=== PATIENT | male | born 1965 | race Caucasian/White ===

== ENCOUNTER → 2017-12-15 | Outpatient (CLI) | payer OTHER ==
--- NOTE | 2017-12-15 12:40 | Diagnostic Imaging Report ---
PROCEDURE: MR imaging cervical spine without contrast. TECHNIQUE: Multiplanar/multisequence MR imaging of the cervical spine was performed without contrast. INDICATION: Neck pain. COMPARISON: No prior MRI studies are available for comparison. FINDINGS: The curvature and alignment of the cervical spine are normal. The vertebral body marrow signal is normal. There is fairly normal height and hydration of the cervical discs. The cervical spinal cord demonstrates homogeneous signal intensity and normal morphology. No focal disc protrusion is seen. No significant central canal or neuroforaminal stenosis is identified. IMPRESSION: Essentially unremarkable MRI of the cervical spine. Dictated by: Dictated on workstation # [id number]
== END ==
LOC: RAD 11:38
PROVIDERS: ATTEND Family Medicine
DX: M54.2 Cervicalgia (principal)
CPT/HCPCS: 72141

== ENCOUNTER 2018-11-06 05:59 | Outpatient (CLI) | payer OTHER ==
[~2018-11-06] VITALS: Ht 167.6 cm; Wt 79.4 kg
[2018-11-06] MEDS ORDERED: BACL20TA PO (10:26)
[2018-11-06] MEDS ORDERED: MELO7.5T46 PO (10:26)
[2018-11-06] MEDS ORDERED: DULO60CA6 PO (10:26)
[2018-11-06] MEDS ORDERED: GABA600T2 PO (10:26)
[2018-11-06] MEDS ORDERED: TRAM50TA2 PO (10:26)
[2018-11-06] MEDS ORDERED: LISI-552 PO (10:26)
[2018-11-06] MEDS ORDERED: TIZA4CAP8 PO (10:26)
== END 2018-11-06 10:31 | disposition home or self-care (01) ==
LOC: PREOP 05:59
PROVIDERS: ATTEND Surgery
DX: Z01.818 Encounter for other preprocedural examination (principal)

== ENCOUNTER 2018-11-08 13:02 | Day surgery (SDC) | payer OTHER ==
[~2018-11-08] VITALS: Ht 167.6 cm; Wt 79.4 kg
[~2018-11-08 13:02] MED LIST: BACL20TA PO; DULO60CA6 PO; GABA600T2 PO; LISI-552 PO; MELO7.5T46 PO; TIZA4CAP8 PO; TRAM50TA2 PO
--- OUTSIDE RECORDS SUMMARY | 2018-11-08 13:21 | XMS REPORT ---
Author Author MEHRAN WATSON [facility] [place] Address [address] [place] [address] Phone Unavailable Care Team Providers Care Recruitment Internship Name Role Phone MEHRAN WATSON Unavailable Unavailable PROBLEMS Type Condition ICD9-CM Code OMS41-MI Code Onset Dates Condition Status SNOMED Code Problem Gastroesophageal reflux disease without esophagitis K21.9 Active 030188037 Problem Chronic pain syndrome G89.4 Active 042525430 Problem Degenerative disc disease, cervical M50.30 Active 21328163 Problem Chronic prescription opiate use Z79.891 Active 896755617 Problem Severe episode of recurrent major depressive disorder, without psychotic features F33.2 Active 06425330 Problem Degenerative disc disease, lumbar M51.36 Active 74533756 Problem Myoclonic jerking G25.3 Active 74781631 Problem Other chronic pain G89.29 Active 83573347 Problem Periodic limb movement disorder G47.61 Active 439473939 Problem Other constipation K59.09 Active 166569946978937 Problem Sacrococcygeal disorders, not elsewhere classified M53.3 Active 827195747 Problem Essential hypertension I10 Active 96098000 ALLERGIES Substance Reaction Event Type Date Status Lyrica Unknown Drug Allergy Jul, Active tegaderm Unknown Non Drug Allergy Jul, Active ENCOUNTERS Encounter Location Date Diagnosis [facility] [place] [id number] [place] [address] 35830- 1294 Sep, [facility] [address] [place] [address] 27535 -2326 Jul, Puncture wound without foreign body, right foot, initial encounter S91.331A ; Local infection of the skin and subcutaneous tissue, unspecified L08.9 and Encounter for immunization Z23 [facility] [place] [address] [address] 18 Jul, 2018 Degenerative disc disease, lumbar M51.36 [facility] [place] [id number] [place] [address] 41978- 9798 Jun, Degenerative disc disease, lumbar M51.36 [facility] [place] [id number] [place] [address] 67043- 5199 Jun, Chronic pain syndrome G89.4 ; Degenerative disc disease, lumbar M51.36 ; Essential hypertension I10 ; Myoclonic jerking G25.3 and Muscle spasm of back M62.830 [facility] [place] [id number] [place] [address] 51186- 5101 May, Acute non-recurrent frontal sinusitis J01.10 [place] [id number] [place] [address] 34386- 4127 May, Chronic pain syndrome G89.4 [place] [id number] [place] [address] 02601- 9689 Apr, Chronic pain syndrome G89.4 [place] [id number] [place] [address] 61105- 8506 March, Chronic pain syndrome G89.4 [facility] [place] [id number] [place] [address] 20411- 9854 Feb, Essential hypertension I10 ; Chronic pain syndrome G89.4 ; Periodic limb movement disorder G47.61 ; Myoclonic jerking G25.3 and Pain of left great toe M79.675 [place] [id number] [place] [address] 86742- 2173 Feb, [facility] [place] [id number] [place] [address] 04004- 6611 Feb, Chronic pain syndrome G89.4 [facility] [place] [id number] [place] [address] 30373- 6251 Dec, Chronic pain syndrome G89.4 [facility] [place] [id number] [place] [address] 03370- 9829 Nov, [facility] [place] [address] 23255- [address] Nov, Neck pain M54.2 ; Left hand weakness R29.898 ; Degenerative disc disease, cervical M50.30 ; Chronic prescription opiate use Z79.891 and Myoclonic jerking G25.3 [place] [id number] [place] [address] 60275- 3701 Nov, Chronic pain syndrome G89.4 [place] [id number] [place] [address] 55740- 7526 Sep, Chronic pain syndrome G89.4 [place] [address] 81864- 1909 Sep, Acute non-recurrent frontal sinusitis J01.10 [place] [id number] [place] [address] 52165- 1416 Aug, Chronic pain syndrome G89.4 [place] [id number] [place] [address] 13003- 9477 Jul, Other chronic pain G89.29 ; Sacrococcygeal disorders, not elsewhere classified M53.3 ; Essential hypertension I10 ; Other constipation K59.09 and Chronic pain syndrome G89.4 [place] [id number] [place] [address] 64188- 7332 Jun, Chronic pain syndrome G89.4 [place] [id number] [place] [address] 92277- 1131 May, Chronic pain syndrome G89.4 [place] [id number] [place] [address] 86885- 1701 Apr, Chest pain, unspecified type R07.9 [place] [id number] [place] [address] 85289- 4309 Apr, Chronic prescription opiate use Z79.891 ; Other constipation K59.09 ; Chest pain, unspecified type R07.9 ; Palpitations R00.2 and Essential hypertension I10 [place] [id number] [place] [address] 67699- 2454 Apr, Chronic pain syndrome G89.4 [place] [address] [place] [address] 79629- 5802 March, Chronic pain syndrome G89.4 [facility] [address] [place] [address] 33879 -3819 Feb, Acute non-recurrent frontal sinusitis J01.10 and Difficulty urinating R39.198 [place] [id number] [place] [address] 56209- 5189 Jan, [place] [id number] [place] [address] 41310- 6601 Jan, Chronic pain syndrome G89.4 [facility] [id number] [place] [address] 77823 -2562 Jan, Bronchitis J40 and OME (otitis media with effusion), bilateral H65.93 [place] [id number] [place] [address] 18563- 3322 Dec, Hematochezia K92.1 ; Periodic limb movement disorder G47.61 ; Chronic pain syndrome G89.4 ; Degenerative disc disease, cervical M50.30 ; Degenerative disc disease, lumbar M51.36 ; Other constipation K59.09 and SI joint arthritis M46.98 [place] [address] [place] [address] 27995- 7849 Oct, Chronic pain syndrome G89.4 [place] [id number] [place] [address] 82576- 0509 08 Oct, 2016 Chronic pain syndrome G89.4 ; Other constipation K59.09 ; Chronic prescription opiate use Z79.891 ; Degenerative disc disease, lumbar M51.36 ; Degenerative disc disease, cervical M50.30 ; Severe episode of recurrent major depressive disorder, without psychotic features F33.2 and Periodic limb movement disorder G47.61 [place] [id number] [place] [address] 42361- 0993 Sep, [place] [id number] [address] 20 Jul, 2016 Chronic prescription opiate use Z79.891 ; Chronic pain syndrome G89.4 ; Adverse effect of other opioids, initial encounter T40.2X5A and Other constipation K59.09 [place] [id number] [address] Jun, [place] [address] [address] 4762 May, [place] [address] [address] 3869 Apr, Chronic pain syndrome G89.4 ; Degenerative disc disease, cervical M50.30 ; Degenerative disc disease, lumbar M51.36 ; Gastroesophageal reflux disease without esophagitis K21.9 ; Severe episode of recurrent major depressive disorder, without psychotic features F33.2 ; Screening, lipid Z13.220 ; Urinary hesitancy R39.11 and Chronic prescription opiate use Z79.891 [place] [address] [facility] [id number] [address] 08 Apr, 2016 IMMUNIZATIONS Vaccine Route Administration Date Status TDAP (BOOSTRIX) IM Intramuscular Aug 09, 2018 Administered SOCIAL HISTORY Never Assessed REASON FOR VISIT Stepped on a nail Tuesday afternoon JStrasserRN PLAN OF CARE Activity Details Follow Up prn Reason: VITAL SIGNS Height 69 in 2018-08-09 Weight 175.8 lbs 2018-08-09 Temperature 98.3 degrees Fahrenheit 2018-08-09 Heart Rate 80 bpm 2018-08-09 Respiratory Rate 20 2018-08-09 BMI 25.96 kg/m2 2018-08-09 Blood pressure systolic 100 mmHg 2018-08-09 Blood pressure diastolic 70 mmHg 2018-08-09 MEDICATIONS Medication Instructions Dosage Frequency Start Date End Date Duration Status Gabapentin 800 MG Orally Three times a day 1 capsule 8h 90 Active Lisinopril 20 mg Orally Once a day 1 tablet 24h Apr, 90 days Active Cymbalta 60 mg Orally Once a day 2 capsules 24h Active Fluticasone Propionate 50 MCG/ACT Nasally Once a day 1 spray in each nostril 24h Feb, 30 day(s) Active Meloxicam 7.5 TAKE 1 TABLET BY MOUTH ONCE DAILY 30 Active Lumbar Back Brace/Support Pad Back stabilizer as directed Dec, lifetime Active Meloxicam 7.5 mg TAKE 1 TABLET BY MOUTH ONCE DAILY Active Requip 1 MG Orally Once a day can increase to bid if needed 1 tablet 1 to 3 hours before bedtime Feb, Active Baclofen 20 MG Orally 3 times a day 1 1/2 tablets 8h Dec, 30 days Active Tizanidine HCl 4 MG Orally Three times a day 1 tablet as needed 8h Dec 90 days Active Cephalexin 500 mg Orally 4 times a day 1 capsule 6h Jul, Jul, 10 day(s) Active Tramadol HCl 50 mg Orally 3 times a day 1 tablet as needed 8h 28 days Active RESULTS No Results PROCEDURES Procedure Date Ordered Result Body Site TDAP (BOOSTRIX) Aug 09, 2018 SINGLE IMMUNIZATION ADMIN Aug 09, 2018 INSTRUCTIONS MEDICATIONS ADMINISTERED No Known Medications MEDICAL (GENERAL) HISTORY Type Description Date Medical History depression Medical History lyme disease Medical History 19 years ago was in a work related accident-has been dealing with back, neck, shoulder, hip pain Medical History Gastroesophageal reflux disease without esophagitis Surgical History right rotator cuff tear repair Surgical History orthopedic surgery on both knees Surgical History Left rotator cuff repair Surgical History Nerve repair on left arm Hospitalization History Hospitalization for surgery only
--- OUTSIDE RECORDS SUMMARY | 2018-11-08 13:21 | XMS REPORT ---
Author Author SHERICE ANNAMARIE [facility] Address [address] [place] [address] Care Team Providers Care Housekeeper Cleaning Cooking Name Role Phone CHAGO SMILEYY Unavailable PROBLEMS Type Condition ICD9-CM Code AZU97-DL Code Onset Dates Condition Status SNOMED Code Problem Gastroesophageal reflux disease without esophagitis K21.9 Active 069130717 Problem Chronic pain syndrome G89.4 Active 706375766 Problem Degenerative disc disease, cervical M50.30 Active 91786629 Problem Chronic prescription opiate use Z79.891 Active 757181111 Problem Severe episode of recurrent major depressive disorder, without psychotic features F33.2 Active 34365297 Problem Degenerative disc disease, lumbar M51.36 Active 79013475 Problem Myoclonic jerking G25.3 Active 46894900 Problem Other chronic pain G89.29 Active 61412731 Problem Periodic limb movement disorder G47.61 Active 616226264 Problem Other constipation K59.09 Active 653610440823696 Problem Sacrococcygeal disorders, not elsewhere classified M53.3 Active 635426657 Problem Essential hypertension I10 Active 95976623 ALLERGIES No Information ENCOUNTERS Encounter Location Date Diagnosis [facility] [address] [address] Jul, Puncture wound without foreign body, right foot, initial encounter S91.331A ; Local infection of the skin and subcutaneous tissue, unspecified L08.9 and Encounter for immunization Z23 [facility] [address] [address] Jul, Degenerative disc disease, lumbar M51.36 [facility] [address] [place] [address] 75920- 7807 Jun, Degenerative disc disease, lumbar M51.36 [facility] [address] [place] [address] 94055- 9255 Jun, Chronic pain syndrome G89.4 ; Degenerative disc disease, lumbar M51.36 ; Essential hypertension I10 ; Myoclonic jerking G25.3 and Muscle spasm of back M62.830 [facility] [id number] [place] [address] 34820- 8988 May, Acute non-recurrent frontal sinusitis J01.10 [place] [address] [address]- [address] May, Chronic pain syndrome G89.4 [place] [id number] [place] [address] 74822- 9008 Apr, Chronic pain syndrome G89.4 [place] [id number] [place] [address] 47897- 9527 March, Chronic pain syndrome G89.4 [place] [address] 22830- 6818 Feb, Essential hypertension I10 ; Chronic pain syndrome G89.4 ; Periodic limb movement disorder G47.61 ; Myoclonic jerking G25.3 and Pain of left great toe M79.675 [place] [id number] [place] [address] 58840- 0386 Feb, [place] [id number] [place] [address] 94517- 5686 Feb, Chronic pain syndrome G89.4 [facility] [id number] [place] [address] 95974- 3569 Dec, Chronic pain syndrome G89.4 [facility] [id number] [place] [address] 96306- 8480 Nov, [place] [address] 61778- 9044 Nov, Neck pain M54.2 ; Left hand weakness R29.898 ; Degenerative disc disease, cervical M50.30 ; Chronic prescription opiate use Z79.891 and Myoclonic jerking G25.3 [place] [id number] [place] [address] 65555- 8599 Nov, Chronic pain syndrome G89.4 [facility] [id number] [place] [address] 00585- 0374 Sep, Chronic pain syndrome G89.4 [place] [id number] [place] [address] 63088- 3934 Sep, Acute non-recurrent frontal sinusitis J01.10 [place] [id number] [place] [address] 20143- 7257 Aug, Chronic pain syndrome G89.4 [place] [id number] [place] [address] 28357- 3826 Jul, Other chronic pain G89.29 ; Sacrococcygeal disorders, not elsewhere classified M53.3 ; Essential hypertension I10 ; Other constipation K59.09 and Chronic pain syndrome G89.4 [place] [id number] [place] [address] 33141- 2417 Jun, Chronic pain syndrome G89.4 [place] [id number] [place] [address] 72268- 2960 May, Chronic pain syndrome G89.4 [place] [id number] [place] [address] 07133- 3824 Apr, Chest pain, unspecified type R07.9 [place] [id number] [place] [address] 49819- 8461 Apr, Chronic prescription opiate use Z79.891 ; Other constipation K59.09 ; Chest pain, unspecified type R07.9 ; Palpitations R00.2 and Essential hypertension I10 [place] [id number] [place] [address] 69115- 7009 Apr, Chronic pain syndrome G89.4 [place] [id number] [place] [address] 35774- 0962 March, Chronic pain syndrome G89.4 [facility] [address] [place] [address] 80764 -4267 Feb, Acute non-recurrent frontal sinusitis J01.10 and Difficulty urinating R39.198 [facility] [address] [place] [address] 81295- 5654 Jan, [facility] [address] 80521- 5394 Jan, Chronic pain syndrome G89.4 [facility] [id number] [place] [address] 89349 -0392 Jan, Bronchitis J40 and OME (otitis media with effusion), bilateral H65.93 [facility] [id number] [place] [address] 06588- 0900 Dec, Hematochezia K92.1 ; Periodic limb movement disorder G47.61 ; Chronic pain syndrome G89.4 ; Degenerative disc disease, cervical M50.30 ; Degenerative disc disease, lumbar M51.36 ; Other constipation K59.09 and SI joint arthritis M46.98 [place] [id number] [place] [address] 26157- 1007 Oct, Chronic pain syndrome G89.4 [facility] [id number] [place] [address] 34602- 8037 08 Oct, 2016 Chronic pain syndrome G89.4 ; Other constipation K59.09 ; Chronic prescription opiate use Z79.891 ; Degenerative disc disease, lumbar M51.36 ; Degenerative disc disease, cervical M50.30 ; Severe episode of recurrent major depressive disorder, without psychotic features F33.2 and Periodic limb movement disorder G47.61 [place] [id number] [place] [address] 44620- 8241 Sep, [facility] [id number] [place] [address] 46230- 7668 20 Jul, 2016 Chronic prescription opiate use Z79.891 ; Chronic pain syndrome G89.4 ; Adverse effect of other opioids, initial encounter T40.2X5A and Other constipation K59.09 [place] [id number] [address]- 24[address] Jun, [place] [address] [address]- 4221 May, [place] [id number] [address]- 3130 Apr, Chronic pain syndrome G89.4 ; Degenerative disc disease, cervical M50.30 ; Degenerative disc disease, lumbar M51.36 ; Gastroesophageal reflux disease without esophagitis K21.9 ; Severe episode of recurrent major depressive disorder, without psychotic features F33.2 ; Screening, lipid Z13.220 ; Urinary hesitancy R39.11 and Chronic prescription opiate use Z79.891 [place] [id number] [address]- 9124 Apr, IMMUNIZATIONS No Known Immunizations SOCIAL HISTORY Never Assessed REASON FOR VISIT Controlled Med Refill PLAN OF CARE VITAL SIGNS MEDICATIONS Medication Instructions Dosage Frequency Start Date End Date Duration Status Tramadol HCl 50 mg Orally 3 times a day 1 tablet as needed 8h 28 days Active RESULTS No Results PROCEDURES No Known procedures INSTRUCTIONS MEDICATIONS ADMINISTERED No Known Medications MEDICAL [...]
--- OUTSIDE RECORDS SUMMARY | 2018-11-08 13:21 | XMS REPORT ---
Author Author SHERICE ANNAMARIE [facility] Address [address] [place] [address] Care Team Providers Care Drapery Operator Name Role Phone ANNAMARIE SMILEY Unavailable PROBLEMS Type Condition ICD9-CM Code DPC37-OX Code Onset Dates Condition Status SNOMED Code Problem Gastroesophageal reflux disease without esophagitis K21.9 Active 888801637 Problem Chronic pain syndrome G89.4 Active 649524395 Problem Degenerative disc disease, cervical M50.30 Active 00596902 Problem Chronic prescription opiate use Z79.891 Active 316297838 Problem Severe episode of recurrent major depressive disorder, without psychotic features F33.2 Active 01395781 Problem Degenerative disc disease, lumbar M51.36 Active 31074997 Problem Myoclonic jerking G25.3 Active 78842844 Problem Other chronic pain G89.29 Active 49755451 Problem Periodic limb movement disorder G47.61 Active 300477308 Problem Other constipation K59.09 Active 548969989501844 Problem Sacrococcygeal disorders, not elsewhere classified M53.3 Active 868000387 Problem Essential hypertension I10 Active 33882245 ALLERGIES Substance Reaction Event Type Date Status Lyrica Unknown Drug Allergy Sep, Active tegaderm Unknown Non Drug Allergy Sep, Active ENCOUNTERS Encounter Location Date Diagnosis [facility] [id number], [place] [address] Sep, Chronic pain syndrome G89.4 ; Degenerative disc disease, cervical M50.30 ; Degenerative disc disease, lumbar M51.36 ; Myoclonic jerking G25.3 ; Anemia, unspecified type D64.9 ; Abnormal bowel habits R19.8 and Other fatigue R53.83 [facility] [id number] [address] Sep, [facility] [id number] [address] Sep, Essential hypertension I10 [facility] [id number] [place] [address] 35988- 6117 Sep, Degenerative disc disease, lumbar M51.36 [facility] [id number] [place] [address] 65934- 4726 16 Aug, 2018 Degenerative disc disease, lumbar M51.36 [facility] [address] [address] 19 Jul, 2018 Puncture wound without foreign body, right foot, initial encounter S91.331A ; Local infection of the skin and subcutaneous tissue, unspecified L08.9 and Encounter for immunization Z23 [place] [address] [address] 18 Jul, 2018 Degenerative disc disease, lumbar M51.36 [place] [id number] [place] [address] 45669- 5113 Jun, Degenerative disc disease, lumbar M51.36 [place] [id number] [place] [address] 85769- 9199 Jun, Chronic pain syndrome G89.4 ; Degenerative disc disease, lumbar M51.36 ; Essential hypertension I10 ; Myoclonic jerking G25.3 and Muscle spasm of back M62.830 [place] [id number] [place] [address] 38850- 1971 May, Acute non-recurrent frontal sinusitis J01.10 [place] [id number] [place] [address] 00296- 4527 May, Chronic pain syndrome G89.4 [place] [id number] [place] [address] 07367- 5513 Apr, Chronic pain syndrome G89.4 [place] [id number] [place] [address] 70528- 3775 March, Chronic pain syndrome G89.4 [place] [id number] [place] [address] 53805- 7540 Feb, Essential hypertension I10 ; Chronic pain syndrome G89.4 ; Periodic limb movement disorder G47.61 ; Myoclonic jerking G25.3 and Pain of left great toe M79.675 [facility] [id number] [place] [address] 70217- 6033 Feb, [facility] [id number] [place] [address] 00138- 1696 Feb, Chronic pain syndrome G89.4 [facility] [id number] [place] [address] 73539- 1397 Dec, Chronic pain syndrome G89.4 [place] [id number] [place] [address] 31397- 9874 Nov, [facility] [id number] [place] [address] 12033- 6279 Nov, Neck pain M54.2 ; Left hand weakness R29.898 ; Degenerative disc disease, cervical M50.30 ; Chronic prescription opiate use Z79.891 and Myoclonic jerking G25.3 [facility] [id number] [place] [address] 30411- 3614 Nov, Chronic pain syndrome G89.4 [facility] [id number] [place] [address] 11587- 2838 Sep, Chronic pain syndrome G89.4 [facility] [id number] [place] [address] 99429- 0419 Sep, Acute non-recurrent frontal sinusitis J01.10 [facility] [id number] [place] [address] 08756- 1195 Aug, Chronic pain syndrome G89.4 [facility] [id number] [place] [address] 59355- 7494 Jul, Other chronic pain G89.29 ; Sacrococcygeal disorders, not elsewhere classified M53.3 ; Essential hypertension I10 ; Other constipation K59.09 and Chronic pain syndrome G89.4 [facility] [id number] [place] [address] 21249- 6038 Jun, Chronic pain syndrome G89.4 [place] [id number] [place] [address] 58921- 6958 May, Chronic pain syndrome G89.4 [place] [address] 90548- 0572 Apr, Chest pain, unspecified type R07.9 [place] [address] 82840- 2434 Apr, Chronic prescription opiate use Z79.891 ; Other constipation K59.09 ; Chest pain, unspecified type R07.9 ; Palpitations R00.2 and Essential hypertension I10 [place] [address] 94673- 1328 Apr, Chronic pain syndrome G89.4 [place] [address] 04041- 8984 March, Chronic pain syndrome G89.4 [facility] [address] [address] Feb, Acute non-recurrent frontal sinusitis J01.10 and Difficulty urinating R39.198 [place] [id number] [place] [address] 64881- 0351 Jan, [place] [address] 17086- 1303 Jan, Chronic pain syndrome G89.4 [facility] [id number] [place] [address] 90560 -4397 Jan, Bronchitis J40 and OME (otitis media with effusion), bilateral H65.93 [facility] [id number] [place] [address] 59121- 2519 Dec, Hematochezia K92.1 ; Periodic limb movement disorder G47.61 ; Chronic pain syndrome G89.4 ; Degenerative disc disease, cervical M50.30 ; Degenerative disc disease, lumbar M51.36 ; Other constipation K59.09 and SI joint arthritis M46.98 [place] [id number] [place] [address] 36545- 6827 Oct, Chronic pain syndrome G89.4 [place] [id number] [place] [address] 41215- 5513 Oct, Chronic pain syndrome G89.4 ; Other constipation K59.09 ; Chronic prescription opiate use Z79.891 ; Degenerative disc disease, lumbar M51.36 ; Degenerative disc disease, cervical M50.30 ; Severe episode of recurrent major depressive disorder, without psychotic features F33.2 and Periodic limb movement disorder G47.61 [place] [id number] [place] [address] 44643- 6112 Sep, [address] 15[address]- 0531 Jul, Chronic prescription opiate use Z79.891 ; Chronic pain syndrome G89.4 ; Adverse effect of other opioids, initial encounter T40.2X5A and Other constipation K59.09 [place] [id number] [place] [address] 29788- 6284 Jun, [place] [id number] [place] [address] 36851- 3361 May, [place] [id number] [place] [address] 52832- 8170 Apr, Chronic pain syndrome G89.4 ; Degenerative disc disease, cervical M50.30 ; Degenerative disc disease, lumbar M51.36 ; Gastroesophageal reflux disease without esophagitis K21.9 ; Severe episode of recurrent major depressive disorder, without psychotic features F33.2 ; Screening, lipid Z13.220 ; Urinary hesitancy R39.11 and Chronic prescription opiate use Z79.891 [place] [id number] [place] [address] 01256- 6602 08 Apr, 2016 IMMUNIZATIONS No Known Immunizations SOCIAL HISTORY Never Assessed REASON FOR VISIT Check up for pain and results from blood test done last week Sveta Parker PLAN OF CARE Activity Details Follow Up 3 Months Reason:Chronic pain VITAL SIGNS Height 69 in 2018-10-20 Weight 178.4 lbs 2018-10-20 Temperature 96.8 degrees Fahrenheit 2018-10-20 Heart Rate 77 bpm 2018-10-20 Respiratory Rate 20 2018-10-20 BMI 26.34 kg/m2 2018-10-20 Blood pressure systolic 132 mmHg 2018-10-20 Blood pressure diastolic 84 mmHg 2018-10-20 MEDICATIONS Medication Instructions Dosage Frequency Start Date End Date Duration Status Cymbalta 60 mg Orally Once a day 2 capsules 24h Active Fluticasone Propionate 50 MCG/ACT Nasally Once a day 1 spray in each nostril 24h Feb, 30 day(s) Active Lumbar Back Brace/Support Pad Back stabilizer as directed Dec, lifetime Active Lisinopril 20 mg Orally Once a day 1 tablet 24h Apr, 90 days Active Tizanidine HCl 4 MG Orally Three times a day 1 tablet as needed 8h Dec Active Baclofen 20 MG Orally 3 times a day 1 1/2 tablets 8h Dec, Active Tramadol HCl 50 mg Orally 3 times a day 1 tablet as needed 8h Active Gabapentin 800 MG Orally Three times a day 1 capsule 8h Active Meloxicam 7.5 mg TAKE 1 TABLET BY MOUTH ONCE DAILY Active RESULTS No Results PROCEDURES Procedure Date Ordered Result Body Site DRUG TEST PRSMV CHEM ANLYZR Oct 20, 2018 COMPLETE CBC W/AUTO DIFF WBC Oct 20, 2018 ASSAY OF IRON Oct 20, 2018 IRON BINDING TEST Oct 20, 2018 ASSAY THYROID STIM HORMONE Oct 20, 2018 ASSAY OF FERRITIN Oct 20, 2018 INSTRUCTIONS MEDICATIONS ADMINISTERED No Known Medications [...]
--- OUTSIDE RECORDS SUMMARY | 2018-11-08 13:21 | XMS REPORT ---
Author Author SHERICE ANNAMARIE [facility] Address [address] [place] [address] Care Team Providers Care A Operator Name Role Phone SHERICECOURTNEY MILLERHANY Unavailable PROBLEMS Type Condition ICD9-CM Code RXL79-WH Code Onset Dates Condition Status SNOMED Code Problem Gastroesophageal reflux disease without esophagitis K21.9 Active 579574978 Problem Chronic pain syndrome G89.4 Active 057065420 Problem Degenerative disc disease, cervical M50.30 Active 22328828 Problem Chronic prescription opiate use Z79.891 Active 258400410 Problem Severe episode of recurrent major depressive disorder, without psychotic features F33.2 Active 03540231 Problem Degenerative disc disease, lumbar M51.36 Active 63910744 Problem Myoclonic jerking G25.3 Active 59886295 Problem Other chronic pain G89.29 Active 96171916 Problem Periodic limb movement disorder G47.61 Active 638389234 Problem Other constipation K59.09 Active 815488892103429 Problem Sacrococcygeal disorders, not elsewhere classified M53.3 Active 140218053 Problem Essential hypertension I10 Active 92717555 ALLERGIES No Information ENCOUNTERS Encounter Location Date Diagnosis [place] [id number] [place] [address] 19416- 4905 Sep, [facility] [id number] [place] [address] 95478- 5898 Sep, [facility] [id number] [place] [address] 58179- 4626 Sep, Essential hypertension I10 [facility] [id number] [place] [address] 30589- 5373 Sep, Degenerative disc disease, lumbar M51.36 [facility] [id number] [place] [address] 73000- 4057 Aug, Degenerative disc disease, lumbar M51.36 [facility] [address] [place] [address] 81027 -2941 19 Jul, 2018 Puncture wound without foreign body, right foot, initial encounter S91.331A ; Local infection of the skin and subcutaneous tissue, unspecified L08.9 and Encounter for immunization Z23 [facility] [id number] [place] [address] 40099- 5761 18 Jul, 2018 Degenerative disc disease, lumbar M51.36 [facility] [id number] [place] [address] 16871- 2090 Jun, Degenerative disc disease, lumbar M51.36 [facility] [address] 10636- 8752 Jun, Chronic pain syndrome G89.4 ; Degenerative disc disease, lumbar M51.36 ; Essential hypertension I10 ; Myoclonic jerking G25.3 and Muscle spasm of back M62.830 [facility] [id number] [place] [address] 86807- 1597 May, Acute non-recurrent frontal sinusitis J01.10 [place] [address] 41058- 7369 May, Chronic pain syndrome G89.4 [facility] [id number] [place] [address] 38974- 1755 Apr, Chronic pain syndrome G89.4 [place] [address] 77560- 3382 March, Chronic pain syndrome G89.4 [place] [id number] [place] [address] 51275- 6000 Feb, Essential hypertension I10 ; Chronic pain syndrome G89.4 ; Periodic limb movement disorder G47.61 ; Myoclonic jerking G25.3 and Pain of left great toe M79.675 [facility] [id number] [place] [address] 62731- 3226 Feb, [facility] [address] [place] [address] 67930- 3967 Feb, Chronic pain syndrome G89.4 [facility] [id number] [place] [address] 15535- 2388 Dec, Chronic pain syndrome G89.4 [facility] [id number] [place] [address] 34378- 2879 Nov, [facility] [address] 98318- 9372 Nov, Neck pain M54.2 ; Left hand weakness R29.898 ; Degenerative disc disease, cervical M50.30 ; Chronic prescription opiate use Z79.891 and Myoclonic jerking G25.3 [place] [id number] [place] [address] 92802- 1439 Nov, Chronic pain syndrome G89.4 [facility] [id number] [place] [address] 10512- 9056 Sep, Chronic pain syndrome G89.4 [facility] [id number] [place] [address] 60927- 7877 Sep, Acute non-recurrent frontal sinusitis J01.10 [facility] [id number] [place] [address] 60638- 8337 Aug, Chronic pain syndrome G89.4 [facility] [id number] [place] [address] 96824- 5092 Jul, Other chronic pain G89.29 ; Sacrococcygeal disorders, not elsewhere classified M53.3 ; Essential hypertension I10 ; Other constipation K59.09 and Chronic pain syndrome G89.4 [facility] [id number] [place] [address] 58933- 3621 Jun, Chronic pain syndrome G89.4 [facility] [id number] [place] [address] 59543- 3847 May, Chronic pain syndrome G89.4 [place] [address] 28114- 8271 Apr, Chest pain, unspecified type R07.9 [place] [address] 78493- 1882 Apr, Chronic prescription opiate use Z79.891 ; Other constipation K59.09 ; Chest pain, unspecified type R07.9 ; Palpitations R00.2 and Essential hypertension I10 [place] [address] 61710- 5899 Apr, Chronic pain syndrome G89.[address] 46367- 2927 March, Chronic pain syndrome G89.4 [facility] [address] 72305 -6012 Feb, Acute non-recurrent frontal sinusitis J01.10 and Difficulty urinating R39.198 [place] [address] 01221- 4399 Jan, [address] 01055- 4807 Jan, Chronic pain syndrome G89.4 [facility] [place] [address] 26105 -6915 Jan, Bronchitis J40 and OME (otitis media with effusion), bilateral H65.93 [place] [address] 97736- 3149 Dec, Hematochezia K92.1 ; Periodic limb movement disorder G47.61 ; Chronic pain syndrome G89.4 ; Degenerative disc disease, cervical M50.30 ; Degenerative disc disease, lumbar M51.36 ; Other constipation K59.09 and SI joint arthritis M46.[address] 47391- 0378 Oct, Chronic pain syndrome G89.4 [place] [address] [place] [address] 90737- 1596 Oct, Chronic pain syndrome G89.4 ; Other constipation K59.09 ; Chronic prescription opiate use Z79.891 ; Degenerative disc disease, lumbar M51.36 ; Degenerative disc disease, cervical M50.30 ; Severe episode of recurrent major depressive disorder, without psychotic features F33.2 and Periodic limb movement disorder G47.61 [place] [id number] [place] [address] 21851- 3219 Sep, [place] [id number] [place] [address] 09151- 0904 Jul, Chronic prescription opiate use Z79.891 ; Chronic pain syndrome G89.4 ; Adverse effect of other opioids, initial encounter T40.2X5A and Other constipation K59.09 [place] [id number] [place] [address] 63140- 9132 Jun, [place] [address] 31966- 5731 May, [place] [id number] [place] [address] 40954- 5379 Apr, Chronic pain syndrome G89.4 ; Degenerative disc disease, cervical M50.30 ; Degenerative disc disease, lumbar M51.36 ; Gastroesophageal reflux disease without esophagitis K21.9 ; Severe episode of recurrent major depressive disorder, without psychotic features F33.2 ; Screening, lipid Z13.220 ; Urinary hesitancy R39.11 and Chronic prescription opiate use Z79.891 [place] [id number] [place] [address] 60081- 4110 08 Apr, 2016 IMMUNIZATIONS No Known Immunizations SOCIAL HISTORY Never Assessed REASON FOR VISIT Referral PLAN OF CARE VITAL SIGNS MEDICATIONS Unknown Medications RESULTS No Results PROCEDURES No Known procedures [...]
--- OUTSIDE RECORDS SUMMARY | 2018-11-08 13:22 | XMS REPORT ---
Author Author SHERICE ANNAMARIE [facility] Address [address] [place] [address] Care Team Providers Care Coordinator Of Library Services Name Role Phone CHAGO SMILEYY Unavailable PROBLEMS Type Condition ICD9-CM Code LEU00-FZ Code Onset Dates Condition Status SNOMED Code Problem Gastroesophageal reflux disease without esophagitis K21.9 Active 036419227 Problem Chronic pain syndrome G89.4 Active 483816960 Problem Degenerative disc disease, cervical M50.30 Active 46509075 Problem Chronic prescription opiate use Z79.891 Active 719231007 Problem Severe episode of recurrent major depressive disorder, without psychotic features F33.2 Active 63193824 Problem Degenerative disc disease, lumbar M51.36 Active 02868545 Problem Myoclonic jerking G25.3 Active 66474376 Problem Other chronic pain G89.29 Active 53444239 Problem Periodic limb movement disorder G47.61 Active 555482765 Problem Other constipation K59.09 Active 843449667491437 Problem Sacrococcygeal disorders, not elsewhere classified M53.3 Active 411937173 Problem Essential hypertension I10 Active 78049825 ALLERGIES No Information ENCOUNTERS Encounter Location Date Diagnosis [place] [id number] [place] [address] 54748- 9167 Jun, Degenerative disc disease, lumbar M51.36 [place] [id number] [place] [address] 66476- 0559 Jun, Chronic pain syndrome G89.4 ; Degenerative disc disease, lumbar M51.36 ; Essential hypertension I10 ; Myoclonic jerking G25.3 and Muscle spasm of back M62.830 [place] [id number] [place] [address] 86494- 0551 May, Acute non-recurrent frontal sinusitis J01.10 [place] [id number] [place] [address] 63425- 1534 May, Chronic pain syndrome G89.4 [facility] [address] [place] [address] 03865- 3538 Apr, Chronic pain syndrome G89.4 [facility] [id number] [place] [address] 99492- 5917 March, Chronic pain syndrome G89.4 [facility] [id number] [place] [address] 17933- 0627 Feb, Essential hypertension I10 ; Chronic pain syndrome G89.4 ; Periodic limb movement disorder G47.61 ; Myoclonic jerking G25.3 and Pain of left great toe M79.675 [facility] [id number] [place] [address] 30798- 3597 Feb, [facility] [id number] [place] [address] 93583- 4324 Feb, Chronic pain syndrome G89.4 [facility] [id number] [place] [address] 18925- 3023 Dec, Chronic pain syndrome G89.4 [facility] [id number] [place] [address] 92559- 7150 Nov, [facility] [id number] [place] [address] 22657- 5323 Nov, Neck pain M54.2 ; Left hand weakness R29.898 ; Degenerative disc disease, cervical M50.30 ; Chronic prescription opiate use Z79.891 and Myoclonic jerking G25.3 [facility] [address] [place] [address] 67128- 6038 Nov, Chronic pain syndrome G89.4 [facility] [id number] [place] [address] 44740- 3578 Sep, Chronic pain syndrome G89.4 [facility] [id number] [place] [address] 66206- 5840 Sep, Acute non-recurrent frontal sinusitis J01.10 [facility] [id number] [place] [address] 00367- 9039 Aug, Chronic pain syndrome G89.4 [facility] [id number] [place] [address] 25483- 4034 Jul, Other chronic pain G89.29 ; Sacrococcygeal disorders, not elsewhere classified M53.3 ; Essential hypertension I10 ; Other constipation K59.09 and Chronic pain syndrome G89.4 [facility] [address] 78010- 9081 Jun, Chronic pain syndrome G89.4 [place] [address] 26514- 3740 May, Chronic pain syndrome G89.4 [facility] [id number] [place] [address] 96623- 0599 Apr, Chest pain, unspecified type R07.9 [facility] [address] 42354- 5575 Apr, Chronic prescription opiate use Z79.891 ; Other constipation K59.09 ; Chest pain, unspecified type R07.9 ; Palpitations R00.2 and Essential hypertension I10 [facility] [id number] [place] [address] 68148- 1501 Apr, Chronic pain syndrome G89.4 [facility] [id number] [place] [address] 44385- 5499 March, Chronic pain syndrome G89.4 [facility] [place] [facility] [id number] [place] [address] 17399 -3005 Feb, Acute non-recurrent frontal sinusitis J01.10 and Difficulty urinating R39.198 [facility] [id number] [place] [address] 32865- 7514 Jan, [facility] [address] 84150- 3311 Jan, Chronic pain syndrome G89.4 [facility] [address] [place] [address] 33325 -3600 Jan, Bronchitis J40 and OME (otitis media with effusion), bilateral H65.93 [facility] [id number] [place] [address] 24672- 1231 Dec, Hematochezia K92.1 ; Periodic limb movement disorder G47.61 ; Chronic pain syndrome G89.4 ; Degenerative disc disease, cervical M50.30 ; Degenerative disc disease, lumbar M51.36 ; Other constipation K59.09 and SI joint arthritis M46.98 [facility] [id number] [place] [address] 99319- 8646 Oct, Chronic pain syndrome G89.4 [facility] [id number] [place] [address] 55225- 0408 Oct, Chronic pain syndrome G89.4 ; Other constipation K59.09 ; Chronic prescription opiate use Z79.891 ; Degenerative disc disease, lumbar M51.36 ; Degenerative disc disease, cervical M50.30 ; Severe episode of recurrent major depressive disorder, without psychotic features F33.2 and Periodic limb movement disorder G47.61 [facility] [id number] [place] [address] 39536- 1967 Sep, [facility] [id number] [place] [address] 94452- 1937 Jul, Chronic prescription opiate use Z79.891 ; Chronic pain syndrome G89.4 ; Adverse effect of other opioids, initial encounter T40.2X5A and Other constipation K59.09 [facility] [id number] [place] [address] 00308- 6006 Jun, [facility] [id number] [place] [address] 86704- 8882 May, [facility] [id number] [place] [address] 04455- 3277 Apr, Chronic pain syndrome G89.4 ; Degenerative disc disease, cervical M50.30 ; Degenerative disc disease, lumbar M51.36 ; Gastroesophageal reflux disease without esophagitis K21.9 ; Severe episode of recurrent major depressive disorder, without psychotic features F33.2 ; Screening, lipid Z13.220 ; Urinary hesitancy R39.11 and Chronic prescription opiate use Z79.891 [facility] [address] [facility] [id number] [place] [address] 08 Apr, 2016 IMMUNIZATIONS No Known Immunizations [...]
--- OUTSIDE RECORDS SUMMARY | 2018-11-08 13:22 | XMS REPORT ---
Author Author SHERICE ANNAMARIE [facility] Address [address] [place] [address] Care Team Providers Care Cake Press Operator Helper Name Role Phone CHAGO SMILEYY Unavailable PROBLEMS Type Condition ICD9-CM Code XLB88-HC Code Onset Dates Condition Status SNOMED Code Problem Gastroesophageal reflux disease without esophagitis K21.9 Active 177470286 Problem Chronic pain syndrome G89.4 Active 556132398 Problem Degenerative disc disease, cervical M50.30 Active 28123630 Problem Chronic prescription opiate use Z79.891 Active 643729153 Problem Severe episode of recurrent major depressive disorder, without psychotic features F33.2 Active 94543170 Problem Degenerative disc disease, lumbar M51.36 Active 84144279 Problem Myoclonic jerking G25.3 Active 50059373 Problem Other chronic pain G89.29 Active 29332446 Problem Periodic limb movement disorder G47.61 Active 096630887 Problem Other constipation K59.09 Active 572172259196768 Problem Sacrococcygeal disorders, not elsewhere classified M53.3 Active 702984640 Problem Essential hypertension I10 Active 69823624 ALLERGIES No Information ENCOUNTERS Encounter Location Date Diagnosis [facility] [address], [place] [address] Jul, Puncture wound without foreign body, right foot, initial encounter S91.331A ; Local infection of the skin and subcutaneous tissue, unspecified L08.9 and Encounter for immunization Z23 [facility] [place] [address] [address]131 Jul, Degenerative disc disease, lumbar M51.36 [facility] [place] [address] [place] [address] 04134- 1372 Jun, Degenerative disc disease, lumbar M51.36 [facility] [place] [address] [place] [address] 09680- 8561 Jun, Chronic pain syndrome G89.4 ; Degenerative disc disease, lumbar M51.36 ; Essential hypertension I10 ; Myoclonic jerking G25.3 and Muscle spasm of back M62.830 [facility] [place] [id number] [place] [address] 45731- 2856 May, Acute non-recurrent frontal sinusitis J01.10 [place] [address] 21512- 2874 May, Chronic pain syndrome G89.4 [place] [id number] [place] [address] 16015- 2004 Apr, Chronic pain syndrome G89.4 [place] [id number] [place] [address] 20154- 2135 March, Chronic pain syndrome G89.4 [place] [address] 27738- 4922 Feb, Essential hypertension I10 ; Chronic pain syndrome G89.4 ; Periodic limb movement disorder G47.61 ; Myoclonic jerking G25.3 and Pain of left great toe M79.675 [place] [id number] [place] [address] 31301- 5479 Feb, [place] [id number] [place] [address] 89852- 4690 Feb, Chronic pain syndrome G89.4 [facility] [place] [id number] [place] [address] 41407- 6248 Dec, Chronic pain syndrome G89.4 [facility] [place] [id number] [place] [address] 55719- 9595 Nov, [place] [address] 37692- 2309 Nov, Neck pain M54.2 ; Left hand weakness R29.898 ; Degenerative disc disease, cervical M50.30 ; Chronic prescription opiate use Z79.891 and Myoclonic jerking G25.3 [place] [id number] [place] [address] 27371- 8660 Nov, Chronic pain syndrome G89.4 [facility] [place] [id number] [place] [address] 77326- 8562 Sep, Chronic pain syndrome G89.4 [place] [id number] [place] [address] 35558- 8487 Sep, Acute non-recurrent frontal sinusitis J01.10 [place] [id number] [place] [address] 14419- 9781 Aug, Chronic pain syndrome G89.4 [place] [id number] [place] [address] 91616- 2200 Jul, Other chronic pain G89.29 ; Sacrococcygeal disorders, not elsewhere classified M53.3 ; Essential hypertension I10 ; Other constipation K59.09 and Chronic pain syndrome G89.4 [place] [id number] [place] [address] 43381- 1178 Jun, Chronic pain syndrome G89.4 [place] [id number] [place] [address] 60614- 6025 May, Chronic pain syndrome G89.4 [place] [id number] [place] [address] 74475- 2713 Apr, Chest pain, unspecified type R07.9 [place] [id number] [place] [address] 28216- 0475 Apr, Chronic prescription opiate use Z79.891 ; Other constipation K59.09 ; Chest pain, unspecified type R07.9 ; Palpitations R00.2 and Essential hypertension I10 [place] [id number] [place] [address] 45126- 9686 Apr, Chronic pain syndrome G89.4 [place] [id number] [place] [address] 32469- 6035 March, Chronic pain syndrome G89.4 [facility] [address] [place] [address] 16431 -5967 Feb, Acute non-recurrent frontal sinusitis J01.10 and Difficulty urinating R39.198 [facility] [place] [address] [place] [address] 86651- 9692 Jan, [facility] [place] [address] 95686- 9829 Jan, Chronic pain syndrome G89.4 [facility] [id number] [place] [address] 50611 -6101 Jan, Bronchitis J40 and OME (otitis media with effusion), bilateral H65.93 [facility] [place] [id number] [place] [address] 47628- 1592 Dec, Hematochezia K92.1 ; Periodic limb movement disorder G47.61 ; Chronic pain syndrome G89.4 ; Degenerative disc disease, cervical M50.30 ; Degenerative disc disease, lumbar M51.36 ; Other constipation K59.09 and SI joint arthritis M46.98 [place] [id number] [place] [address] 06671- 6557 Oct, Chronic pain syndrome G89.4 [facility] [place] [id number] [place] [address] 30682- 6072 08 Oct, 2016 Chronic pain syndrome G89.4 ; Other constipation K59.09 ; Chronic prescription opiate use Z79.891 ; Degenerative disc disease, lumbar M51.36 ; Degenerative disc disease, cervical M50.30 ; Severe episode of recurrent major depressive disorder, without psychotic features F33.2 and Periodic limb movement disorder G47.61 [place] [id number] [place] [address] 16181- 6294 Sep, [facility] [place] [id number] [place] [address] 17452- 4540 20 Jul, 2016 Chronic prescription opiate use Z79.891 ; Chronic pain syndrome G89.4 ; Adverse effect of other opioids, initial encounter T40.2X5A and Other constipation K59.09 [place] [id number] [address]- 2518 Jun, [place] [address] [address]- 2645 May, [place] [id number], [place] [address]- 2393 Apr, Chronic pain syndrome G89.4 ; Degenerative disc disease, cervical M50.30 ; Degenerative disc disease, lumbar M51.36 ; Gastroesophageal reflux disease without esophagitis K21.9 ; Severe episode of recurrent major depressive disorder, without psychotic features F33.2 ; Screening, lipid Z13.220 ; Urinary hesitancy R39.11 and Chronic prescription opiate use Z79.891 [place] [id number], [place] [address]- 4884 Apr, IMMUNIZATIONS No Known Immunizations SOCIAL HISTORY Never Assessed REASON FOR VISIT Refill request PLAN OF CARE VITAL SIGNS MEDICATIONS Medication [...]
--- OUTSIDE RECORDS SUMMARY | 2018-11-08 13:22 | XMS REPORT ---
Author Author SHERICE ANNAMARIE [facility] Address [address] [place] [address] Care Team Providers Care Newspaper Delivery Driver Name Role Phone CHAGO SMILEYY Unavailable PROBLEMS Type Condition ICD9-CM Code KUU90-YE Code Onset Dates Condition Status SNOMED Code Problem Gastroesophageal reflux disease without esophagitis K21.9 Active 045708652 Problem Chronic pain syndrome G89.4 Active 622188632 Problem Degenerative disc disease, cervical M50.30 Active 11311024 Problem Chronic prescription opiate use Z79.891 Active 469308504 Problem Severe episode of recurrent major depressive disorder, without psychotic features F33.2 Active 07622025 Problem Degenerative disc disease, lumbar M51.36 Active 38993443 Problem Myoclonic jerking G25.3 Active 29314076 Problem Other chronic pain G89.29 Active 51977117 Problem Periodic limb movement disorder G47.61 Active 775650423 Problem Other constipation K59.09 Active 519561078563214 Problem Sacrococcygeal disorders, not elsewhere classified M53.3 Active 936031288 Problem Essential hypertension I10 Active 44902636 ALLERGIES No Information ENCOUNTERS Encounter Location Date Diagnosis [place] [id number] [place] [address] 78987- 2300 Jun, Chronic pain syndrome G89.4 ; Degenerative disc disease, lumbar M51.36 ; Essential hypertension I10 ; Myoclonic jerking G25.3 and Muscle spasm of back M62.830 [place] [id number] [place] [address] 50128- 6612 May, Acute non-recurrent frontal sinusitis J01.10 [place] [id number] [place] [address] 60238- 7282 May, Chronic pain syndrome G89.4 [place] [address] 61035- 7467 Apr, Chronic pain syndrome G89.4 [facility] [id number] [place] [address] 81557- 2704 March, Chronic pain syndrome G89.4 [facility] [id number] [place] [address] 41931- 0518 Feb, Essential hypertension I10 ; Chronic pain syndrome G89.4 ; Periodic limb movement disorder G47.61 ; Myoclonic jerking G25.3 and Pain of left great toe M79.675 [facility] [id number] [place] [address] 89771- 8903 Feb, [facility] [id number] [place] [address] 81025- 8651 Feb, Chronic pain syndrome G89.4 [facility] [id number] [place] [address] 53764- 2082 Dec, Chronic pain syndrome G89.4 [facility] [id number] [place] [address] 22691- 7783 Nov, [facility] [id number] [place] [address] 97736- 1825 Nov, Neck pain M54.2 ; Left hand weakness R29.898 ; Degenerative disc disease, cervical M50.30 ; Chronic prescription opiate use Z79.891 and Myoclonic jerking G25.3 [facility] [id number] [place] [address] 63476- 1194 Nov, Chronic pain syndrome G89.4 [facility] [id number] [place] [address] 25557- 7113 Sep, Chronic pain syndrome G89.4 [facility] [id number] [place] [address] 31847- 0609 Sep, Acute non-recurrent frontal sinusitis J01.10 [facility] [id number] [place] [address] 55573- 3773 Aug, Chronic pain syndrome G89.4 [facility] [id number] [place] [address] 07921- 9946 Jul, Other chronic pain G89.29 ; Sacrococcygeal disorders, not elsewhere classified M53.3 ; Essential hypertension I10 ; Other constipation K59.09 and Chronic pain syndrome G89.4 [facility] [address] 84755- 9811 Jun, Chronic pain syndrome G89.4 [facility] [address] 63170- 6968 May, Chronic pain syndrome G89.4 [place] [address] 49648- 7545 Apr, Chest pain, unspecified type R07.9 [place] [address] 63462- 0477 Apr, Chronic prescription opiate use Z79.891 ; Other constipation K59.09 ; Chest pain, unspecified type R07.9 ; Palpitations R00.2 and Essential hypertension I10 [place] [address] 47270- 2862 Apr, Chronic pain syndrome G89.4 [facility] [id number] [place] [address] 39895- 8817 March, Chronic pain syndrome G89.4 [facility] [address] 83326 -0383 Feb, Acute non-recurrent frontal sinusitis J01.10 and Difficulty urinating R39.198 [place] [address] 38421- 1006 Jan, [facility] [address] 66167- 0510 Jan, Chronic pain syndrome G89.4 [facility] [address] 41497 -2345 Jan, Bronchitis J40 and OME (otitis media with effusion), bilateral H65.93 [place] [id number] [place] [address] 77998- 8668 Dec, Hematochezia K92.1 ; Periodic limb movement disorder G47.61 ; Chronic pain syndrome G89.4 ; Degenerative disc disease, cervical M50.30 ; Degenerative disc disease, lumbar M51.36 ; Other constipation K59.09 and SI joint arthritis M46.98 [place] [id number] [place] [address] 88339- 5913 Oct, Chronic pain syndrome G89.4 [place] [address] 88329- 3574 Oct, Chronic pain syndrome G89.4 ; Other constipation K59.09 ; Chronic prescription opiate use Z79.891 ; Degenerative disc disease, lumbar M51.36 ; Degenerative disc disease, cervical M50.30 ; Severe episode of recurrent major depressive disorder, without psychotic features F33.2 and Periodic limb movement disorder G47.61 [place] [id number] [place] [address] 30892- 0359 Sep, [place] [id number] [place] [address] 49277- 3421 Jul, Chronic prescription opiate use Z79.891 ; Chronic pain syndrome G89.4 ; Adverse effect of other opioids, initial encounter T40.2X5A and Other constipation K59.09 [place] [id number] [place] [address] 07049- 9956 Jun, [place] [id number] [place] [address] 16292- 3884 May, [address] 63402- 0623 Apr, Chronic pain syndrome G89.4 ; Degenerative disc disease, cervical M50.30 ; Degenerative disc disease, lumbar M51.36 ; Gastroesophageal reflux disease without esophagitis K21.9 ; Severe episode of recurrent major depressive disorder, without psychotic features F33.2 ; Screening, lipid Z13.220 ; Urinary hesitancy R39.11 and Chronic prescription opiate use Z79.891 [facility] [address] [facility] [id number] [place] [address]- 8854 Apr, IMMUNIZATIONS No Known Immunizations SOCIAL HISTORY Never Assessed REASON FOR VISIT Controlled Medication Refill PLAN OF CARE VITAL SIGNS MEDICATIONS [...]
--- OUTSIDE RECORDS SUMMARY | 2018-11-08 13:22 | XMS REPORT ---
Author Author SHERICE ANNAMARIE [facility] Address [address] [place] [address] Care Team Providers Care Cage Tender Name Role Phone CHAGO SMILEYY Unavailable PROBLEMS Type Condition ICD9-CM Code [id number] Code Onset Dates Condition Status SNOMED Code Problem Gastroesophageal reflux disease without esophagitis K21.9 Active 804581181 Problem Chronic pain syndrome G89.4 Active 422348747 Problem Degenerative disc disease, cervical M50.30 Active 26849100 Problem Chronic prescription opiate use Z79.891 Active 011835031 Problem Severe episode of recurrent major depressive disorder, without psychotic features F33.2 Active 45252166 Problem Degenerative disc disease, lumbar M51.36 Active 03517155 Problem Myoclonic jerking G25.3 Active 48128689 Problem Other chronic pain G89.29 Active 09827114 Problem Periodic limb movement disorder G47.61 Active 580673277 Problem Other constipation K59.09 Active 218625313413930 Problem Sacrococcygeal disorders, not elsewhere classified M53.3 Active 279571840 Problem Essential hypertension I10 Active 54301469 ALLERGIES No Information ENCOUNTERS Encounter Location Date Diagnosis [place] [id number] [place] [address] 27026- 8495 Jun, Degenerative disc disease, lumbar M51.36 [place] [id number] [place] [address] 88722- 5138 Jun, Chronic pain syndrome G89.4 ; Degenerative disc disease, lumbar M51.36 ; Essential hypertension I10 ; Myoclonic jerking G25.3 and Muscle spasm of back M62.830 [place] [id number] [place] [address] 51469- 5289 May, Acute non-recurrent frontal sinusitis J01.10 [place] [id number] [place] [address] 34102- 9235 May, Chronic pain syndrome G89.4 [facility] [address] [place] [address] 91355- 2780 Apr, Chronic pain syndrome G89.4 [facility] [id number] [place] [address] 70315- 1233 March, Chronic pain syndrome G89.4 [facility] [id number] [place] [address] 77576- 9729 Feb, Essential hypertension I10 ; Chronic pain syndrome G89.4 ; Periodic limb movement disorder G47.61 ; Myoclonic jerking G25.3 and Pain of left great toe M79.675 [facility] [id number] [place] [address] 74259- 7739 Feb, [facility] [id number] [place] [address] 94373- 4261 Feb, Chronic pain syndrome G89.4 [facility] [id number] [place] [address] 84164- 5674 Dec, Chronic pain syndrome G89.4 [facility] [id number] [place] [address] 93182- 3429 Nov, [facility] [id number] [place] [address] 17424- 6252 Nov, Neck pain M54.2 ; Left hand weakness R29.898 ; Degenerative disc disease, cervical M50.30 ; Chronic prescription opiate use Z79.891 and Myoclonic jerking G25.3 [facility] [address] [place] [address] 63768- 1079 Nov, Chronic pain syndrome G89.4 [facility] [id number] [place] [address] 69993- 6227 Sep, Chronic pain syndrome G89.4 [facility] [id number] [place] [address] 70639- 4329 Sep, Acute non-recurrent frontal sinusitis J01.10 [facility] [id number] [place] [address] 45662- 3676 Aug, Chronic pain syndrome G89.4 [facility] [id number] [place] [address] 40690- 3499 Jul, Other chronic pain G89.29 ; Sacrococcygeal disorders, not elsewhere classified M53.3 ; Essential hypertension I10 ; Other constipation K59.09 and Chronic pain syndrome G89.4 [facility] [address] 96237- 9407 Jun, Chronic pain syndrome G89.4 [place] [address] 02911- 2621 May, Chronic pain syndrome G89.4 [facility] [id number] [place] [address] 25130- 9186 Apr, Chest pain, unspecified type R07.9 [facility] [address] 05058- 5937 Apr, Chronic prescription opiate use Z79.891 ; Other constipation K59.09 ; Chest pain, unspecified type R07.9 ; Palpitations R00.2 and Essential hypertension I10 [facility] [id number] [place] [address] 49925- 7134 Apr, Chronic pain syndrome G89.4 [facility] [id number] [place] [address] 59283- 4379 March, Chronic pain syndrome G89.4 [facility] [id number] [place] [address] 44537 -7007 Feb, Acute non-recurrent frontal sinusitis J01.10 and Difficulty urinating R39.198 [facility] [id number] [place] [address] 94512- 5711 Jan, [facility] [address] 58648- 0603 Jan, Chronic pain syndrome G89.4 [facility] [address] [place] [address] 68221 -3706 Jan, Bronchitis J40 and OME (otitis media with effusion), bilateral H65.93 [facility] [id number] [place] [address] 04575- 6311 Dec, Hematochezia K92.1 ; Periodic limb movement disorder G47.61 ; Chronic pain syndrome G89.4 ; Degenerative disc disease, cervical M50.30 ; Degenerative disc disease, lumbar M51.36 ; Other constipation K59.09 and SI joint arthritis M46.98 [facility] [id number] [place] [address] 68231- 9949 Oct, Chronic pain syndrome G89.4 [facility] [id number] [place] [address] 48902- 1450 Oct, Chronic pain syndrome G89.4 ; Other constipation K59.09 ; Chronic prescription opiate use Z79.891 ; Degenerative disc disease, lumbar M51.36 ; Degenerative disc disease, cervical M50.30 ; Severe episode of recurrent major depressive disorder, without psychotic features F33.2 and Periodic limb movement disorder G47.61 [facility] [id number] [place] [address] 98883- 4186 Sep, [facility] [id number] [place] [address] 67918- 9219 Jul, Chronic prescription opiate use Z79.891 ; Chronic pain syndrome G89.4 ; Adverse effect of other opioids, initial encounter T40.2X5A and Other constipation K59.09 [facility] [id number] [place] [address] 08438- 7872 Jun, [facility] [id number] [place] [address] 86129- 8137 May, [facility] [id number] [place] [address] 51679- 2137 Apr, Chronic pain syndrome G89.4 ; Degenerative disc disease, cervical M50.30 ; Degenerative disc disease, lumbar M51.36 ; Gastroesophageal reflux disease without esophagitis K21.9 ; Severe episode of recurrent major depressive disorder, without psychotic features F33.2 ; Screening, lipid Z13.220 ; Urinary hesitancy R39.11 and Chronic prescription opiate use Z79.891 [facility] [address] [facility] [id number] [place] [address] 08 Apr, 2016 IMMUNIZATIONS No Known Immunizations [...]
--- OUTSIDE RECORDS SUMMARY | 2018-11-08 13:22 | XMS REPORT ---
Author Author SHERICE ANNAMARIEGIOVANA Moreno [facility] Address [address] [place] [address] Care Team Providers Care Wrister Name Role Phone CHAGO SMILEYY Unavailable PROBLEMS Type Condition ICD9-CM Code ESP51-MD Code Onset Dates Condition Status SNOMED Code Problem Gastroesophageal reflux disease without esophagitis K21.9 Active 999197980 Problem Chronic pain syndrome G89.4 Active 269875521 Problem Degenerative disc disease, cervical M50.30 Active 47005718 Problem Chronic prescription opiate use Z79.891 Active 449732661 Problem Severe episode of recurrent major depressive disorder, without psychotic features F33.2 Active 80454008 Problem Degenerative disc disease, lumbar M51.36 Active 72515137 Problem Myoclonic jerking G25.3 Active 59595185 Problem Other chronic pain G89.29 Active 17479507 Problem Periodic limb movement disorder G47.61 Active 675334459 Problem Other constipation K59.09 Active 680257573177892 Problem Sacrococcygeal disorders, not elsewhere classified M53.3 Active 537748938 Problem Essential hypertension I10 Active 62024402 ALLERGIES Substance Reaction Event Type Date Status Lyrica Unknown Drug Allergy Jun, Active tegaderm Unknown Non Drug Allergy Jun, Active ENCOUNTERS Encounter Location Date Diagnosis [facility] [id number] [place] [address] 49335 -9484 Jul, Puncture wound without foreign body, right foot, initial encounter S91.331A ; Local infection of the skin and subcutaneous tissue, unspecified L08.9 and Encounter for immunization Z23 [facility] [address] [place] [address] 67760- 1552 Jul, Degenerative disc disease, lumbar M51.36 [facility] [id number] [address] 9193 Jun, Degenerative disc disease, lumbar M51.36 [facility] [id number] [place] [address] 54362- 9232 Jun, Chronic pain syndrome G89.4 ; Degenerative disc disease, lumbar M51.36 ; Essential hypertension I10 ; Myoclonic jerking G25.3 and Muscle spasm of back M62.830 [facility] [id number] [place] [address] 54368- 4584 May, Acute non-recurrent frontal sinusitis J01.10 [place] [id number] [place] [address] 72761- 6414 May, Chronic pain syndrome G89.4 [place] [id number] [place] [address] 84752- 3070 Apr, Chronic pain syndrome G89.4 [place] [id number] [place] [address] 80646- 8024 March, Chronic pain syndrome G89.4 [place] [address] 31321- 2336 Feb, Essential hypertension I10 ; Chronic pain syndrome G89.4 ; Periodic limb movement disorder G47.61 ; Myoclonic jerking G25.3 and Pain of left great toe M79.675 [place] [id number] [place] [address] 55949- 7565 Feb, [place] [id number] [place] [address] 44792- 5734 Feb, Chronic pain syndrome G89.4 [facility] [id number] [place] [address] 64489- 5100 Dec, Chronic pain syndrome G89.4 [place] [id number] [place] [address] 52468- 8349 Nov, [place] [id number] [place] [address] 47567- 7196 Nov, Neck pain M54.2 ; Left hand weakness R29.898 ; Degenerative disc disease, cervical M50.30 ; Chronic prescription opiate use Z79.891 and Myoclonic jerking G25.3 [place] [address] 92020- 2121 Nov, Chronic pain syndrome G89.4 [place] [id number] [place] [address] 48007- 7162 Sep, Chronic pain syndrome G89.4 [place] [address] 16187- 7580 Sep, Acute non-recurrent frontal sinusitis J01.10 [place] [address] 76694- 0764 Aug, Chronic pain syndrome G89.4 [place] [address] 93757- 9393 Jul, Other chronic pain G89.29 ; Sacrococcygeal disorders, not elsewhere classified M53.3 ; Essential hypertension I10 ; Other constipation K59.09 and Chronic pain syndrome G89.4 [place] [id number] [place] [address] 62312- 6820 Jun, Chronic pain syndrome G89.4 [place] [id number] [place] [address] 12252- 6726 May, Chronic pain syndrome G89.4 [place] [address] 28589- 7758 Apr, Chest pain, unspecified type R07.9 [place] [id number] [place] [address] 44260- 6735 Apr, Chronic prescription opiate use Z79.891 ; Other constipation K59.09 ; Chest pain, unspecified type R07.9 ; Palpitations R00.2 and Essential hypertension I10 [place] [id number] [place] [address] 37677- 9528 Apr, Chronic pain syndrome G89.4 [place] [id number] [place] [address] 71842- 5863 March, Chronic pain syndrome G89.4 [facility] [address] 32727 -9236 Feb, Acute non-recurrent frontal sinusitis J01.10 and Difficulty urinating R39.[address] 54097- 6916 Jan, [place] [address] 71719- 6980 Jan, Chronic pain syndrome G89.4 [facility] [address] 59989 -5979 Jan, Bronchitis J40 and OME (otitis media with effusion), bilateral H65.[address] 09784- 9141 Dec, Hematochezia K92.1 ; Periodic limb movement disorder G47.61 ; Chronic pain syndrome G89.4 ; Degenerative disc disease, cervical M50.30 ; Degenerative disc disease, lumbar M51.36 ; Other constipation K59.09 and SI joint arthritis M46.98 [place] [id number] [place] [address] 59597- 6511 Oct, Chronic pain syndrome G89.4 [place] [address] 53054- 3321 Oct, Chronic pain syndrome G89.4 ; Other constipation K59.09 ; Chronic prescription opiate use Z79.891 ; Degenerative disc disease, lumbar M51.36 ; Degenerative disc disease, cervical M50.30 ; Severe episode of recurrent major depressive disorder, without psychotic features F33.2 and Periodic limb movement disorder G47.61 [place] [id number] [place] [address] 33955- 4567 Sep, [address] 67588- 1980 Jul, Chronic prescription opiate use Z79.891 ; Chronic pain syndrome G89.4 ; Adverse effect of other opioids, initial encounter T40.2X5A and Other constipation K59.09 [place] [id number] [address]- 8407 Jun, [place] [address] [address]- 9081 May, [place] [id number] [place] [address] 64793- 8802 Apr, Chronic pain syndrome G89.4 ; Degenerative disc disease, cervical M50.30 ; Degenerative disc disease, lumbar M51.36 ; Gastroesophageal reflux disease without esophagitis K21.9 ; Severe episode of recurrent major depressive disorder, without psychotic features F33.2 ; Screening, lipid Z13.220 ; Urinary hesitancy R39.11 and Chronic prescription opiate use Z79.[address] [place] [address] 57792- 4992 Apr, IMMUNIZATIONS No Known Immunizations SOCIAL HISTORY Never Assessed REASON FOR VISIT Pain management (chronic), Reports pain 7-8 on scale of 0-10, dull aching with occasional sharpness in low back and shoulders. CBrumbackRN PLAN OF CARE Activity Details Follow Up 3 Months Reason:Chronic pain VITAL SIGNS Height 69 in 2018-06-30 Weight 178.5 lbs 2018-06-30 Temperature 98.3 degrees Fahrenheit 2018-06-30 Heart Rate 84 bpm 2018-06-30 Respiratory Rate 18 2018-06-30 BMI 26.36 kg/m2 2018-06-30 Blood pressure systolic 120 mmHg 2018-06-30 Blood pressure diastolic 70 mmHg 2018-06-30 MEDICATIONS Medication Instructions Dosage Frequency Start Date End Date Duration Status Cymbalta 60 mg Orally Once a day 2 capsules 24h Active Meloxicam 7.5 mg TAKE 1 TABLET BY MOUTH ONCE DAILY Active Requip 1 MG Orally Once a day can increase to bid if needed 1 tablet 1 to 3 hours before bedtime Feb, Active Lumbar Back Brace/Support Pad Back stabilizer as directed Dec, lifetime Active Fluticasone Propionate 50 MCG/ACT Nasally Once a day 1 spray in each nostril 24h Feb, 30 day(s) Active Lisinopril 20 mg Orally Once a day 1 tablet 24h Apr, 90 days Active Tizanidine HCl 4 MG Orally Three times a day 1 tablet as needed 8h Dec 90 days Active Tramadol HCl 50 mg Orally 3 times a day 1 tablet as needed 8h Active Baclofen 20 MG Orally 3 times a day 1 1/2 tablets 8h Dec, 30 days Active Gabapentin 800 MG Orally Three times a day 1 capsule 8h 90 Active RESULTS No Results PROCEDURES No Known [...]
--- OUTSIDE RECORDS SUMMARY | 2018-11-08 13:22 | XMS REPORT ---
Author Author SHERICE ANNAMARIE [facility] Address [address] [place] [address] Care Team Providers Care Internal Medicine Nurse Practitioner Name Role Phone CHAGO SMILEYY Unavailable PROBLEMS Type Condition ICD9-CM Code OHD15-TJ Code Onset Dates Condition Status SNOMED Code Problem Gastroesophageal reflux disease without esophagitis K21.9 Active 188270591 Problem Chronic pain syndrome G89.4 Active 472879618 Problem Degenerative disc disease, cervical M50.30 Active 81740024 Problem Chronic prescription opiate use Z79.891 Active 460953574 Problem Severe episode of recurrent major depressive disorder, without psychotic features F33.2 Active 88043366 Problem Degenerative disc disease, lumbar M51.36 Active 15228481 Problem Myoclonic jerking G25.3 Active 29021019 Problem Other chronic pain G89.29 Active 81711972 Problem Periodic limb movement disorder G47.61 Active 290033466 Problem Other constipation K59.09 Active 937520500010910 Problem Sacrococcygeal disorders, not elsewhere classified M53.3 Active 343864889 Problem Essential hypertension I10 Active 50419422 ALLERGIES No Information ENCOUNTERS Encounter Location Date Diagnosis [place] [id number] [place] [address] 35485- 5256 Jun, Degenerative disc disease, lumbar M51.36 [place] [id number] [place] [address] 27490- 0432 Jun, Chronic pain syndrome G89.4 ; Degenerative disc disease, lumbar M51.36 ; Essential hypertension I10 ; Myoclonic jerking G25.3 and Muscle spasm of back M62.830 [place] [id number] [place] [address] 11083- 5600 May, Acute non-recurrent frontal sinusitis J01.10 [place] [id number] [place] [address] 45060- 6057 May, Chronic pain syndrome G89.4 [facility] [address] [place] [address] 19678- 6533 Apr, Chronic pain syndrome G89.4 [facility] [id number] [place] [address] 29170- 1568 March, Chronic pain syndrome G89.4 [facility] [id number] [place] [address] 13093- 3159 Feb, Essential hypertension I10 ; Chronic pain syndrome G89.4 ; Periodic limb movement disorder G47.61 ; Myoclonic jerking G25.3 and Pain of left great toe M79.675 [facility] [id number] [place] [address] 04971- 9749 Feb, [facility] [id number] [place] [address] 87762- 3160 Feb, Chronic pain syndrome G89.4 [facility] [id number] [place] [address] 13819- 7096 Dec, Chronic pain syndrome G89.4 [facility] [id number] [place] [address] 93834- 8666 Nov, [facility] [id number] [place] [address] 81635- 4318 Nov, Neck pain M54.2 ; Left hand weakness R29.898 ; Degenerative disc disease, cervical M50.30 ; Chronic prescription opiate use Z79.891 and Myoclonic jerking G25.3 [facility] [address] [place] [address] 92664- 4380 Nov, Chronic pain syndrome G89.4 [facility] [id number] [place] [address] 22882- 6201 Sep, Chronic pain syndrome G89.4 [facility] [id number] [place] [address] 36421- 5349 Sep, Acute non-recurrent frontal sinusitis J01.10 [facility] [id number] [place] [address] 31897- 1244 Aug, Chronic pain syndrome G89.4 [facility] [id number] [place] [address] 86838- 6719 Jul, Other chronic pain G89.29 ; Sacrococcygeal disorders, not elsewhere classified M53.3 ; Essential hypertension I10 ; Other constipation K59.09 and Chronic pain syndrome G89.4 [facility] [address] 76662- 5706 Jun, Chronic pain syndrome G89.4 [place] [address] 26730- 1239 May, Chronic pain syndrome G89.4 [facility] [id number] [place] [address] 55931- 2741 Apr, Chest pain, unspecified type R07.9 [facility] [address] 39768- 0122 Apr, Chronic prescription opiate use Z79.891 ; Other constipation K59.09 ; Chest pain, unspecified type R07.9 ; Palpitations R00.2 and Essential hypertension I10 [facility] [id number] [place] [address] 48988- 3593 Apr, Chronic pain syndrome G89.4 [facility] [id number] [place] [address] 48032- 2208 March, Chronic pain syndrome G89.4 [facility] [id number] [place] [address] 20677 -3072 Feb, Acute non-recurrent frontal sinusitis J01.10 and Difficulty urinating R39.198 [facility] [id number] [place] [address] 09719- 2141 Jan, [facility] [address] 79583- 2102 Jan, Chronic pain syndrome G89.4 [facility] [address] [place] [address] 65091 -2106 Jan, Bronchitis J40 and OME (otitis media with effusion), bilateral H65.93 [facility] [id number] [place] [address] 63610- 3344 Dec, Hematochezia K92.1 ; Periodic limb movement disorder G47.61 ; Chronic pain syndrome G89.4 ; Degenerative disc disease, cervical M50.30 ; Degenerative disc disease, lumbar M51.36 ; Other constipation K59.09 and SI joint arthritis M46.98 [facility] [id number] [place] [address] 65540- 8460 Oct, Chronic pain syndrome G89.4 [facility] [id number] [place] [address] 77487- 4060 Oct, Chronic pain syndrome G89.4 ; Other constipation K59.09 ; Chronic prescription opiate use Z79.891 ; Degenerative disc disease, lumbar M51.36 ; Degenerative disc disease, cervical M50.30 ; Severe episode of recurrent major depressive disorder, without psychotic features F33.2 and Periodic limb movement disorder G47.61 [facility] [id number] [place] [address] 37497- 4388 Sep, [facility] [id number] [place] [address] 10069- 0317 Jul, Chronic prescription opiate use Z79.891 ; Chronic pain syndrome G89.4 ; Adverse effect of other opioids, initial encounter T40.2X5A and Other constipation K59.09 [facility] [id number] [place] [address] 54011- 0066 Jun, [facility] [id number] [place] [address] 60868- 0601 May, [facility] [id number] [place] [address] 97784- 2494 Apr, Chronic pain syndrome G89.4 ; Degenerative disc disease, cervical M50.30 ; Degenerative disc disease, lumbar M51.36 ; Gastroesophageal reflux disease without esophagitis K21.9 ; Severe episode of recurrent major depressive disorder, without psychotic features F33.2 ; Screening, lipid Z13.220 ; Urinary hesitancy R39.11 and Chronic prescription opiate use Z79.891 [facility] [address] [facility] [id number] [place] [address]- [address] 08 Apr, 2016 IMMUNIZATIONS No Known Immunizations SOCIAL HISTORY Never Assessed REASON FOR VISIT Refill Request PLAN OF CARE VITAL SIGNS MEDICATIONS Medication Instructions Dosage Frequency Start Date End Date Duration Status Fluticasone Propionate 50 MCG/ACT Nasally Once a day 1 spray in each nostril 24h Feb, 30 day(s) Active RESULTS No Results PROCEDURES No Known [...]
--- OUTSIDE RECORDS SUMMARY | 2018-11-08 13:23 | XMS REPORT ---
Author Author SHERICE ANNAMARIE [facility] Address [address] [place] [address] Care Team Providers Care Systems Programmer Analyst Name Role Phone ANNAMARIE SMILEY Unavailable PROBLEMS Type Condition ICD9-CM Code UFL07-CI Code Onset Dates Condition Status SNOMED Code Problem Gastroesophageal reflux disease without esophagitis K21.9 Active 769232702 Problem Chronic pain syndrome G89.4 Active 503032144 Problem Degenerative disc disease, cervical M50.30 Active 96643254 Problem Chronic prescription opiate use Z79.891 Active 612924909 Problem Severe episode of recurrent major depressive disorder, without psychotic features F33.2 Active 07655097 Problem Degenerative disc disease, lumbar M51.36 Active 04591961 Problem Myoclonic jerking G25.3 Active 75531400 Problem Other chronic pain G89.29 Active 73605032 Problem Periodic limb movement disorder G47.61 Active 394989829 Problem Other constipation K59.09 Active 784828824279471 Problem Sacrococcygeal disorders, not elsewhere classified M53.3 Active 896168604 Problem Essential hypertension I10 Active 64143465 ALLERGIES Substance Reaction Event Type Date Status Lyrica Unknown Drug Allergy Feb, Active tegaderm Unknown Non Drug Allergy Feb, Active ENCOUNTERS Encounter Location Date Diagnosis [facility] [id number] [address] 78[address] Jun, [facility] [id number] [address] 7296 May, Acute non-recurrent frontal sinusitis J01.10 [facility] [id number] [address]- 2160 May, Chronic pain syndrome G89.4 [facility] [id number] [address]- 9706 Apr, Chronic pain syndrome G89.4 [facility] [id number] [place] [address] 37936- 3491 March, Chronic pain syndrome G89.4 [facility] [id number] [place] [address] 83883- 9336 Feb, Essential hypertension I10 ; Chronic pain syndrome G89.4 ; Periodic limb movement disorder G47.61 ; Myoclonic jerking G25.3 and Pain of left great toe M79.675 [facility] [id number] [place] [address] 32325- 1118 Feb, [facility] [id number] [place] [address] 23375- 7244 Feb, Chronic pain syndrome G89.4 [facility] [id number] [place] [address] 49813- 0502 Dec, Chronic pain syndrome G89.4 [facility] [id number] [place] [address] 79439- 2898 Nov, [facility] [id number] [place] [address] 64196- 5151 Nov, Neck pain M54.2 ; Left hand weakness R29.898 ; Degenerative disc disease, cervical M50.30 ; Chronic prescription opiate use Z79.891 and Myoclonic jerking G25.3 [facility] [id number] [place] [address] 14439- 2247 Nov, Chronic pain syndrome G89.4 [facility] [address] [place] [address] 37930- 5624 Sep, Chronic pain syndrome G89.4 [facility] [id number] [place] [address] 11163- 5916 Sep, Acute non-recurrent frontal sinusitis J01.10 [facility] [id number] [place] [address] 29396- 0950 Aug, Chronic pain syndrome G89.4 [place] [id number] [place] [address] 48192- 8980 Jul, Other chronic pain G89.29 ; Sacrococcygeal disorders, not elsewhere classified M53.3 ; Essential hypertension I10 ; Other constipation K59.09 and Chronic pain syndrome G89.4 [place] [id number] [place] [address] 94409- 7591 Jun, Chronic pain syndrome G89.4 [place] [address] 08627- 4114 May, Chronic pain syndrome G89.4 [place] [address] 45824- 9105 Apr, Chest pain, unspecified type R07.9 [place] [id number] [place] [address] 36232- 8495 Apr, Chronic prescription opiate use Z79.891 ; Other constipation K59.09 ; Chest pain, unspecified type R07.9 ; Palpitations R00.2 and Essential hypertension I10 [place] [id number] [place] [address] 74064- 5276 Apr, Chronic pain syndrome G89.4 [place] [id number] [place] [address] 08385- 8977 March, Chronic pain syndrome G89.[address] [facility] [id number] [place] [address] 32499 -2290 Feb, Acute non-recurrent frontal sinusitis J01.10 and Difficulty urinating R39.198 [place] [id number] [place] [address] 66696- 5938 Jan, [place] [address] 66043- 9980 Jan, Chronic pain syndrome G89.[address] [facility] [id number] [place] [address] 20662 -1370 Jan, Bronchitis J40 and OME (otitis media with effusion), bilateral H65.93 [place] [id number] [place] [address] 25602- 0361 Dec, Hematochezia K92.1 ; Periodic limb movement disorder G47.61 ; Chronic pain syndrome G89.4 ; Degenerative disc disease, cervical M50.30 ; Degenerative disc disease, lumbar M51.36 ; Other constipation K59.09 and SI joint arthritis M46.98 [place] [id number] [place] [address] 16988- 5729 Oct, Chronic pain syndrome G89.[address] 75667- 5452 Oct, Chronic pain syndrome G89.4 ; Other constipation K59.09 ; Chronic prescription opiate use Z79.891 ; Degenerative disc disease, lumbar M51.36 ; Degenerative disc disease, cervical M50.30 ; Severe episode of recurrent major depressive disorder, without psychotic features F33.2 and Periodic limb movement disorder G47.61 [place] [id number] [place] [address] 55058- 7266 Sep, [place] [address] 97857- 9861 Jul, Chronic prescription opiate use Z79.891 ; Chronic pain syndrome G89.4 ; Adverse effect of other opioids, initial encounter T40.2X5A and Other constipation K59.09 [place] [id number] [place] [address] 68026- 8780 Jun, [place] [address] 30334- 7019 May, [address] 02674- 7075 Apr, Chronic pain syndrome G89.4 ; Degenerative disc disease, cervical M50.30 ; Degenerative disc disease, lumbar M51.36 ; Gastroesophageal reflux disease without esophagitis K21.9 ; Severe episode of recurrent major depressive disorder, without psychotic features F33.2 ; Screening, lipid Z13.220 ; Urinary hesitancy R39.11 and Chronic prescription opiate use Z79.891 [facility] [address] [facility] [id number] [place] [address]- 4780 Apr, IMMUNIZATIONS No Known Immunizations SOCIAL HISTORY Never Assessed REASON FOR VISIT Pain management (chronic)-tmcdonaldMA, Has had pain on left foot- big toe shoots pain if pressure is put on it PLAN OF CARE Activity Details Follow Up 3 Months Reason:Chronic pain VITAL SIGNS Height 69 in 2018-03-17 Weight 178 lbs 2018-03-17 Temperature 97.8 degrees Fahrenheit 2018-03-17 BMI 26.28 kg/m2 2018-03-17 Blood pressure systolic 137 mmHg 2018-03-17 Blood pressure diastolic 82 mmHg 2018-03-17 MEDICATIONS Medication Instructions Dosage Frequency Start Date End Date Duration Status Witherbee Oil 100 % Not-Taking Lumbar Back Brace/Support Pad Back stabilizer as directed Dec, lifetime Active Cymbalta 60 mg Orally Once a day 2 capsules 24h Active Baclofen 20 MG Orally Three times a day 1 1/2 tablet with food or milk 8h Active Gabapentin 600 MG Orally Three times a day 1 capsule 8h Active Fluticasone Propionate 50 MCG/ACT Nasally Once a day 1 spray in each nostril 24h Feb, 30 day(s) Not-Taking Requip 1 MG Orally Once a day can increase to bid if needed 1 tablet 1 to 3 hours before bedtime Feb, Active Ex-Lax 15 MG Orally Once a day 1 tablet at bedtime as needed 24h Not-Taking Tizanidine HCl 4 MG Orally every 6 hrs 1 tablet as needed 6h Active Meloxicam 7.5 mg TAKE 1 TABLET BY MOUTH ONCE DAILY Active Lisinopril 20 mg Orally Once a day 1 tablet 24h Apr, 30 days Active Tramadol HCl 50 mg Orally 3 times a day 1 tablet as needed 8h 28 days Active RESULTS Name Result Date Reference Range Xray : Toe(s), Left 2 views (IN HOUSE) 2018-03-17 PROCEDURES Procedure Date Ordered Result Body Site X-RAY EXAM OF TOE(S) March 17, 2018 INSTRUCTIONS MEDICATIONS ADMINISTERED No Known Medications [...]
--- OUTSIDE RECORDS SUMMARY | 2018-11-08 13:23 | XMS REPORT ---
Author Author SHERICE ANNAMARIE [facility] Address [address] [place] [address] Care Team Providers Care Lip Cutter And Scorer Name Role Phone SHERICECHAGO MILLERY Unavailable PROBLEMS Type Condition ICD9-CM Code AFH10-PR Code Onset Dates Condition Status SNOMED Code Problem Gastroesophageal reflux disease without esophagitis K21.9 Active 330733079 Problem Chronic pain syndrome G89.4 Active 832152371 Problem Degenerative disc disease, cervical M50.30 Active 67403204 Problem Chronic prescription opiate use Z79.891 Active 980425836 Problem Severe episode of recurrent major depressive disorder, without psychotic features F33.2 Active 38694352 Problem Degenerative disc disease, lumbar M51.36 Active 54041595 Problem Myoclonic jerking G25.3 Active 21129422 Problem Other chronic pain G89.29 Active 35741272 Problem Periodic limb movement disorder G47.61 Active 250563808 Problem Other constipation K59.09 Active 968134179918177 Problem Sacrococcygeal disorders, not elsewhere classified M53.3 Active 697568141 Problem Essential hypertension I10 Active 17867517 ALLERGIES No Information ENCOUNTERS Encounter Location Date Diagnosis [place] [address] [place] [address] 33113- 1303 Jun, [place] [id number] [place] [address] 71639- 0710 May, Acute non-recurrent frontal sinusitis J01.10 [place] [id number] [place] [address] 26669- 6868 17 May, 2018 Chronic pain syndrome G89.4 [facility] [id number] [place] [address] 79509- 5096 13 Apr, 2018 Chronic pain syndrome G89.4 [place] [id number] [place] [address] 23371- 8722 March, Chronic pain syndrome G89.4 [facility] [id number] [place] [address] 78557- 0318 Feb, Essential hypertension I10 ; Chronic pain syndrome G89.4 ; Periodic limb movement disorder G47.61 ; Myoclonic jerking G25.3 and Pain of left great toe M79.675 [facility] [id number] [place] [address] 22042- 5300 Feb, [facility] [address] 55696- 1926 Feb, Chronic pain syndrome G89.4 [place] [address] 70502- 6644 Dec, Chronic pain syndrome G89.4 [place] [id number] [place] [address] 57098- 6574 Nov, [place] [address] 08408- 4469 Nov, Neck pain M54.2 ; Left hand weakness R29.898 ; Degenerative disc disease, cervical M50.30 ; Chronic prescription opiate use Z79.891 and Myoclonic jerking G25.3 [place] [id number] [place] [address] 21248- 6019 Nov, Chronic pain syndrome G89.4 [place] [id number] [place] [address] 14760- 6734 Sep, Chronic pain syndrome G89.4 [facility] [id number] [place] [address] 00403- 3018 Sep, Acute non-recurrent frontal sinusitis J01.10 [facility] [id number] [place] [address] 49846- 9764 Aug, Chronic pain syndrome G89.4 [place] [id number] [place] [address] 92836- 0784 Jul, Other chronic pain G89.29 ; Sacrococcygeal disorders, not elsewhere classified M53.3 ; Essential hypertension I10 ; Other constipation K59.09 and Chronic pain syndrome G89.4 [facility] [id number] [place] [address] 66284- 1782 Jun, Chronic pain syndrome G89.4 [place] [address] 16474- 5203 May, Chronic pain syndrome G89.4 [facility] [address] 12172- 0907 Apr, Chest pain, unspecified type R07.9 [place] [address] 02275- 0105 Apr, Chronic prescription opiate use Z79.891 ; Other constipation K59.09 ; Chest pain, unspecified type R07.9 ; Palpitations R00.2 and Essential hypertension I10 [place] [address] 94025- 1764 Apr, Chronic pain syndrome G89.4 [place] [address] 74845- 7533 March, Chronic pain syndrome G89.4 [facility] [address] 61019 -7770 Feb, Acute non-recurrent frontal sinusitis J01.10 and Difficulty urinating R39.198 [facility] [id number] [place] [address] 41360- 9233 Jan, [place] [address] 73446- 1392 Jan, Chronic pain syndrome G89.4 [facility] [id number] [place] [address] 36949 -7544 Jan, Bronchitis J40 and OME (otitis media with effusion), bilateral H65.93 [facility] [address] [place] [address]- 9602 Dec, Hematochezia K92.1 ; Periodic limb movement disorder G47.61 ; Chronic pain syndrome G89.4 ; Degenerative disc disease, cervical M50.30 ; Degenerative disc disease, lumbar M51.36 ; Other constipation K59.09 and SI joint arthritis M46.98 [place] [id number] [place] [address] 12848- 0030 Oct, Chronic pain syndrome G89.4 [place] [id number] [place] [address] 36295- 8004 Oct, Chronic pain syndrome G89.4 ; Other constipation K59.09 ; Chronic prescription opiate use Z79.891 ; Degenerative disc disease, lumbar M51.36 ; Degenerative disc disease, cervical M50.30 ; Severe episode of recurrent major depressive disorder, without psychotic features F33.2 and Periodic limb movement disorder G47.61 [place] [id number] [place] [address] 39184- 2390 Sep, [place] [id number] [place] [address] 35033- 0558 Jul, Chronic prescription opiate use Z79.891 ; Chronic pain syndrome G89.4 ; Adverse effect of other opioids, initial encounter T40.2X5A and Other constipation K59.09 [place] [id number] [place] [address] 90342- 1166 Jun, [place] [id number] [place] [address] 33712- 0317 May, [place] [id number] [place] [address] 67202- 0850 Apr, Chronic pain syndrome G89.4 ; Degenerative disc disease, cervical M50.30 ; Degenerative disc disease, lumbar M51.36 ; Gastroesophageal reflux disease without esophagitis K21.9 ; Severe episode of recurrent major depressive disorder, without psychotic features F33.2 ; Screening, lipid Z13.220 ; Urinary hesitancy R39.11 and Chronic prescription opiate use Z79.891 [place] [address] [facility] [id number] [address]- 7487 Apr, IMMUNIZATIONS No Known Immunizations SOCIAL HISTORY [...]
--- OUTSIDE RECORDS SUMMARY | 2018-11-08 13:23 | XMS REPORT ---
Author Author SHERICE ANNAMARIE [facility] Address [address] [place] [address] Care Team Providers Care Electrical Continuity Inspector Name Role Phone ANNAMARIE SMILEY Unavailable PROBLEMS Type Condition ICD9-CM Code ZQR78-FV Code Onset Dates Condition Status SNOMED Code Problem Gastroesophageal reflux disease without esophagitis K21.9 Active 973807138 Problem Chronic pain syndrome G89.4 Active 017846912 Problem Degenerative disc disease, cervical M50.30 Active 65836709 Problem Chronic prescription opiate use Z79.891 Active 829104492 Problem Severe episode of recurrent major depressive disorder, without psychotic features F33.2 Active 95305962 Problem Degenerative disc disease, lumbar M51.36 Active 90102368 Problem Myoclonic jerking G25.3 Active 08920804 Problem Other chronic pain G89.29 Active 88814226 Problem Periodic limb movement disorder G47.61 Active 030981601 Problem Other constipation K59.09 Active 105956809029777 Problem Sacrococcygeal disorders, not elsewhere classified M53.3 Active 738700530 Problem Essential hypertension I10 Active 86032569 ALLERGIES No Information ENCOUNTERS Encounter Location Date Diagnosis [place] [address] [address] Jun, [place] [address] [place] [id number] [place] [address] 96735- 2957 Apr, Chronic pain syndrome G89.4 [place] [address] [place] [address] 68090- 6040 March, Chronic pain syndrome G89.4 [place] [address] [place] [id number] [place] [address] 54628- 0262 Feb, Essential hypertension I10 ; Chronic pain syndrome G89.4 ; Periodic limb movement disorder G47.61 ; Myoclonic jerking G25.3 and Pain of left great toe M79.675 [facility] [address] [place] [id number] [place] [address] 42763- 1965 Feb, [facility] [address] [place] [id number] [place] [address] 07932- 3970 Feb, Chronic pain syndrome G89.4 [facility] [address] [place] [id number] [place] [address] 69462- 6261 Dec, Chronic pain syndrome G89.4 [facility] [address] [place] [id number] [place] [address] 66809- 7696 Nov, [facility] [address] 05895- 3523 Nov, Neck pain M54.2 ; Left hand weakness R29.898 ; Degenerative disc disease, cervical M50.30 ; Chronic prescription opiate use Z79.891 and Myoclonic jerking G25.3 [facility] [address] [place] [id number] [place] [address] 35597- 8733 Nov, Chronic pain syndrome G89.4 [facility] [address] [place] [id number] [place] [address] 22177- 4961 Sep, Chronic pain syndrome G89.4 [facility] [address] [place] [id number] [place] [address] 82438- 4818 Sep, Acute non-recurrent frontal sinusitis J01.10 [facility] [address] [place] [id number] [place] [address] 28618- 0744 Aug, Chronic pain syndrome G89.4 [facility] [address] [place] [id number] [place] [address] 37504- 4467 Jul, Other chronic pain G89.29 ; Sacrococcygeal disorders, not elsewhere classified M53.3 ; Essential hypertension I10 ; Other constipation K59.09 and Chronic pain syndrome G89.4 [facility] [address] [place] [id number] [place] [address] 32803- 2494 Jun, Chronic pain syndrome G89.4 [place] [address] 90052- 7253 May, Chronic pain syndrome G89.4 [place] [address] [place] [address]- 3681 Apr, Chest pain, unspecified type R07.9 [place] [address] 36699- 6843 Apr, Chronic prescription opiate use Z79.891 ; Other constipation K59.09 ; Chest pain, unspecified type R07.9 ; Palpitations R00.2 and Essential hypertension I10 [place] [address] 25041- 7331 Apr, Chronic pain syndrome G89.4 [place] [address] 96853- 6501 March, Chronic pain syndrome G89.4 [facility] [address] 86941 -3349 Feb, Acute non-recurrent frontal sinusitis J01.10 and Difficulty urinating R39.198 [place] [address] 20432- 9129 Jan, [place] [address] 96311- 6877 Jan, Chronic pain syndrome G89.4 [facility] [address] 12418 -1730 Jan, Bronchitis J40 and OME (otitis media with effusion), bilateral H65.[address] 28268- 3624 Dec, Hematochezia K92.1 ; Periodic limb movement disorder G47.61 ; Chronic pain syndrome G89.4 ; Degenerative disc disease, cervical M50.30 ; Degenerative disc disease, lumbar M51.36 ; Other constipation K59.09 and SI joint arthritis M46.98 [place] [address] [place] [id number] [place] [address] 66041- 1663 Oct, Chronic pain syndrome G89.4 [place] [address] [place] [id number] [place] [address] 00717- 6351 Oct, Chronic pain syndrome G89.4 ; Other constipation K59.09 ; Chronic prescription opiate use Z79.891 ; Degenerative disc disease, lumbar M51.36 ; Degenerative disc disease, cervical M50.30 ; Severe episode of recurrent major depressive disorder, without psychotic features F33.2 and Periodic limb movement disorder G47.61 [place] [address] [place] [id number] [place] [address] 53034- 7905 Sep, [place] [address] [place] [id number] [place] [address] 81739- 9570 Jul, Chronic prescription opiate use Z79.891 ; Chronic pain syndrome G89.4 ; Adverse effect of other opioids, initial encounter T40.2X5A and Other constipation K59.09 [place] [address] [place] [id number] [place] [address] 12321- 4211 Jun, [address] 13717- 2057 May, [place] [id number] [place] [address] 70158- 2611 Apr, Chronic pain syndrome G89.4 ; Degenerative disc disease, cervical M50.30 ; Degenerative disc disease, lumbar M51.36 ; Gastroesophageal reflux disease without esophagitis K21.9 ; Severe episode of recurrent major depressive disorder, without psychotic features F33.2 ; Screening, lipid Z13.220 ; Urinary hesitancy R39.11 and Chronic prescription opiate use Z79.891 [place] [id number] [place] [address] 83528- 5924 Apr, IMMUNIZATIONS No Known Immunizations SOCIAL HISTORY [...]
--- OUTSIDE RECORDS SUMMARY | 2018-11-08 13:23 | XMS REPORT ---
Author Author SHERICE ANNAMARIE [facility] Address [address] [place] [address] Care Team Providers Care Belt Lacer Name Role Phone SHERICECHAGO MILLERY Unavailable PROBLEMS Type Condition ICD9-CM Code LQU85-SW Code Onset Dates Condition Status SNOMED Code Problem Gastroesophageal reflux disease without esophagitis K21.9 Active 472425079 Problem Chronic pain syndrome G89.4 Active 721515216 Problem Degenerative disc disease, cervical M50.30 Active 96471394 Problem Chronic prescription opiate use Z79.891 Active 101585558 Problem Severe episode of recurrent major depressive disorder, without psychotic features F33.2 Active 58262911 Problem Degenerative disc disease, lumbar M51.36 Active 90931514 Problem Myoclonic jerking G25.3 Active 77595146 Problem Other chronic pain G89.29 Active 37509178 Problem Periodic limb movement disorder G47.61 Active 918037429 Problem Other constipation K59.09 Active 722329592553854 Problem Sacrococcygeal disorders, not elsewhere classified M53.3 Active 569882859 Problem Essential hypertension I10 Active 65260282 ALLERGIES No Information ENCOUNTERS Encounter Location Date Diagnosis [place] [address] [place] [address] 91623- 7933 Apr, Chronic pain syndrome G89.4 [facility] [address] [place] [id number] [place] [address] 17429- 0843 March, Chronic pain syndrome G89.4 [facility] [address] [place] [id number] [place] [address] 23303- 6972 Feb, Essential hypertension I10 ; Chronic pain syndrome G89.4 ; Periodic limb movement disorder G47.61 ; Myoclonic jerking G25.3 and Pain of left great toe M79.675 [facility] [address] [place] [id number] [place] [address] 77029- 0334 Feb, [facility] [address] [place] [id number] [place] [address] 21780- 5120 Feb, Chronic pain syndrome G89.4 [facility] [address] [place] [id number] [place] [address] 49900- 5605 Dec, Chronic pain syndrome G89.4 [place] [address] [place] [id number] [place] [address] 57862- 6022 Nov, [facility] [address] 11848- 5997 Nov, Neck pain M54.2 ; Left hand weakness R29.898 ; Degenerative disc disease, cervical M50.30 ; Chronic prescription opiate use Z79.891 and Myoclonic jerking G25.3 [place] [address] [place] [id number] [place] [address] 58911- 3585 Nov, Chronic pain syndrome G89.4 [place] [address] [place] [id number] [place] [address] 76645- 9440 Sep, Chronic pain syndrome G89.4 [place] [address] [place] [id number] [place] [address] 76469- 9431 Sep, Acute non-recurrent frontal sinusitis J01.10 [place] [address] [place] [id number] [place] [address] 80825- 6963 Aug, Chronic pain syndrome G89.4 [place] [address] [place] [id number] [place] [address] 28439- 6979 Jul, Other chronic pain G89.29 ; Sacrococcygeal disorders, not elsewhere classified M53.3 ; Essential hypertension I10 ; Other constipation K59.09 and Chronic pain syndrome G89.4 [facility] [address] [place] [id number] [place] [address] 95396- 2056 Jun, Chronic pain syndrome G89.4 [place] [address] [place] [id number] [place] [address] 72698- 9142 May, Chronic pain syndrome G89.4 [place] [address] [place] [id number] [place] [address] 20304- 0742 Apr, Chest pain, unspecified type R07.9 [place] [address] 35481- 9664 Apr, Chronic prescription opiate use Z79.891 ; Other constipation K59.09 ; Chest pain, unspecified type R07.9 ; Palpitations R00.2 and Essential hypertension I10 [place] [address] 73515- 6898 Apr, Chronic pain syndrome G89.4 [place] [address] 16100- 5537 March, Chronic pain syndrome G89.4 [facility] [address] 54348 -2142 Feb, Acute non-recurrent frontal sinusitis J01.10 and Difficulty urinating R39.198 [place] [address] [place] [id number] [place] [address] 03259- 2669 Jan, [place] [address] 24233- 3950 Jan, Chronic pain syndrome G89.4 [facility] [address] 57629 -9919 Jan, Bronchitis J40 and OME (otitis media with effusion), bilateral H65.93 [place] [address] [place] [id number] [place] [address] 94568- 6380 Dec, Hematochezia K92.1 ; Periodic limb movement disorder G47.61 ; Chronic pain syndrome G89.4 ; Degenerative disc disease, cervical M50.30 ; Degenerative disc disease, lumbar M51.36 ; Other constipation K59.09 and SI joint arthritis M46.98 [place] [address] [place] [id number] [place] [address] 56598- 6296 Oct, Chronic pain syndrome G89.4 [place] [address] [place] [address] 67287- 5550 Oct, Chronic pain syndrome G89.4 ; Other constipation K59.09 ; Chronic prescription opiate use Z79.891 ; Degenerative disc disease, lumbar M51.36 ; Degenerative disc disease, cervical M50.30 ; Severe episode of recurrent major depressive disorder, without psychotic features F33.2 and Periodic limb movement disorder G47.61 [place] [address] [place] [id number] [place] [address] 96189- 0699 Sep, [place] [address] 12651- 0750 Jul, Chronic prescription opiate use Z79.891 ; Chronic pain syndrome G89.4 ; Adverse effect of other opioids, initial encounter T40.2X5A and Other constipation K59.09 [place] [address] [place] [id number] [place] [address] 13548- 9720 Jun, [place] [address] [place] [id number] [place] [address] 58600- 2887 May, [place] [address] 47464- 7987 Apr, Chronic pain syndrome G89.4 ; Degenerative disc disease, cervical M50.30 ; Degenerative disc disease, lumbar M51.36 ; Gastroesophageal reflux disease without esophagitis K21.9 ; Severe episode of recurrent major depressive disorder, without psychotic features F33.2 ; Screening, lipid Z13.220 ; Urinary hesitancy R39.11 and Chronic prescription opiate use Z79.891 [place] [address] [place] [id number] [place] [address] 14259- 9550 Apr, IMMUNIZATIONS No Known Immunizations SOCIAL HISTORY [...]
--- OUTSIDE RECORDS SUMMARY | 2018-11-08 13:23 | XMS REPORT ---
Author Author SHERICE ANNAMARIE [facility] Address [address] [place] [address] Care Team Providers Care Model And Mold Maker Plaster Name Role Phone SHERICECHAGO MILLERY Unavailable PROBLEMS Type Condition ICD9-CM Code DTH81-UT Code Onset Dates Condition Status SNOMED Code Problem Gastroesophageal reflux disease without esophagitis K21.9 Active 124197636 Problem Chronic pain syndrome G89.4 Active 672917745 Problem Degenerative disc disease, cervical M50.30 Active 28828236 Problem Chronic prescription opiate use Z79.891 Active 454741285 Problem Severe episode of recurrent major depressive disorder, without psychotic features F33.2 Active 14999876 Problem Degenerative disc disease, lumbar M51.36 Active 80721047 Problem Myoclonic jerking G25.3 Active 15427395 Problem Other chronic pain G89.29 Active 04920213 Problem Periodic limb movement disorder G47.61 Active 503145429 Problem Other constipation K59.09 Active 362310913581591 Problem Sacrococcygeal disorders, not elsewhere classified M53.3 Active 142790752 Problem Essential hypertension I10 Active 81050137 ALLERGIES No Information ENCOUNTERS Encounter Location Date Diagnosis [place] [address] [place] [address] 37693- 4468 Jun, [place] [address] [place] [id number] [place] [address] 20037- 6231 May, Acute non-recurrent frontal sinusitis J01.10 [place] [address] [place] [id number] [place] [address] 88284- 1434 17 May, 2018 Chronic pain syndrome G89.4 [facility] [address] [place] [id number] [place] [address] 08621- 7409 13 Apr, 2018 Chronic pain syndrome G89.4 [place] [address] [place] [id number] [place] [address] 67147- 9280 March, Chronic pain syndrome G89.4 [facility] [address] [place] [id number] [place] [address] 00640- 4180 Feb, Essential hypertension I10 ; Chronic pain syndrome G89.4 ; Periodic limb movement disorder G47.61 ; Myoclonic jerking G25.3 and Pain of left great toe M79.675 [facility] [address] [place] [id number] [place] [address] 07537- 8357 Feb, [facility] [address] 57564- 7287 Feb, Chronic pain syndrome G89.4 [place] [address] 86031- 5683 Dec, Chronic pain syndrome G89.4 [place] [address] [place] [id number] [place] [address] 02330- 8723 Nov, [place] [address] 94526- 7202 Nov, Neck pain M54.2 ; Left hand weakness R29.898 ; Degenerative disc disease, cervical M50.30 ; Chronic prescription opiate use Z79.891 and Myoclonic jerking G25.3 [place] [address] [place] [id number] [place] [address] 31954- 0017 Nov, Chronic pain syndrome G89.4 [place] [address] [place] [id number] [place] [address] 78276- 7648 Sep, Chronic pain syndrome G89.4 [facility] [address] [place] [id number] [place] [address] 60076- 4086 Sep, Acute non-recurrent frontal sinusitis J01.10 [facility] [address] [place] [id number] [place] [address] 79872- 9969 Aug, Chronic pain syndrome G89.4 [place] [address] [place] [id number] [place] [address] 26583- 4357 Jul, Other chronic pain G89.29 ; Sacrococcygeal disorders, not elsewhere classified M53.3 ; Essential hypertension I10 ; Other constipation K59.09 and Chronic pain syndrome G89.4 [facility] [address] [place] [id number] [place] [address] 36879- 1186 Jun, Chronic pain syndrome G89.4 [place] [address] 55377- 6412 May, Chronic pain syndrome G89.4 [facility] [address] 72739- 4702 Apr, Chest pain, unspecified type R07.9 [place] [address] 09726- 6811 Apr, Chronic prescription opiate use Z79.891 ; Other constipation K59.09 ; Chest pain, unspecified type R07.9 ; Palpitations R00.2 and Essential hypertension I10 [place] [address] 25059- 8139 Apr, Chronic pain syndrome G89.4 [place] [address] 80555- 3657 March, Chronic pain syndrome G89.4 [facility] [address] 36125 -0432 Feb, Acute non-recurrent frontal sinusitis J01.10 and Difficulty urinating R39.198 [facility] [address] [place] [id number] [place] [address] 83993- 0056 Jan, [place] [address] 54370- 6633 Jan, Chronic pain syndrome G89.4 [facility] [address] [place] [id number] [place] [address] 76144 -1612 Jan, Bronchitis J40 and OME (otitis media with effusion), bilateral H65.93 [facility] [address] [place] [address]- 1613 Dec, Hematochezia K92.1 ; Periodic limb movement disorder G47.61 ; Chronic pain syndrome G89.4 ; Degenerative disc disease, cervical M50.30 ; Degenerative disc disease, lumbar M51.36 ; Other constipation K59.09 and SI joint arthritis M46.98 [place] [address] [place] [id number] [place] [address] 75488- 1673 Oct, Chronic pain syndrome G89.4 [place] [address] [place] [id number] [place] [address] 85368- 4858 Oct, Chronic pain syndrome G89.4 ; Other constipation K59.09 ; Chronic prescription opiate use Z79.891 ; Degenerative disc disease, lumbar M51.36 ; Degenerative disc disease, cervical M50.30 ; Severe episode of recurrent major depressive disorder, without psychotic features F33.2 and Periodic limb movement disorder G47.61 [place] [address] [place] [id number] [place] [address] 25977- 0430 Sep, [place] [address] [place] [id number] [place] [address] 82300- 5116 Jul, Chronic prescription opiate use Z79.891 ; Chronic pain syndrome G89.4 ; Adverse effect of other opioids, initial encounter T40.2X5A and Other constipation K59.09 [place] [address] [place] [id number] [place] [address] 56980- 7589 Jun, [place] [address] [place] [id number] [place] [address] 78493- 1327 May, [place] [address] [place] [id number] [place] [address] 23751- 4942 Apr, Chronic pain syndrome G89.4 ; Degenerative disc disease, cervical M50.30 ; Degenerative disc disease, lumbar M51.36 ; Gastroesophageal reflux disease without esophagitis K21.9 ; Severe episode of recurrent major depressive disorder, without psychotic features F33.2 ; Screening, lipid Z13.220 ; Urinary hesitancy R39.11 and Chronic prescription opiate use Z79.891 [place] [address] [facility] [id number] [place] [address]- 5787 Apr, IMMUNIZATIONS No Known Immunizations SOCIAL HISTORY Never Assessed REASON FOR VISIT Medication List update- Specialist PLAN OF CARE VITAL SIGNS MEDICATIONS Medication Instructions Dosage Frequency Start Date End Date Duration Status Requip 1 MG Orally Once a day can increase to bid if needed 1 tablet 1 to 3 hours before bedtime Feb, 30 day(s) Active RESULTS No Results [...]
--- OUTSIDE RECORDS SUMMARY | 2018-11-08 13:24 | XMS REPORT ---
Author Author SHERICE ANNAAMRIE [facility] Address [address] [place] [address] Care Team Providers Care Copper Plater Name Role Phone SHERICECHAGO MILLERY Unavailable PROBLEMS Type Condition ICD9-CM Code [id number] Code Onset Dates Condition Status SNOMED Code Problem Gastroesophageal reflux disease without esophagitis K21.9 Active 611027240 Problem Chronic pain syndrome G89.4 Active 151122422 Problem Degenerative disc disease, cervical M50.30 Active 39665861 Problem Chronic prescription opiate use Z79.891 Active 580474928 Problem Severe episode of recurrent major depressive disorder, without psychotic features F33.2 Active 04533803 Problem Degenerative disc disease, lumbar M51.36 Active 62484948 Problem Myoclonic jerking G25.3 Active 84149590 Problem Other chronic pain G89.29 Active 94399814 Problem Periodic limb movement disorder G47.61 Active 944347413 Problem Other constipation K59.09 Active 846782622694010 Problem Sacrococcygeal disorders, not elsewhere classified M53.3 Active 994029101 Problem Essential hypertension I10 Active 05051063 ALLERGIES No Information ENCOUNTERS Encounter Location Date Diagnosis [place] [address] [place] [address]326- 1250 Apr, Chronic pain syndrome G89.4 [facility] [place] [address] [place] [id number] [place] [address] 33852- 6949 March, Chronic pain syndrome G89.4 [facility] [place] [id number] [place] [address] 64611- 2540 Feb, Essential hypertension I10 ; Chronic pain syndrome G89.4 ; Periodic limb movement disorder G47.61 ; Myoclonic jerking G25.3 and Pain of left great toe M79.675 [facility] [place] [id number] [place] [address] 30963- 1094 Feb, [facility] [place] [address] [id number] [place] [address] 94761- 4330 Feb, Chronic pain syndrome G89.4 [facility] [place] [address] [place] [address] [id number] [place] [address] 06587- 7582 Dec, Chronic pain syndrome G89.4 [place] [address] [place] [id number] [place] [address] 05104- 6988 Nov, [facility] [place] [address] 94[address]- 8901 Nov, Neck pain M54.2 ; Left hand weakness R29.898 ; Degenerative disc disease, cervical M50.30 ; Chronic prescription opiate use Z79.891 and Myoclonic jerking G25.3 [place] [address] [place] [id number] [place] [address] 10095- 9792 Nov, Chronic pain syndrome G89.4 [place] [address] [place] [id number] [place] [address] 01582- 5720 Sep, Chronic pain syndrome G89.4 [place] [address] [place] [id number] [place] [address] 87449- 4307 Sep, Acute non-recurrent frontal sinusitis J01.10 [place] [address] [place] [id number] [place] [address] 44244- 3992 Aug, Chronic pain syndrome G89.4 [place] [address] [place] [id number] [place] [address] 87882- 7572 Jul, Other chronic pain G89.29 ; Sacrococcygeal disorders, not elsewhere classified M53.3 ; Essential hypertension I10 ; Other constipation K59.09 and Chronic pain syndrome G89.4 [facility] [place] [address] [id number] [place] [address] 20887- 8908 Jun, Chronic pain syndrome G89.4 [place] [address] [place] [id number] [place] [address] 22108- 0898 May, Chronic pain syndrome G89.4 [place] [address] [place] [id number] [place] [address] 74139- 5598 Apr, Chest pain, unspecified type R07.9 [place] [address] 86135- 4908 Apr, Chronic prescription opiate use Z79.891 ; Other constipation K59.09 ; Chest pain, unspecified type R07.9 ; Palpitations R00.2 and Essential hypertension I10 [place] [address] 21609- 7047 Apr, Chronic pain syndrome G89.4 [place] [address] 87300- 0188 March, Chronic pain syndrome G89.4 [facility] [address] 6[address]99 -0309 Feb, Acute non-recurrent frontal sinusitis J01.10 and Difficulty urinating R39.198 [place] [address] [place] [id number] [place] [address] 70023- 9267 Jan, [place] [address] 36557- 0811 Jan, Chronic pain syndrome G89.4 [facility] [address] 61593 -1316 Jan, Bronchitis J40 and OME (otitis media with effusion), bilateral H65.93 [place] [address] [place] [id number] [place] [address] 80005- 9333 Dec, Hematochezia K92.1 ; Periodic limb movement disorder G47.61 ; Chronic pain syndrome G89.4 ; Degenerative disc disease, cervical M50.30 ; Degenerative disc disease, lumbar M51.36 ; Other constipation K59.09 and SI joint arthritis M46.98 [place] [address] [place] [id number] [place] [address] 43186- 1661 Oct, Chronic pain syndrome G89.4 [place] [address] [place] [address] 39444- 8373 08 Oct, 2016 Chronic pain syndrome G89.4 ; Other constipation K59.09 ; Chronic prescription opiate use Z79.891 ; Degenerative disc disease, lumbar M51.36 ; Degenerative disc disease, cervical M50.30 ; Severe episode of recurrent major depressive disorder, without psychotic features F33.2 and Periodic limb movement disorder G47.61 [place] [address] [place] [id number] [place] [address] 23028- 0107 Sep, [place] [address] 60197- 3571 Jul, Chronic prescription opiate use Z79.891 ; Chronic pain syndrome G89.4 ; Adverse effect of other opioids, initial encounter T40.2X5A and Other constipation K59.09 [place] [address] [place] [id number] [place] [address] 03842- 9188 Jun, [place] [address] [place] [id number] [place] [address] 15726- 6209 May, [place] [address] 69229- 6571 Apr, Chronic pain syndrome G89.4 ; Degenerative disc disease, cervical M50.30 ; Degenerative disc disease, lumbar M51.36 ; Gastroesophageal reflux disease without esophagitis K21.9 ; Severe episode of recurrent major depressive disorder, without psychotic features F33.2 ; Screening, lipid Z13.220 ; Urinary hesitancy R39.11 and Chronic prescription opiate use Z79.891 [place] [address] [place] [id number] [place] [address] 88325- 4072 08 Apr, 2016 IMMUNIZATIONS No Known Immunizations SOCIAL HISTORY Never Assessed REASON FOR VISIT Requests return call PLAN OF CARE VITAL SIGNS MEDICATIONS Unknown [...]
--- OUTSIDE RECORDS SUMMARY | 2018-11-08 13:24 | XMS REPORT ---
Author ANNAMARIE Moraes [facility] eClinicalWorks Address Unknown Phone Unavailable Care Team Providers Care Right Of Way Cutter Name Role Phone ANNAMARIE SMILEY CP Unavailable Allergies No Known Allergies Problems Problem Type Condition Code Onset Dates Condition Status Problem Chronic pain syndrome G89.4 Active Problem Degenerative disc disease, cervical M50.30 Active Problem Other constipation K59.09 Active Problem Severe episode of recurrent major depressive disorder, without psychotic features F33.2 Active Problem Chronic prescription opiate use Z79.891 Active Problem Degenerative disc disease, lumbar M51.36 Active Problem Gastroesophageal reflux disease without esophagitis K21.9 Active Medications Medication Code System Code Instructions Start Date End Date Status Dosage Tramadol HCl [facility] [address]-32 50 mg Orally 3 times a day 1 tablet as needed Results No Known Results Summary Purpose eClinicalWorks Submission
--- OUTSIDE RECORDS SUMMARY | 2018-11-08 13:24 | XMS REPORT ---
Author Author SHERICE ANNAMARIE [facility] Address [address] [place] [address] Care Team Providers Care Specialty Therapist Name Role Phone ANNAMARIE SMILEY Unavailable PROBLEMS Type Condition ICD9-CM Code [id number] Code Onset Dates Condition Status SNOMED Code Problem Gastroesophageal reflux disease without esophagitis K21.9 Active 639002551 Problem Chronic pain syndrome G89.4 Active 509931524 Problem Degenerative disc disease, cervical M50.30 Active 84224131 Problem Chronic prescription opiate use Z79.891 Active 212658949 Problem Severe episode of recurrent major depressive disorder, without psychotic features F33.2 Active 13505293 Problem Degenerative disc disease, lumbar M51.36 Active 14811416 Problem Myoclonic jerking G25.3 Active 66190689 Problem Other chronic pain G89.29 Active 95767217 Problem Periodic limb movement disorder G47.61 Active 313866239 Problem Other constipation K59.09 Active 314236842037276 Problem Sacrococcygeal disorders, not elsewhere classified M53.3 Active 882785814 Problem Essential hypertension I10 Active 87452520 ALLERGIES Substance Reaction Event Type Date Status Lyrica Unknown Drug Allergy Jul, Active tegaderm Unknown Non Drug Allergy Jul, Active ENCOUNTERS Encounter Location Date Diagnosis [place] [address] [place] [address] 94670- 3196 Feb, Essential hypertension I10 ; Chronic pain syndrome G89.4 ; Periodic limb movement disorder G47.61 ; Myoclonic jerking G25.3 and Pain of left great toe M79.675 [place] [address] [place] [address] 12241- 1132 Feb, [place] [address] [place] [id number] [address] 7465 Feb, Chronic pain syndrome G89.4 [place] [address] [address] 29[address] Dec, Chronic pain syndrome G89.4 [facility] [address] [id number] [place] [address] 76262- 9266 Nov, [facility] [address] [id number] [place] [address] 17607- 8497 Nov, Neck pain M54.2 ; Left hand weakness R29.898 ; Degenerative disc disease, cervical M50.30 ; Chronic prescription opiate use Z79.891 and Myoclonic jerking G25.3 [facility] [id number] [place] [address] 51510- 8199 Nov, Chronic pain syndrome G89.4 [facility] [address] [id number] [place] [address] 03995- 5438 Sep, Chronic pain syndrome G89.4 [facility] [address] [id number] [place] [address] 72889- 7171 Sep, Acute non-recurrent frontal sinusitis J01.10 [facility] [id number] [place] [address] 21543- 2500 Aug, Chronic pain syndrome G89.4 [facility] [id number] [place] [address] 92801- 3205 Jul, Other chronic pain G89.29 ; Sacrococcygeal disorders, not elsewhere classified M53.3 ; Essential hypertension I10 ; Other constipation K59.09 and Chronic pain syndrome G89.4 [facility] [id number] [place] [address] 30094- 4786 Jun, Chronic pain syndrome G89.4 [facility] [address] [place] [address] [id number] [place] [address] 99463- 2896 May, Chronic pain syndrome G89.4 [facility] [id number] [place] [address] 60349- 7492 Apr, Chest pain, unspecified type R07.9 [place] [address] [place] [id number] [place] [address] 94255- 3002 Apr, Chronic prescription opiate use Z79.891 ; Other constipation K59.09 ; Chest pain, unspecified type R07.9 ; Palpitations R00.2 and Essential hypertension I10 [place] [address] [place] [id number] [place] [address] 86130- 5388 Apr, Chronic pain syndrome G89.4 [place] [address] 49109- 8543 March, Chronic pain syndrome G89.4 [facility] [address] [place] [address] 44662 -5165 Feb, Acute non-recurrent frontal sinusitis J01.10 and Difficulty urinating R39.[address] 66945- 4043 Jan, [address] 41929- 7191 Jan, Chronic pain syndrome G89.4 [facility] [address] [address] -[address] Jan, Bronchitis J40 and OME (otitis media with effusion), bilateral H65.[address] 38763- 7316 Dec, Hematochezia K92.1 ; Periodic limb movement disorder G47.61 ; Chronic pain syndrome G89.4 ; Degenerative disc disease, cervical M50.30 ; Degenerative disc disease, lumbar M51.36 ; Other constipation K59.09 and SI joint arthritis M46.[address] 09524- 5444 Oct, Chronic pain syndrome G89.4 [place] [address] [place] [id number] [place] [address] 84093- 2976 Oct, Chronic pain syndrome G89.4 ; Other constipation K59.09 ; Chronic prescription opiate use Z79.891 ; Degenerative disc disease, lumbar M51.36 ; Degenerative disc disease, cervical M50.30 ; Severe episode of recurrent major depressive disorder, without psychotic features F33.2 and Periodic limb movement disorder G47.61 [facility] [address] [place] [address] 72650- 1720 Sep, [facility] [address] [place] [id number] [place] [address] 11026- 3541 Jul, Chronic prescription opiate use Z79.891 ; Chronic pain syndrome G89.4 ; Adverse effect of other opioids, initial encounter T40.2X5A and Other constipation K59.09 [place] [address] 31657- 0199 Jun, [place] [address] [place] [id number] [place] [address] 28643- 0784 May, [place] [address] 01116- 3526 Apr, Chronic pain syndrome G89.4 ; Degenerative disc disease, cervical M50.30 ; Degenerative disc disease, lumbar M51.36 ; Gastroesophageal reflux disease without esophagitis K21.9 ; Severe episode of recurrent major depressive disorder, without psychotic features F33.2 ; Screening, lipid Z13.220 ; Urinary hesitancy R39.11 and Chronic prescription opiate use Z79.891 [place] [address] [place] [id number] [place] [address] 02800- 5743 08 Apr, 2016 IMMUNIZATIONS No Known Immunizations SOCIAL HISTORY Never Assessed REASON FOR VISIT Pain management (chronic)--TCuppettRn, -Increased pain in left SI joint, - Swollen abdomen. Was scheduled for colonoscopy but had to cancel back in December. PLAN OF CARE Activity Details Follow Up 3 Months Reason:Chronic pain VITAL SIGNS Height 69 in 2017-08-19 Weight 175.1 lbs 2017-08-19 Temperature 98.2 degrees Fahrenheit 2017-08-19 Heart Rate 84 bpm 2017-08-19 Respiratory Rate 20 2017-08-19 BMI 25.85 kg/m2 2017-08-19 Blood pressure systolic 120 mmHg 2017-08-19 Blood pressure diastolic 82 mmHg 2017-08-19 MEDICATIONS Medication Instructions Dosage Frequency Start Date End Date Duration Status Cymbalta 30 MG Orally Twice a day 1 capsule 12h Active Ex-Lax 15 MG Orally Once a day 1 tablet at bedtime as needed 24h Active Cymbalta 60 MG Orally Once a day 1 capsule 24h Active Gabapentin 600 MG Orally Three times a day 1 capsule 8h Active Tramadol HCl 50 mg Orally 3 times a day 1 tablet as needed 8h 28 days Active Lumbar Back Brace/Support Pad Back stabilizer as directed Dec, lifetime Active Meloxicam 7.5 TAKE 1 TABLET BY MOUTH ONCE DAILY Active Lisinopril 20 mg Orally Once a day 1 tablet 24h Apr, Active Tizanidine HCl 4 MG Orally every 6 hrs 1 tablet as needed 6h Active Baclofen 20 MG Orally Three times a day 1 1/2 tablet with food or milk 8h Active RESULTS Name Result Date Reference Range CBC 2017-08-19 WBC 5.6 3.4-10.8 RBC 4.67 4.14-5.80 Hemoglobin 13.6 12.6-17.7 Hematocrit 41.0 37.5-51.0 MCV 88 79-97 MCH 29.1 26.6-33.0 MCHC 33.2 31.5-35.7 RDW 13.6 12.3-15.4 Platelets 283 150-379 Neutrophils 58 Lymphs 31 Monocytes 8 Eos 3 Basos 0 Neutrophils (Absolute) 3.2 1.4-7.0 Lymphs (Absolute) 1.8 0.7-3.1 Monocytes(Absolute) 0.5 0.1-0.9 Eos (Absolute) 0.2 0.0-0.4 Baso (Absolute) 0.0 0.0-0.2 Immature Granulocytes 0 Immature Grans (Abs) 0.0 0.0-0.1 LIPID PANEL 2017-08-19 Cholesterol, Total 173 100-199 Triglycerides 51 0-149 HDL Cholesterol 58 >39 VLDL Cholesterol Hardy 10 5-40 LDL Cholesterol Calc 105 0-99 CMP 2017-08-19 Glucose, Serum 83 65-99 BUN 12 6-24 Creatinine, Serum 0.87 0.76-1.27 eGFR If NonAfricn Am 100 >59 eGFR If Africn Am 116 >59 BUN/Creatinine Ratio 14 9-20 Sodium, Serum 140 134-144 Potassium, Serum 4.2 3.5-5.2 Chloride, Serum 100 96-106 Carbon Dioxide, Total 26 18-29 Calcium, Serum 9.1 8.7-10.2 Protein, Total, Serum 6.7 6.0-8.5 Albumin, Serum 4.7 3.5-5.5 Globulin, Total 2.0 1.5-4.5 A/G Ratio 2.4 1.2-2.2 Bilirubin, Total 0.2 0.0-1.2 Alkaline Phosphatase, S 55 39-117 AST (SGOT) 23 0-40 ALT (SGPT) 21 0-44 PROCEDURES Procedure Date Ordered Result Body Site COMPREHEN METABOLIC PANEL Aug 19, 2017 COMPLETE CBC W/AUTO DIFF WBC Aug 19, 2017 LIPID PANEL Aug 19, 2017 VENIPUNCT, ROUTINE* Aug 19, 2017 INSTRUCTIONS MEDICATIONS ADMINISTERED No Known Medications MEDICAL [...]
--- OUTSIDE RECORDS SUMMARY | 2018-11-08 13:24 | XMS REPORT ---
Author Author SHERICE ANNAMARIE Organization [facility] Address [address] [place] [address] Care Team Providers Care Lang Interpreter Name Role Phone SHERICE, ANNAMARIE Unavailable PROBLEMS Type Condition ICD9-CM Code [id number] Code Onset Dates Condition Status SNOMED Code Assessment Adverse effect of other opioids, initial encounter T40.2X5A Jul, Active 289823629 Problem Chronic prescription opiate use Z79.891 Active 869261176 Assessment Chronic prescription opiate use Z79.891 Jul, Active 374037134 Problem Other constipation K59.09 Active 005650749512055 Problem Chronic pain syndrome G89.4 Active 328267555 Problem Gastroesophageal reflux disease without esophagitis K21.9 Active 940910592 Problem Severe episode of recurrent major depressive disorder, without psychotic features F33.2 Active 48428521 Problem Degenerative disc disease, cervical M50.30 Active 71253421 Problem Degenerative disc disease, lumbar M51.36 Active 52578125 ALLERGIES Substance Reaction Event Type Date Status Lyrica Unknown Drug Allergy Jul, Active tegaderm Unknown Non Drug Allergy Jul, Active SOCIAL HISTORY No smoking Hx information available PLAN OF CARE VITAL SIGNS Height 69 in 2016-08-10 Weight 170.0 lbs 2016-08-10 Heart Rate 74 bpm 2016-08-10 Respiratory Rate 18 2016-08-10 BMI 25.10 kg/m2 2016-08-10 Blood pressure systolic 135 mmHg 2016-08-10 Blood pressure diastolic 82 mmHg 2016-08-10 MEDICATIONS Medication Instructions Dosage Frequency Start Date End Date Duration Status Cymbalta 30 MG Orally Twice a day 1 capsule 12h Active HM Senna-S 8.6-50 MG Orally twice a day 1 tablet 12h 20 Jul, 2016 Jan, 90 days Active Baclofen 10 mg Orally Three times a day 1 1/2 tablet with food or milk 8h Jan, 90 days Active Tizanidine HCl 4 MG Orally every 6 hrs 1 tablet as needed 6h Jan, 90 days Active Meloxicam 7.5 MG Orally Once a day 1 tablet 24h Jan, 90 days Active Gabapentin 300 MG Orally Three times a day 1 capsule 8h 90 days Active Tramadol HCl 50 mg Orally 3 times a day 1 tablet as needed 8h 28 days Active Cymbalta 60 MG Orally Once a day 1 capsule 24h Active RESULTS No Results PROCEDURES Procedure Date Ordered Related Diagnosis Body Site Office Visit, Est Pt., Level 3 Aug 10, 2016 IMMUNIZATIONS No Known Immunizations
--- OUTSIDE RECORDS SUMMARY | 2018-11-08 13:24 | XMS REPORT ---
Author Author ANNAMARIE SMILEY Organization [facility] Address [address] [place] [address] Care Team Providers Care Fur Dry Cleaner Hand Name Role Phone SHERICE ANNAMARIE Unavailable PROBLEMS Type Condition ICD9-CM Code XUH43-VW Code Onset Dates Condition Status SNOMED Code Problem Severe episode of recurrent major depressive disorder, without psychotic features F33.2 Active 79947594 Problem Degenerative disc disease, cervical M50.30 Active 28776392 Problem Gastroesophageal reflux disease without esophagitis K21.9 Active 255752581 Problem Degenerative disc disease, lumbar M51.36 Active 49684823 Problem Chronic prescription opiate use Z79.891 Active 405979601 Problem Other chronic pain G89.29 Active 89091271 Problem Sacrococcygeal disorders, not elsewhere classified M53.3 Active 958791713 Problem Other constipation K59.09 Active 462138026044159 Problem Chronic pain syndrome G89.4 Active 270539639 Problem Essential hypertension I10 Active 88423160 Problem Periodic limb movement disorder G47.61 Active 381793143 ALLERGIES No Information SOCIAL HISTORY Never Assessed PLAN OF CARE VITAL SIGNS MEDICATIONS Medication Instructions Dosage Frequency Start Date End Date Duration Status Tramadol HCl 50 mg Orally 3 times a day 1 tablet as needed 8h 28 days Active RESULTS No Results PROCEDURES No Known procedures IMMUNIZATIONS No Known Immunizations MEDICAL (GENERAL) HISTORY Type Description Date Medical [...]
--- OUTSIDE RECORDS SUMMARY | 2018-11-08 13:24 | XMS REPORT ---
Author Author SHERICE ANNAMARIE [facility] Address [address] [place] [address] Care Team Providers Care Nuclear Reactor Technician Name Role Phone SHERICECOURTNEY MILLERHANY Unavailable PROBLEMS Type Condition ICD9-CM Code LVK05-IM Code Onset Dates Condition Status SNOMED Code Problem Gastroesophageal reflux disease without esophagitis K21.9 Active 031719262 Problem Chronic pain syndrome G89.4 Active 239539826 Problem Degenerative disc disease, cervical M50.30 Active 50175190 Problem Chronic prescription opiate use Z79.891 Active 057220866 Problem Severe episode of recurrent major depressive disorder, without psychotic features F33.2 Active 88919011 Problem Degenerative disc disease, lumbar M51.36 Active 57632822 Problem Myoclonic jerking G25.3 Active 46809046 Problem Other chronic pain G89.29 Active 76792338 Problem Periodic limb movement disorder G47.61 Active 059127641 Problem Other constipation K59.09 Active 715558476107538 Problem Sacrococcygeal disorders, not elsewhere classified M53.3 Active 019586810 Problem Essential hypertension I10 Active 11983341 ALLERGIES No Information ENCOUNTERS Encounter Location Date Diagnosis [facility] [address] [address] Feb, [facility] [address] [place] [id number] [place] [address] 34361- 0025 Feb, [facility] [id number] [place] [address] 13965- 4550 Feb, Chronic pain syndrome G89.4 [facility] [id number] [place] [address] 46999- 9291 Dec, Chronic pain syndrome G89.4 [facility] [id number] [place] [address] 08670- 5926 Nov, [place] [id number] [place] [address] 63125- 0990 Nov, Neck pain M54.2 ; Left hand weakness R29.898 ; Degenerative disc disease, cervical M50.30 ; Chronic prescription opiate use Z79.891 and Myoclonic jerking G25.3 [place] [id number] [place] [address] 28466- 4854 Nov, Chronic pain syndrome G89.4 [place] [address] [address] [id number] [place] [address] 55088- 1735 Sep, Chronic pain syndrome G89.4 [place] [address] 84343- 2504 Sep, Acute non-recurrent frontal sinusitis J01.10 [place] [address] [place] [address] [id number] [place] [address] 69227- 7721 Aug, Chronic pain syndrome G89.4 [place] [address] [id number] [place] [address] 75052- 4999 Jul, Other chronic pain G89.29 ; Sacrococcygeal disorders, not elsewhere classified M53.3 ; Essential hypertension I10 ; Other constipation K59.09 and Chronic pain syndrome G89.4 [place] [id number] [place] [address] 19742- 8581 Jun, Chronic pain syndrome G89.4 [place] [address] [address] [id number] [place] [address] 31086- 7795 May, Chronic pain syndrome G89.4 [place] [address] [address] [id number] [place] [address] 59139- 0611 Apr, Chest pain, unspecified type R07.9 [facility] [id number] [place] [address] 57558- 1298 Apr, Chronic prescription opiate use Z79.891 ; Other constipation K59.09 ; Chest pain, unspecified type R07.9 ; Palpitations R00.2 and Essential hypertension I10 [place] [id number] [place] [address] 81981- 5597 Apr, Chronic pain syndrome G89.4 [place] [id number] [place] [address] 20746- 4313 March, Chronic pain syndrome G89.4 [facility] [id number] [place] [address] 46245 -7345 Feb, Acute non-recurrent frontal sinusitis J01.10 and Difficulty urinating R39.198 [place] [id number] [place] [address] 45898- 5752 Jan, [place] [id number] [place] [address] 46019- 3640 Jan, Chronic pain syndrome G89.4 [facility] [place] [id number] [place] [address] 00730 -9444 Jan, Bronchitis J40 and OME (otitis media with effusion), bilateral H65.93 [place] [address] [id number] [place] [address] 77191- 2371 Dec, Hematochezia K92.1 ; Periodic limb movement disorder G47.61 ; Chronic pain syndrome G89.4 ; Degenerative disc disease, cervical M50.30 ; Degenerative disc disease, lumbar M51.36 ; Other constipation K59.09 and SI joint arthritis M46.98 [place] [address] [place] [address] 31172- 8627 Oct, Chronic pain syndrome G89.4 [place] [address] [id number] [place] [address] 88055- 9098 Oct, Chronic pain syndrome G89.4 ; Other constipation K59.09 ; Chronic prescription opiate use Z79.891 ; Degenerative disc disease, lumbar M51.36 ; Degenerative disc disease, cervical M50.30 ; Severe episode of recurrent major depressive disorder, without psychotic features F33.2 and Periodic limb movement disorder G47.61 [place] [id number] [place] [address] 81203- 5987 Sep, [place] [address] [address] 0349 Jul, Chronic prescription opiate use Z79.891 ; Chronic pain syndrome G89.4 ; Adverse effect of other opioids, initial encounter T40.2X5A and Other constipation K59.09 [place] [address] [place] [address] 87523- 5373 Jun, [place] [address] [address] [id number] [place] [address] 06516- 8685 May, [place] [address] [place] [address] 26327- 5762 Apr, Chronic pain syndrome G89.4 ; Degenerative disc disease, cervical M50.30 ; Degenerative disc disease, lumbar M51.36 ; Gastroesophageal reflux disease without esophagitis K21.9 ; Severe episode of recurrent major depressive disorder, without psychotic features F33.2 ; Screening, lipid Z13.220 ; Urinary hesitancy R39.11 and Chronic prescription opiate use Z79.891 [place] [address] [place] [address] 01749- 7983 Apr, IMMUNIZATIONS No Known Immunizations SOCIAL HISTORY [...]
--- OUTSIDE RECORDS SUMMARY | 2018-11-08 13:24 | XMS REPORT ---
Author Author SHERICE ANNAMARIE [facility] Address [address] [place] [address] Care Team Providers Care Cartridge Feeder Name Role Phone ANNAMARIE SMILEY Unavailable PROBLEMS Type Condition ICD9-CM Code [id number] Code Onset Dates Condition Status SNOMED Code Problem Gastroesophageal reflux disease without esophagitis K21.9 Active 101158371 Problem Chronic pain syndrome G89.4 Active 703426718 Problem Degenerative disc disease, cervical M50.30 Active 83763600 Problem Chronic prescription opiate use Z79.891 Active 791082325 Problem Severe episode of recurrent major depressive disorder, without psychotic features F33.2 Active 97830310 Problem Degenerative disc disease, lumbar M51.36 Active 55986620 Problem Myoclonic jerking G25.3 Active 32224617 Problem Other chronic pain G89.29 Active 21567480 Problem Periodic limb movement disorder G47.61 Active 488029958 Problem Other constipation K59.09 Active 091575787864505 Problem Sacrococcygeal disorders, not elsewhere classified M53.3 Active 461546165 Problem Essential hypertension I10 Active 50610664 ALLERGIES No Information ENCOUNTERS Encounter Location Date Diagnosis [place] [address] [place] [address] 16074- 0419 March, Chronic pain syndrome G89.4 [facility] [address] [place] [id number] [place] [address] 48135- 6919 Feb, Essential hypertension I10 ; Chronic pain syndrome G89.4 ; Periodic limb movement disorder G47.61 ; Myoclonic jerking G25.3 and Pain of left great toe M79.675 [facility] [address] [id number] [place] [address] 84006- 8716 Feb, [place] [address] [place] [id number] [place] [address] 98595- 0819 Feb, Chronic pain syndrome G89.4 [facility] [id number] [place] [address] 80660- 5179 Dec, Chronic pain syndrome G89.4 [facility] [address] [place] [address] [id number] [place] [address] 13284- 8963 Nov, [facility] [address] [place] [id number] [place] [address] 73863- 0862 Nov, Neck pain M54.2 ; Left hand weakness R29.898 ; Degenerative disc disease, cervical M50.30 ; Chronic prescription opiate use Z79.891 and Myoclonic jerking G25.3 [place] [address] [place] [id number] [place] [address] 75113- 8438 Nov, Chronic pain syndrome G89.4 [place] [address] [place] [id number] [place] [address] 49048- 3840 Sep, Chronic pain syndrome G89.4 [facility] [address] [place] [address] [id number] [place] [address] 22506- 3166 Sep, Acute non-recurrent frontal sinusitis J01.10 [place] [address] [place] [id number] [place] [address] 64759- 1663 Aug, Chronic pain syndrome G89.4 [facility] [address] [place] [address] [id number] [place] [address] 22633- 7807 Jul, Other chronic pain G89.29 ; Sacrococcygeal disorders, not elsewhere classified M53.3 ; Essential hypertension I10 ; Other constipation K59.09 and Chronic pain syndrome G89.4 [facility] [id number] [place] [address] 02345- 9606 Jun, Chronic pain syndrome G89.4 [facility] [address] [place] [address] [id number] [place] [address] 42173- 3633 May, Chronic pain syndrome G89.4 [facility] [address] [place] [address] [id number] [place] [address] 56831- 2128 Apr, Chest pain, unspecified type R07.9 [place] [address] 57121- 2384 Apr, Chronic prescription opiate use Z79.891 ; Other constipation K59.09 ; Chest pain, unspecified type R07.9 ; Palpitations R00.2 and Essential hypertension I10 [address] 32314- 4459 Apr, Chronic pain syndrome G89.4 [place] [address] 83742- 7479 March, Chronic pain syndrome G89.4 [facility] [address] 46641 -5099 Feb, Acute non-recurrent frontal sinusitis J01.10 and Difficulty urinating R39.[address] 81154- 1521 Jan, [place] [address] 56480- 3650 Jan, Chronic pain syndrome G89.4 [facility] [address] 74325 -8373 Jan, Bronchitis J40 and OME (otitis media with effusion), bilateral H65.[address] 53267- 1473 Dec, Hematochezia K92.1 ; Periodic limb movement disorder G47.61 ; Chronic pain syndrome G89.4 ; Degenerative disc disease, cervical M50.30 ; Degenerative disc disease, lumbar M51.36 ; Other constipation K59.09 and SI joint arthritis M46.[address] 98123- 3309 Oct, Chronic pain syndrome G89.[address] 67541- 9522 Oct, Chronic pain syndrome G89.4 ; Other constipation K59.09 ; Chronic prescription opiate use Z79.891 ; Degenerative disc disease, lumbar M51.36 ; Degenerative disc disease, cervical M50.30 ; Severe episode of recurrent major depressive disorder, without psychotic features F33.2 and Periodic limb movement disorder G47.61 [place] [address] [place] [address] 44723- 0562 Sep, [place] [address] 54996- 2351 Jul, Chronic prescription opiate use Z79.891 ; Chronic pain syndrome G89.4 ; Adverse effect of other opioids, initial encounter T40.2X5A and Other constipation K59.09 [place] [id number] [place] [address] 30840- 1149 Jun, [place] [address] [place] [id number] [place] [address] 79224- 4502 May, [place] [address] [place] [id number] [place] [address] 67787- 9220 Apr, Chronic pain syndrome G89.4 ; Degenerative disc disease, cervical M50.30 ; Degenerative disc disease, lumbar M51.36 ; Gastroesophageal reflux disease without esophagitis K21.9 ; Severe episode of recurrent major depressive disorder, without psychotic features F33.2 ; Screening, lipid Z13.220 ; Urinary hesitancy R39.11 and Chronic prescription opiate use Z79.891 [place] [id number] [place] [address] 95001- 8209 Apr, IMMUNIZATIONS No Known Immunizations SOCIAL HISTORY Never Assessed REASON FOR VISIT Medication refill request PLAN OF CARE VITAL SIGNS MEDICATIONS [...]
--- OUTSIDE RECORDS SUMMARY | 2018-11-08 13:24 | XMS REPORT ---
Author Author SHERICE ANNAMARIE [facility] Address [address] [place] [address] Care Team Providers Care Costume Shop Manager Name Role Phone CHAGO SMILEYY Unavailable PROBLEMS Type Condition ICD9-CM Code LRB42-ST Code Onset Dates Condition Status SNOMED Code Problem Gastroesophageal reflux disease without esophagitis K21.9 Active 010070004 Problem Chronic pain syndrome G89.4 Active 016991757 Problem Degenerative disc disease, cervical M50.30 Active 70579333 Problem Chronic prescription opiate use Z79.891 Active 814917263 Problem Severe episode of recurrent major depressive disorder, without psychotic features F33.2 Active 96373654 Problem Degenerative disc disease, lumbar M51.36 Active 79081920 Problem Myoclonic jerking G25.3 Active 60336094 Problem Other chronic pain G89.29 Active 60525972 Problem Periodic limb movement disorder G47.61 Active 597222274 Problem Other constipation K59.09 Active 801284441046595 Problem Sacrococcygeal disorders, not elsewhere classified M53.3 Active 361166817 Problem Essential hypertension I10 Active 46489495 ALLERGIES No Information ENCOUNTERS Encounter Location Date Diagnosis [place] [address] [address]- 3570 Feb, [place] [address] [place] [id number] [place] [address] 91656- 4641 Dec, Chronic pain syndrome G89.4 [place] [address] [place] [id number] [place] [address] 54375- 7500 Nov, [place] [address] [place] [address] [id number] [place] [address] 74483- 6909 Nov, Neck pain M54.2 ; Left hand weakness R29.898 ; Degenerative disc disease, cervical M50.30 ; Chronic prescription opiate use Z79.891 and Myoclonic jerking G25.3 [place] [address] [place] [id number] [place] [address] 22333- 3084 Nov, Chronic pain syndrome G89.4 [facility] [address] [place] [id number] [place] [address] 70931- 5531 Sep, Chronic pain syndrome G89.4 [place] [address] [place] [address] [id number] [place] [address] 90086- 3929 Sep, Acute non-recurrent frontal sinusitis J01.10 [place] [address] [place] [id number] [place] [address] 42545- 3528 Aug, Chronic pain syndrome G89.4 [place] [address] [place] [address] [id number] [place] [address] 88651- 3656 Jul, Other chronic pain G89.29 ; Sacrococcygeal disorders, not elsewhere classified M53.3 ; Essential hypertension I10 ; Other constipation K59.09 and Chronic pain syndrome G89.4 [place] [address] [place] [address] [id number] [place] [address] 41979- 5189 Jun, Chronic pain syndrome G89.4 [place] [address] [place] [address] [id number] [place] [address] 12473- 2047 May, Chronic pain syndrome G89.4 [place] [address] [place] [address] [id number] [place] [address] 81155- 0623 Apr, Chest pain, unspecified type R07.9 [place] [address] [place] [id number] [place] [address] 14183- 6125 Apr, Chronic prescription opiate use Z79.891 ; Other constipation K59.09 ; Chest pain, unspecified type R07.9 ; Palpitations R00.2 and Essential hypertension I10 [place] [address] [place] [address] [id number] [place] [address] 54817- 5604 Apr, Chronic pain syndrome G89.4 [place] [address] [place] [address] [id number] [place] [address] 88888- 7980 March, Chronic pain syndrome G89.4 [facility] [address] [place] [address] 98916 -8048 Feb, Acute non-recurrent frontal sinusitis J01.10 and Difficulty urinating R39.198 [facility] [address] [place] [address] 15511- 8491 Jan, [facility] [address] 87278- 2742 Jan, Chronic pain syndrome G89.4 [facility] [address] [place] [id number] [place] [address] 54290 -4529 Jan, Bronchitis J40 and OME (otitis media with effusion), bilateral H65.93 [facility] [address] [place] [id number] [place] [address] 89282- 4082 Dec, Hematochezia K92.1 ; Periodic limb movement disorder G47.61 ; Chronic pain syndrome G89.4 ; Degenerative disc disease, cervical M50.30 ; Degenerative disc disease, lumbar M51.36 ; Other constipation K59.09 and SI joint arthritis M46.98 [place] [address] [place] [id number] [place] [address] 83791- 6761 Oct, Chronic pain syndrome G89.4 [facility] [address] [place] [address] [id number] [place] [address] 77726- 7848 08 Oct, 2016 Chronic pain syndrome G89.4 ; Other constipation K59.09 ; Chronic prescription opiate use Z79.891 ; Degenerative disc disease, lumbar M51.36 ; Degenerative disc disease, cervical M50.30 ; Severe episode of recurrent major depressive disorder, without psychotic features F33.2 and Periodic limb movement disorder G47.61 [place] [address] [place] [address] [id number] [place] [address] 26812- 2277 Sep, [facility] [address] [place] [address] [id number] [place] [address] 69994- 0971 20 Jul, 2016 Chronic prescription opiate use Z79.891 ; Chronic pain syndrome G89.4 ; Adverse effect of other opioids, initial encounter T40.2X5A and Other constipation K59.09 [place] [address] [place] [id number] [address]- 0805 Jun, [place] [address] [address]- 8334 May, [place] [address] [place] [id number] [address]- 0907 Apr, Chronic pain syndrome G89.4 ; Degenerative disc disease, cervical M50.30 ; Degenerative disc disease, lumbar M51.36 ; Gastroesophageal reflux disease without esophagitis K21.9 ; Severe episode of recurrent major depressive disorder, without psychotic features F33.2 ; Screening, lipid Z13.220 ; Urinary hesitancy R39.11 and Chronic prescription opiate use Z79.891 [place] [address] [place] [id number] [address]- 6415 Apr, IMMUNIZATIONS No Known Immunizations SOCIAL HISTORY Never Assessed REASON FOR VISIT Controlled Refill Request PLAN OF CARE VITAL SIGNS [...]
--- OUTSIDE RECORDS SUMMARY | 2018-11-08 13:25 | XMS REPORT ---
Author Author ANNAMARIE SMILEY Organization [facility] Address [address] [place] [address] Care Team Providers Care Front End Software Engineer Name Role Phone SHERICE ANNAMARIE Unavailable PROBLEMS Type Condition ICD9-CM Code IFB35-HV Code Onset Dates Condition Status SNOMED Code Problem Severe episode of recurrent major depressive disorder, without psychotic features F33.2 Active 11415825 Problem Degenerative disc disease, cervical M50.30 Active 07997569 Problem Gastroesophageal reflux disease without esophagitis K21.9 Active 517193321 Problem Degenerative disc disease, lumbar M51.36 Active 59061083 Problem Chronic prescription opiate use Z79.891 Active 085769800 Problem Other chronic pain G89.29 Active 12628292 Problem Sacrococcygeal disorders, not elsewhere classified M53.3 Active 485345256 Problem Other constipation K59.09 Active 205508620928050 Problem Chronic pain syndrome G89.4 Active 230172418 Problem Essential hypertension I10 Active 46198577 Problem Periodic limb movement disorder G47.61 Active 233437631 ALLERGIES No Information SOCIAL HISTORY Never Assessed [...]
--- OUTSIDE RECORDS SUMMARY | 2018-11-08 13:25 | XMS REPORT ---
Author Author SHERICE ANNAMARIE [facility] Address [address] [place] [address] Care Team Providers Care Ticket Taker Ferryboat Name Role Phone ANNAMARIE SMILEY Unavailable PROBLEMS Type Condition ICD9-CM Code [id number] Code Onset Dates Condition Status SNOMED Code Problem Gastroesophageal reflux disease without esophagitis K21.9 Active 380932006 Problem Chronic pain syndrome G89.4 Active 113274524 Problem Degenerative disc disease, cervical M50.30 Active 88743243 Problem Chronic prescription opiate use Z79.891 Active 624869505 Problem Severe episode of recurrent major depressive disorder, without psychotic features F33.2 Active 33188712 Problem Degenerative disc disease, lumbar M51.36 Active 03223738 Problem Myoclonic jerking G25.3 Active 16410091 Problem Other chronic pain G89.29 Active 85198187 Problem Periodic limb movement disorder G47.61 Active 494121875 Problem Other constipation K59.09 Active 106613443060400 Problem Sacrococcygeal disorders, not elsewhere classified M53.3 Active 417394025 Problem Essential hypertension I10 Active 40330033 ALLERGIES Substance Reaction Event Type Date Status Lyrica Unknown Drug Allergy Nov, Active tegaderm Unknown Non Drug Allergy Nov, Active ENCOUNTERS Encounter Location Date Diagnosis [facility] [id number], [place] [address] Apr, Chronic pain syndrome G89.4 [facility] [id number], [place] [address] March, Chronic pain syndrome G89.4 [facility] [id number] [place] [address] 30959- 4536 Feb, Essential hypertension I10 ; Chronic pain syndrome G89.4 ; Periodic limb movement disorder G47.61 ; Myoclonic jerking G25.3 and Pain of left great toe M79.675 [facility] [id number] [place] [address] 21018- 4679 Feb, [facility] [id number] [place] [address] 83079- 3351 Feb, Chronic pain syndrome G89.4 [facility] [id number] [place] [address] 63416- 0294 Dec, Chronic pain syndrome G89.4 [facility] [id number] [place] [address] 73101- 4920 Nov, [facility] [id number] [place] [address] 22027- 3895 Nov, Neck pain M54.2 ; Left hand weakness R29.898 ; Degenerative disc disease, cervical M50.30 ; Chronic prescription opiate use Z79.891 and Myoclonic jerking G25.3 [address] [id number] [place] [address] 61387- 8206 Nov, Chronic pain syndrome G89.4 [facility] [id number] [place] [address] 90944- 4547 Sep, Chronic pain syndrome G89.4 [facility] [id number] [place] [address] 28994- 2089 Sep, Acute non-recurrent frontal sinusitis J01.10 [address] [place] [id number] [place] [address] 25888- 3551 Aug, Chronic pain syndrome G89.4 [facility] [id number] [place] [address] 08804- 2949 Jul, Other chronic pain G89.29 ; Sacrococcygeal disorders, not elsewhere classified M53.3 ; Essential hypertension I10 ; Other constipation K59.09 and Chronic pain syndrome G89.4 [facility] [id number] [place] [address] 15137- 3962 Jun, Chronic pain syndrome G89.4 [place] [id number] [place] [address] 90222- 2644 May, Chronic pain syndrome G89.4 [place] [address] [address] Apr, Chest pain, unspecified type R07.9 [address] [address] 39422- 9[address] Apr, Chronic prescription opiate use Z79.891 ; Other constipation K59.09 ; Chest pain, unspecified type R07.9 ; Palpitations R00.2 and Essential hypertension I10 [address] [address] 549[address] 9658 Apr, Chronic pain syndrome G89.4 [place] [address] 0[address]- 9512 March, Chronic pain syndrome G89.[address] [facility] [address] [address] Feb, Acute non-recurrent frontal sinusitis J01.10 and Difficulty urinating R39.198 [address] 324[address]- 8831 Jan, [place] [address] 25022- [address] Jan, Chronic pain syndrome G89.4 [facility] [address] [address] Jan, Bronchitis J40 and OME (otitis media with effusion), bilateral H65.[address] [address]- [address] Dec, Hematochezia K92.1 ; Periodic limb movement disorder G47.61 ; Chronic pain syndrome G89.4 ; Degenerative disc disease, cervical M50.30 ; Degenerative disc disease, lumbar M51.36 ; Other constipation K59.09 and SI joint arthritis M46.98 [address] [place] [id number] [place] [address] 89245- 2254 Oct, Chronic pain syndrome G89.4 [place] [id number] [place] [address] 94695- 5572 Oct, Chronic pain syndrome G89.4 ; Other constipation K59.09 ; Chronic prescription opiate use Z79.891 ; Degenerative disc disease, lumbar M51.36 ; Degenerative disc disease, cervical M50.30 ; Severe episode of recurrent major depressive disorder, without psychotic features F33.2 and Periodic limb movement disorder G47.61 [place] [id number] [place] [address] 01945- 8456 Sep, [place] [id number] [place] [address] 32844- 6925 Jul, Chronic prescription opiate use Z79.891 ; Chronic pain syndrome G89.4 ; Adverse effect of other opioids, initial encounter T40.2X5A and Other constipation K59.09 [address] [id number] [place] [address] 87415- 7349 Jun, [place] [id number] [place] [address] 74451- 1146 May, [place] [id number] [place] [address] 78935- 2092 Apr, Chronic pain syndrome G89.4 ; Degenerative disc disease, cervical M50.30 ; Degenerative disc disease, lumbar M51.36 ; Gastroesophageal reflux disease without esophagitis K21.9 ; Severe episode of recurrent major depressive disorder, without psychotic features F33.2 ; Screening, lipid Z13.220 ; Urinary hesitancy R39.11 and Chronic prescription opiate use Z79.891 [place] [place] [id number] [place] [address] 52681- 2585 Apr, IMMUNIZATIONS No Known Immunizations SOCIAL HISTORY Never Assessed REASON FOR VISIT Pain management (chronic) -- tony petersen, painful knot on left side of neck x 3 months , tingling on both hands, patient states his cymblata was chnage to 120 mgs PLAN OF CARE Activity Details Follow Up 3 Months Reason:Chronic pain VITAL SIGNS Height 69 in 2017-12-08 Weight 181.5 lbs 2017-12-08 Temperature 97.7 degrees Fahrenheit 2017-12-08 Heart Rate 92 bpm 2017-12-08 Respiratory Rate 20 2017-12-08 BMI 26.80 kg/m2 2017-12-08 Blood pressure systolic 140 mmHg 2017-12-08 Blood pressure diastolic 88 mmHg 2017-12-08 MEDICATIONS Medication Instructions Dosage Frequency Start Date End Date Duration Status Fluticasone Propionate 50 MCG/ACT Nasally Once a day 1 spray in each nostril 24h Feb, 30 day(s) Active Ex-Lax 15 MG Orally Once a day 1 tablet at bedtime as needed 24h Active Lisinopril 20 mg Orally Once a day 1 tablet 24h Apr, Active Royal Oil 100 % Not-Taking Cymbalta 60 mg Orally Once a day 2 capsules 24h Active Gabapentin 600 MG Orally Three times a day 1 capsule 8h 90 Active Baclofen 20 MG Orally Three times a day 1 1/2 tablet with food or milk 8h 90 Active Tramadol HCl 50 mg Orally 3 times a day 1 tablet as needed 8h 28 days Active Lumbar Back Brace/Support Pad Back stabilizer as directed Dec, lifetime Active Tizanidine HCl 4 MG Orally every 6 hrs 1 tablet as needed 6h 90 Active Meloxicam 7.5 TAKE 1 TABLET BY MOUTH ONCE DAILY 30 Active RESULTS Name Result Date Reference Range AMERITOX 2017-12-08 MRI : Cervical w/o Contrast 2017-12-15 PROCEDURES Procedure Date Ordered Result Body Site No Charge Dec 08, 2017 INSTRUCTIONS MEDICATIONS ADMINISTERED No Known Medications [...]
--- OUTSIDE RECORDS SUMMARY | 2018-11-08 13:25 | XMS REPORT ---
Author Author ANNAMARIE SMILEY Organization [facility] Address [address] [place] [address] Care Team Providers Care Installer Metal Flooring Name Role Phone ANNAMARIE SMILEY Unavailable PROBLEMS Type Condition ICD9-CM Code [id number] Code Onset Dates Condition Status SNOMED Code Problem Chronic prescription opiate use Z79.891 Active 269722197 Problem Gastroesophageal reflux disease without esophagitis K21.9 Active 716464875 Problem Severe episode of recurrent major depressive disorder, without psychotic features F33.2 Active 15222325 Problem Essential hypertension I10 Active 96975157 Problem Periodic limb movement disorder G47.61 Active 782889430 Problem Degenerative disc disease, cervical M50.30 Active 24255021 Problem Degenerative disc disease, lumbar M51.36 Active 89719252 Problem Other constipation K59.09 Active 933762876325903 Problem Chronic pain syndrome G89.4 Active 488754765 ALLERGIES Unknown Allergies SOCIAL HISTORY No smoking Hx information available PLAN OF CARE VITAL SIGNS MEDICATIONS Medication Instructions Dosage Frequency Start Date End Date Duration Status Tramadol HCl 50 mg Orally 3 times a day 1 tablet as needed 8h 28 days Active Tizanidine HCl 4 MG Orally every 6 hrs 1 tablet as needed 6h 90 days Active Baclofen 10 mg Orally Three times a day 1 1/2 tablet with food or milk 8h 90 days Active RESULTS No Results PROCEDURES No Known procedures IMMUNIZATIONS No Known Immunizations
--- OUTSIDE RECORDS SUMMARY | 2018-11-08 13:25 | XMS REPORT ---
Author Author ANNAMARIE SMILEY [facility] Address [address] [place] [address] Care Team Providers Care Business Unit Director Name Role Phone SHERICECOURTNEY MILLERHANY Unavailable PROBLEMS Type Condition ICD9-CM Code [id number] Code Onset Dates Condition Status SNOMED Code Problem Chronic prescription opiate use Z79.891 Active 722348696 Problem Gastroesophageal reflux disease without esophagitis K21.9 Active 816944516 Problem Severe episode of recurrent major depressive disorder, without psychotic features F33.2 Active 41722551 Problem Essential hypertension I10 Active 45007822 Problem Periodic limb movement disorder G47.61 Active 397831312 Problem Chronic pain syndrome G89.4 Active 093421270 Problem Degenerative disc disease, cervical M50.30 Active 31296953 Problem Other constipation K59.09 Active 252667132482772 Problem Degenerative disc disease, lumbar M51.36 Active 99451600 ALLERGIES Substance Reaction Event Type Date Status Lyrica Unknown Drug Allergy Dec, Active tegaderm Unknown Non Drug Allergy Dec, Active SOCIAL HISTORY No smoking Hx information available PLAN OF CARE Activity Details Follow Up 3 Months Reason:Pain VITAL SIGNS Height 69 in 2016-12-24 Weight 180.0 lbs 2016-12-24 Temperature 98.0 degrees Fahrenheit 2016-12-24 Heart Rate 80 bpm 2016-12-24 Respiratory Rate 20 2016-12-24 BMI 26.58 kg/m2 2016-12-24 Blood pressure systolic 134 mmHg 2016-12-24 Blood pressure diastolic 82 mmHg 2016-12-24 MEDICATIONS Medication Instructions Dosage Frequency Start Date End Date Duration Status Tizanidine HCl 4 MG Orally every 6 hrs 1 tablet as needed 6h Jan, 90 days Active Gabapentin 600 MG Orally Three times a day 1 capsule 8h 90 days Active Cymbalta 30 MG Orally Twice a day 1 capsule 12h Active Tramadol HCl 50 mg Orally 3 times a day 1 tablet as needed 8h 28 days Active Movantik 25 MG Orally Once a day 1 tablet in the morning 24h Dec, March, 30 day(s) Active Cymbalta 60 MG Orally Once a day 1 capsule 24h Active Meloxicam 7.5 MG Orally Once a day 1 tablet 24h Jan, 90 days Active Lumbar Back Brace/Support Pad Back stabilizer as directed Dec, lifetime Active Baclofen 20 MG Orally Three times a day 1 tablet with food or milk 8h Jun, 90 days Active RESULTS No Results PROCEDURES Procedure Date Ordered Related Diagnosis Body Site Office Visit, Est Pt., Level 3 Dec 24, 2016 IMMUNIZATIONS No Known Immunizations
--- OUTSIDE RECORDS SUMMARY | 2018-11-08 13:25 | XMS REPORT ---
Author Author SHERICE ANNAMARIE [facility] Address [address] [place] [address] Care Team Providers Care Culture Media Laboratory Assistant Name Role Phone ANNAMARIE SMILEY Unavailable PROBLEMS Type Condition ICD9-CM Code [id number] Code Onset Dates Condition Status SNOMED Code Problem Gastroesophageal reflux disease without esophagitis K21.9 Active 196087004 Problem Chronic pain syndrome G89.4 Active 592005712 Problem Degenerative disc disease, cervical M50.30 Active 24379273 Problem Chronic prescription opiate use Z79.891 Active 515806957 Problem Severe episode of recurrent major depressive disorder, without psychotic features F33.2 Active 43902175 Problem Degenerative disc disease, lumbar M51.36 Active 04077480 Problem Myoclonic jerking G25.3 Active 18058051 Problem Other chronic pain G89.29 Active 79427284 Problem Periodic limb movement disorder G47.61 Active 648610146 Problem Other constipation K59.09 Active 349912949643481 Problem Sacrococcygeal disorders, not elsewhere classified M53.3 Active 039401053 Problem Essential hypertension I10 Active 20587518 ALLERGIES No Information ENCOUNTERS Encounter Location Date Diagnosis [id number] [place] [address] 44984- 8[address] March, Chronic pain syndrome G89.4 [facility] [place] [id number] [place] [address] 58322- 4450 Feb, Essential hypertension I10 ; Chronic pain syndrome G89.4 ; Periodic limb movement disorder G47.61 ; Myoclonic jerking G25.3 and Pain of left great toe M79.675 [facility] [place] [id number] [place] [address] 73049- 1100 Feb, [place] [id number] [place] [address] 41133- 8351 Feb, Chronic pain syndrome G89.4 [facility] [place] [id number] [place] [address] 39747- 2777 Dec, Chronic pain syndrome G89.4 [facility] [place] [id number] [place] [address] 69540- 1532 Nov, [facility] [place] [id number] [place] [address] 99197- 2586 Nov, Neck pain M54.2 ; Left hand weakness R29.898 ; Degenerative disc disease, cervical M50.30 ; Chronic prescription opiate use Z79.891 and Myoclonic jerking G25.3 [id number] [place] [address] 97619- 0827 Nov, Chronic pain syndrome G89.4 [place] [id number] [place] [address] 07119- 2989 Sep, Chronic pain syndrome G89.4 [facility] [place] [id number] [place] [address] 21704- 8739 Sep, Acute non-recurrent frontal sinusitis J01.10 [place] [id number] [place] [address] 62174- 0158 Aug, Chronic pain syndrome G89.4 [facility] [place] [id number] [place] [address] 26186- 4144 Jul, Other chronic pain G89.29 ; Sacrococcygeal disorders, not elsewhere classified M53.3 ; Essential hypertension I10 ; Other constipation K59.09 and Chronic pain syndrome G89.4 [facility] [place] [id number] [place] [address] 30002- 6618 Jun, Chronic pain syndrome G89.4 [facility] [place] [id number] [place] [address] 85787- 9782 May, Chronic pain syndrome G89.4 [facility] [place] [id number] [place] [address] 81742- 1810 Apr, Chest pain, unspecified type R07.9 [place] [address] 36[address]- [address] Apr, Chronic prescription opiate use Z79.891 ; Other constipation K59.09 ; Chest pain, unspecified type R07.9 ; Palpitations R00.2 and Essential hypertension I10 [address] [address]- 268[address] Apr, Chronic pain syndrome G89.4 [place] [address] 67551- [address] March, Chronic pain syndrome G89.4 [facility] [address] [address] Feb, Acute non-recurrent frontal sinusitis J01.10 and Difficulty urinating R39.[address] 04063- [address]396 Jan, [place] [address] 77780- 4611 Jan, Chronic pain syndrome G89.4 [facility] [address] [address] Jan, Bronchitis J40 and OME (otitis media with effusion), bilateral H65.[address] 18918- 8042 Dec, Hematochezia K92.1 ; Periodic limb movement disorder G47.61 ; Chronic pain syndrome G89.4 ; Degenerative disc disease, cervical M50.30 ; Degenerative disc disease, lumbar M51.36 ; Other constipation K59.09 and SI joint arthritis M46.[address] [address]- [address] Oct, Chronic pain syndrome G89.[address] 62016- 1169 Oct, Chronic pain syndrome G89.4 ; Other constipation K59.09 ; Chronic prescription opiate use Z79.891 ; Degenerative disc disease, lumbar M51.36 ; Degenerative disc disease, cervical M50.30 ; Severe episode of recurrent major depressive disorder, without psychotic features F33.2 and Periodic limb movement disorder G47.61 [place] [place] [address] 53304- 2526 Sep, [place] [id number] [place] [address] 02427- 8227 Jul, Chronic prescription opiate use Z79.891 ; Chronic pain syndrome G89.4 ; Adverse effect of other opioids, initial encounter T40.2X5A and Other constipation K59.09 [id number] [place] [address] 50315- 1985 Jun, [place] [id number] [place] [address] 93504- 9636 May, [place] [id number] [place] [address] 09288- 3960 Apr, Chronic pain syndrome G89.4 ; Degenerative disc disease, cervical M50.30 ; Degenerative disc disease, lumbar M51.36 ; Gastroesophageal reflux disease without esophagitis K21.9 ; Severe episode of recurrent major depressive disorder, without psychotic features F33.2 ; Screening, lipid Z13.220 ; Urinary hesitancy R39.11 and Chronic prescription opiate use Z79.891 [address] [id number] [place] [address] 76222- 8435 Apr, IMMUNIZATIONS No Known Immunizations SOCIAL HISTORY [...]
--- OUTSIDE RECORDS SUMMARY | 2018-11-08 13:25 | XMS REPORT ---
Author ANNAMARIE Moraes [facility] e[employer] Address Unknown Phone Unavailable Care Team Providers Care Court Stenographer Name Role Phone ANNAMARIE SMILEY CP Unavailable Allergies No Known Allergies Problems Problem Type Condition Code Onset Dates Condition Status Problem Degenerative disc disease, cervical M50.30 Active Problem Degenerative disc disease, lumbar M51.36 Active Problem Chronic pain syndrome G89.4 Active Problem Chronic prescription opiate use Z79.891 Active Problem Gastroesophageal reflux disease without esophagitis K21.9 Active Problem Severe episode of recurrent major depressive disorder, without psychotic features F33.2 Active Medications No Known Medications Results No Known Results Summary Purpose eClinicalWorks Submission
--- OUTSIDE RECORDS SUMMARY | 2018-11-08 13:25 | XMS REPORT ---
Author ANNAMARIE Moraes [facility] e[employer] Address Unknown Phone Unavailable Care Team Providers Care Double Bass Player Name Role Phone ANNAMARIE SMILEY CP Unavailable [...] disorder, without psychotic features F33.2 Active Medications Medication Code System Code Instructions Start Date End Date Status Dosage Tramadol HCl [facility] [place] [address]-79 50 mg Orally 3 times a day 1 tablet as needed Baclofen [facility] [place] [address]-38 10 mg Orally Three times a day 1 1/2 tablet with food or milk Results No Known Results Summary Purpose eClinicalWorks Submission
--- OUTSIDE RECORDS SUMMARY | 2018-11-08 13:25 | XMS REPORT ---
Author CASTRO Hilliard [facility] Address [address] [place] [address] Care Team Providers Care Customs Verifier Name Role Phone CASTRO MORRIS Unavailable PROBLEMS Type Condition ICD9-CM Code [id number] Code Onset Dates Condition Status SNOMED Code Problem Severe episode of recurrent major depressive disorder, without psychotic features F33.2 Active 53016378 Problem Degenerative disc disease, cervical M50.30 Active 38726443 Problem Gastroesophageal reflux disease without esophagitis K21.9 Active 647945183 Problem Degenerative disc disease, lumbar M51.36 Active 88168621 Problem Chronic prescription opiate use Z79.891 Active 927376025 Problem Other chronic pain G89.29 Active 01774814 Problem Sacrococcygeal disorders, not elsewhere classified M53.3 Active 759753722 Problem Other constipation K59.09 Active 082548867137692 Problem Chronic pain syndrome G89.4 Active 595540673 Problem Essential hypertension I10 Active 87940286 Problem Periodic limb movement disorder G47.61 Active 553122243 ALLERGIES Substance Reaction Event Type Date Status Lyrica Unknown Drug Allergy Jan, Active tegaderm Unknown Non Drug Allergy Jan, Active SOCIAL HISTORY Never Assessed PLAN OF CARE Activity Details Follow Up prn Reason: VITAL SIGNS Height 69 in 2017-02-02 Weight 179.0 lbs 2017-02-02 Temperature 98.2 degrees Fahrenheit 2017-02-02 Heart Rate 84 bpm 2017-02-02 Respiratory Rate 20 2017-02-02 BMI 26.43 kg/m2 2017-02-02 Blood pressure systolic 136 mmHg 2017-02-02 Blood pressure diastolic 78 mmHg 2017-02-02 MEDICATIONS Medication Instructions Dosage Frequency Start Date End Date Duration Status Cymbalta 30 MG Orally Twice a day 1 capsule 12h Active Zithromax Z-Jun 250 MG Orally Once a day 2 tablets on the first day, then 1 tablet daily for 4 days 24h Jan, Jan, 5 day(s) Active Meloxicam 7.5 MG Orally Once a day 1 tablet 24h Jan, 90 days Active PredniSONE 20 mg Orally Once a day 2 tablet 24h Jan, Jan, 05 days Active Cymbalta 60 MG Orally Once a day 1 capsule 24h Active Tizanidine HCl 4 MG Orally every 6 hrs 1 tablet as needed 6h Jan, 90 days Active Tramadol HCl 50 mg Orally 3 times a day 1 tablet as needed 8h 28 days Active Movantik 25 MG Orally Once a day 1 tablet in the morning 24h Dec, March, 30 day(s) Active Gabapentin 600 MG Orally Three times a day 1 capsule 8h 90 days Active Baclofen 20 MG Orally Three times a day 1 tablet with food or milk 8h Jun, 90 days Active Lumbar Back Brace/Support Pad Back stabilizer as directed Dec, lifetime Active RESULTS No Results PROCEDURES No Known [...]
[2018-11-08] MEDS ORDERED: LACTATED RINGERS 1,000 ML IV ONE (13:26)
--- OUTSIDE RECORDS SUMMARY | 2018-11-08 13:26 | XMS REPORT ---
Author Author SHERICE ANNAMARIE [facility] Address [address] [place] [address] Care Team Providers Care Medical Instrument Technician Name Role Phone ANNAMARIE SMILEY Unavailable PROBLEMS Type Condition ICD9-CM Code TAV56-OJ Code Onset Dates Condition Status SNOMED Code Problem Gastroesophageal reflux disease without esophagitis K21.9 Active 454519087 Problem Chronic pain syndrome G89.4 Active 641171540 Problem Degenerative disc disease, cervical M50.30 Active 61514785 Problem Chronic prescription opiate use Z79.891 Active 269465641 Problem Severe episode of recurrent major depressive disorder, without psychotic features F33.2 Active 36250124 Problem Degenerative disc disease, lumbar M51.36 Active 64759629 Problem Myoclonic jerking G25.3 Active 54757771 Problem Other chronic pain G89.29 Active 05629565 Problem Periodic limb movement disorder G47.61 Active 928998509 Problem Other constipation K59.09 Active [id number] Problem Sacrococcygeal disorders, not elsewhere classified M53.3 Active 777752760 Problem Essential hypertension I10 Active 70617962 ALLERGIES Substance Reaction Event Type Date Status Lyrica Unknown Drug Allergy Apr, Active tegaderm Unknown Non Drug Allergy Apr, Active ENCOUNTERS Encounter Location Date Diagnosis [facility] [id number] [address] Feb, [facility] [id number] [address] Dec, Chronic pain syndrome G89.4 [facility] [address] [place] [address] Nov, [facility] [id number] [address] Nov, Neck pain M54.2 ; Left hand weakness R29.898 ; Degenerative disc disease, cervical M50.30 ; Chronic prescription opiate use Z79.891 and Myoclonic jerking G25.3 [address] [address] [address] Nov, Chronic pain syndrome G89.4 [place] [id number] [place] [address] Sep, Chronic pain syndrome G89.4 [place] [address] [address] Sep, Acute non-recurrent frontal sinusitis J01.10 [place] [address] [address] Aug, Chronic pain syndrome G89.4 [place] [address] [address] Jul, Other chronic pain G89.29 ; Sacrococcygeal disorders, not elsewhere classified M53.3 ; Essential hypertension I10 ; Other constipation K59.09 and Chronic pain syndrome G89.4 [place] [id number] [place] [address] Jun, Chronic pain syndrome G89.4 [place] [id number] [place] [address] May, Chronic pain syndrome G89.4 [place] [address] [address] Apr, Chest pain, unspecified type R07.9 [address] [id number] [place] [address] Apr, Chronic prescription opiate use Z79.891 ; Other constipation K59.09 ; Chest pain, unspecified type R07.9 ; Palpitations R00.2 and Essential hypertension I10 [address] [id number] [place] [address] Apr, Chronic pain syndrome G89.4 [place] [id number] [place] [address] March, Chronic pain syndrome G89.4 [facility] [address] [address] Feb, Acute non-recurrent frontal sinusitis J01.10 and Difficulty urinating R39.[address] [address] Jan, [place] [address] [address] Jan, Chronic pain syndrome G89.4 [facility] [address] [address] Jan, Bronchitis J40 and OME (otitis media with effusion), bilateral H65.[address] [address] Dec, Hematochezia K92.1 ; Periodic limb movement disorder G47.61 ; Chronic pain syndrome G89.4 ; Degenerative disc disease, cervical M50.30 ; Degenerative disc disease, lumbar M51.36 ; Other constipation K59.09 and SI joint arthritis M46.98 [id number] [place] [address] Oct, Chronic pain syndrome G89.4 [place] [address] [address] Oct, Chronic pain syndrome G89.4 ; Other constipation K59.09 ; Chronic prescription opiate use Z79.891 ; Degenerative disc disease, lumbar M51.36 ; Degenerative disc disease, cervical M50.30 ; Severe episode of recurrent major depressive disorder, without psychotic features F33.2 and Periodic limb movement disorder G47.61 [place] [id number] [place] [address] Sep, [address] [address] Jul, Chronic prescription opiate use Z79.891 ; Chronic pain syndrome G89.4 ; Adverse effect of other opioids, initial encounter T40.2X5A and Other constipation K59.09 [address] [id number] [address] Jun, [place] [address] [address] May, [address] [id number] [place] [address] Apr, Chronic pain syndrome G89.4 ; Degenerative disc disease, cervical M50.30 ; Degenerative disc disease, lumbar M51.36 ; Gastroesophageal reflux disease without esophagitis K21.9 ; Severe episode of recurrent major depressive disorder, without psychotic features F33.2 ; Screening, lipid Z13.220 ; Urinary hesitancy R39.11 and Chronic prescription opiate use Z79.891 [id number] [address] Apr, IMMUNIZATIONS No Known Immunizations SOCIAL HISTORY Never Assessed REASON FOR VISIT Pain management (chronic)--tcuppettRN, -Was sick for past few months. Continues with night sweats at times, -Constipation. Nothing is working. Has been using castor oil. Never had colonoscopy done back in December, -Reports feels like his heart has been fluttering at times recently and having dizziness. Blood pressure has been running high at times. PLAN OF CARE Activity Details Follow Up 4 Weeks Reason:HTN VITAL SIGNS Height 69 in 2017-05-11 Weight 182.4 lbs 2017-05-11 Temperature 97.6 degrees Fahrenheit 2017-05-11 Heart Rate 86 bpm 2017-05-11 Respiratory Rate 22 2017-05-11 BMI 26.93 kg/m2 2017-05-11 Blood pressure systolic 152 mmHg 2017-05-11 Blood pressure diastolic 98 mmHg 2017-05-11 MEDICATIONS Medication Instructions Dosage Frequency Start Date End Date Duration Status Baclofen 20 MG Orally Three times a day 1 tablet with food or milk 8h 2 Jun, 2017 90 days Active Cymbalta 30 MG Orally Twice a day 1 capsule 12h Active Lumbar Back Brace/Support Pad Back stabilizer as directed Dec, lifetime Active [place] Oil 100 % Active Gabapentin 600 MG Orally Three times a day 1 capsule 8h 90 Active Lisinopril 20 mg Orally Once a day 1 tablet 24h Apr, 30 day(s) Active Fluticasone Propionate 50 MCG/ACT Nasally Once a day 1 spray in each nostril 24h Feb, 30 day(s) Active Tramadol HCl 50 mg Orally 3 times a day 1 tablet as needed 8h 28 days Active Tizanidine HCl 4 MG Orally every 6 hrs 1 tablet as needed 6h 90 Active Cymbalta 60 MG Orally Once a day 1 capsule 24h Active Meloxicam 7.5 TAKE 1 TABLET BY MOUTH ONCE DAILY 30 Active Movantik 25 MG Orally Once a day 1 tablet in the morning 24h 30 Active RESULTS Name Result Date Reference Range AMERITOX 2017-05-11 PROCEDURES Procedure Date Ordered Result Body Site No Charge May 11, 2017 INSTRUCTIONS MEDICATIONS ADMINISTERED No Known Medications [...]
--- OUTSIDE RECORDS SUMMARY | 2018-11-08 13:26 | XMS REPORT ---
Author Author SHERICE ANNAMARIE [facility] Address [address] [place] [address] Care Team Providers Care Instructor Extension Work Name Role Phone CHAGO SMILEYY Unavailable PROBLEMS Type Condition ICD9-CM Code YVL44-ES Code Onset Dates Condition Status SNOMED Code Problem Gastroesophageal reflux disease without esophagitis K21.9 Active 639009222 Problem Chronic pain syndrome G89.4 Active 983826306 Problem Degenerative disc disease, cervical M50.30 Active 29752946 Problem Chronic prescription opiate use Z79.891 Active 158607145 Problem Severe episode of recurrent major depressive disorder, without psychotic features F33.2 Active 70267066 Problem Degenerative disc disease, lumbar M51.36 Active 99195930 Problem Myoclonic jerking G25.3 Active 72983222 Problem Other chronic pain G89.29 Active 42577803 Problem Periodic limb movement disorder G47.61 Active 850377490 Problem Other constipation K59.09 Active 336891286704686 Problem Sacrococcygeal disorders, not elsewhere classified M53.3 Active 677944965 Problem Essential hypertension I10 Active 58148302 ALLERGIES No Information ENCOUNTERS Encounter Location Date Diagnosis [address], [place] [address] Feb, [address] [id number] [place] [address] Dec, Chronic pain syndrome G89.4 [id number] [place] [address]- [address] Nov, [place] [id number] [place] [address] Nov, Neck pain M54.2 ; Left hand weakness R29.898 ; Degenerative disc disease, cervical M50.30 ; Chronic prescription opiate use Z79.891 and Myoclonic jerking G25.3 [place] [id number] [place] [address]- [address] Nov, Chronic pain syndrome G89.4 [facility] [id number] [place] [address]- 8843 Sep, Chronic pain syndrome G89.4 [place] [place] [id number] [place] [address] 14[address]- [address]158 Sep, Acute non-recurrent frontal sinusitis J01.10 [address] [place] [id number] [place] [address]- [address] Aug, Chronic pain syndrome G89.4 [place] [id number] [place] [address]- [address] Jul, Other chronic pain G89.29 ; Sacrococcygeal disorders, not elsewhere classified M53.3 ; Essential hypertension I10 ; Other constipation K59.09 and Chronic pain syndrome G89.4 [place] [id number] [place] [address]- 89[address] Jun, Chronic pain syndrome G89.4 [place] [id number] [place] [address]- [address] May, Chronic pain syndrome G89.4 [place] [id number] [place] [address]- 27[address] Apr, Chest pain, unspecified type R07.9 [place] [place] [id number] [place] [address]- [address] Apr, Chronic prescription opiate use Z79.891 ; Other constipation K59.09 ; Chest pain, unspecified type R07.9 ; Palpitations R00.2 and Essential hypertension I10 [id number] [place] [address] 46233- 9388 Apr, Chronic pain syndrome G89.4 [id number] [place] [address]- [address] March, Chronic pain syndrome G89.4 [facility] [address] [place] [address] Feb, Acute non-recurrent frontal sinusitis J01.10 and Difficulty urinating R39.198 [facility] [address] [place] [address]- 1980 Jan, [facility] [address] [address] Jan, Chronic pain syndrome G89.4 [facility] [id number] [place] [address] Jan, Bronchitis J40 and OME (otitis media with effusion), bilateral H65.93 [facility] [id number] [place] [address] 41585- 9584 Dec, Hematochezia K92.1 ; Periodic limb movement disorder G47.61 ; Chronic pain syndrome G89.4 ; Degenerative disc disease, cervical M50.30 ; Degenerative disc disease, lumbar M51.36 ; Other constipation K59.09 and SI joint arthritis M46.98 [id number] [place] [address]- [address] Oct, Chronic pain syndrome G89.4 [facility] [id number] [place] [address] 6[address]39- [address] 08 Oct, 2016 Chronic pain syndrome G89.4 ; Other constipation K59.09 ; Chronic prescription opiate use Z79.891 ; Degenerative disc disease, lumbar M51.36 ; Degenerative disc disease, cervical M50.30 ; Severe episode of recurrent major depressive disorder, without psychotic features F33.2 and Periodic limb movement disorder G47.61 [place] [id number] [place] [address] Sep, [facility] [id number] [place] [address]- [address] 20 Jul, 2016 Chronic prescription opiate use Z79.891 ; Chronic pain syndrome G89.4 ; Adverse effect of other opioids, initial encounter T40.2X5A and Other constipation K59.09 [id number], [place] [address] Jun, [place], [place] [address] May, [place] [id number], [place] [address] Apr, Chronic pain syndrome G89.4 ; Degenerative disc disease, cervical M50.30 ; Degenerative disc disease, lumbar M51.36 ; Gastroesophageal reflux disease without esophagitis K21.9 ; Severe episode of recurrent major depressive disorder, without psychotic features F33.2 ; Screening, lipid Z13.220 ; Urinary hesitancy R39.11 and Chronic prescription opiate use Z79.891 [place], [place] [address] Apr, IMMUNIZATIONS No Known Immunizations SOCIAL HISTORY Never Assessed REASON FOR VISIT PLAN OF CARE VITAL SIGNS MEDICATIONS Unknown [...]
--- OUTSIDE RECORDS SUMMARY | 2018-11-08 13:26 | XMS REPORT | Continuity of Care Document ---
Author Author [facility] Organization [facility] Address Unknown Phone Unavailable Allergies There is no data. Medications Medication Packaging Start Date Stop Date Route Dosage Sig ULTRAM ORAL 07/11/2015 11/08/2015 90 three times each day TIZANIDINE HCL ORAL 07/11/2015 11/08/2015 30 at bed- time CYMBALTA ORAL 10/10/2015 11/09/2015 30 daily Problems Date Dx Coded Attending Type Code Diagnosis Diagnosed By 05/16/2015 MENDEL HARDEN MD ([facility]) Ot 715.36 05/16/2015 MENDEL HARDEN MD ([facility]) Ot 724.5 05/16/2015 MENDEL HARDEN MD (DD) Ot V70.3 12/19/2017 SHERICE LI, ANNAMARIE Mccann Ot M54.2 [facility] Procedures There is no data. Results Test Result Range Prostate-Specific Ag, Serum - 02/21/17 15:20 Prostate Specific Ag, Serum 0.9 ng/mL 0.0-4.0 CBC With Differential/Platelet - 08/19/17 11:24 WBC 5.6 x10E3/uL 3.4-10.8 RBC 4.67 x10E6/uL 4.14-5.80 Hemoglobin 13.6 g/dL 12.6-17.7 Hematocrit 41.0 % 37.5-51.0 MCV 88 fL 79-97 MCH 29.1 pg 26.6-33.0 MCHC 33.2 g/dL 31.5-35.7 RDW 13.6 % 12.3-15.4 Platelets 283 x10E3/uL 150-379 Neutrophils 58 % Lymphs 31 % Monocytes 8 % Eos 3 % Basos 0 % Neutrophils (Absolute) 3.2 x10E3/uL 1.4-7.0 Lymphs (Absolute) 1.8 x10E3/uL 0.7-3.1 Monocytes(Absolute) 0.5 x10E3/uL 0.1-0.9 Eos (Absolute) 0.2 x10E3/uL 0.0-0.4 Baso (Absolute) 0.0 x10E3/uL 0.0-0.2 Immature Granulocytes 0 % Immature Grans (Abs) 0.0 x10E3/uL 0.0-0.1 Comp. Metabolic Panel (14) - 08/19/17 11:24 Glucose, Serum 83 mg/dL 65-99 BUN 12 mg/dL 6-24 Creatinine, Serum 0.87 mg/dL 0.76-1.27 eGFR If NonAfricn Am 100 mL/min/1.73 >59 eGFR If Africn Am 116 mL/min/1.73 >59 BUN/Creatinine Ratio 14 9-20 Sodium, Serum 140 mmol/L 134-144 Potassium, Serum 4.2 mmol/L 3.5-5.2 Chloride, Serum 100 mmol/L 96-106 Carbon Dioxide, Total 26 mmol/L 18-29 Calcium, Serum 9.1 mg/dL 8.7-10.2 Protein, Total, Serum 6.7 g/dL 6.0-8.5 Albumin, Serum 4.7 g/dL 3.5-5.5 Globulin, Total 2.0 g/dL 1.5-4.5 A/G Ratio 2.4 1.2-2.2 Bilirubin, Total 0.2 mg/dL 0.0-1.2 Alkaline Phosphatase, S 55 IU/L 39-117 AST (SGOT) 23 IU/L 0-40 ALT (SGPT) 21 IU/L 0-44 Lipid Panel - 08/19/17 11:24 Cholesterol, Total 173 mg/dL 100-199 Triglycerides 51 mg/dL 0-149 HDL Cholesterol 58 mg/dL >39 VLDL Cholesterol Hardy 10 mg/dL 5-40 LDL Cholesterol Calc 105 mg/dL 0-99 CMP - 08/19/17 11:24 Glucose, Serum 83 mg/dL 65-99 BUN 12 mg/dL 6-24 Creatinine, Serum 0.87 mg/dL 0.76-1.27 eGFR If NonAfricn Am 100 mL/min/1.73 >59 eGFR If Africn Am 116 mL/min/1.73 >59 BUN/Creatinine Ratio 14 9-20 Sodium, Serum 140 mmol/L 134-144 Potassium, Serum 4.2 mmol/L 3.5-5.2 Chloride, Serum 100 mmol/L 96-106 Carbon Dioxide, Total 26 mmol/L 18-29 Calcium, Serum 9.1 mg/dL 8.7-10.2 Protein, Total, Serum 6.7 g/dL 6.0-8.5 Albumin, Serum 4.7 g/dL 3.5-5.5 Globulin, Total 2.0 g/dL 1.5-4.5 A/G Ratio 2.4 1.2-2.2 Bilirubin, Total 0.2 mg/dL 0.0-1.2 Alkaline Phosphatase, S 55 IU/L 39-117 AST (SGOT) 23 IU/L 0-40 ALT (SGPT) 21 IU/L 0-44 LIPID PANEL - 10/09/18 10:18 CHOLESTEROL, TOTAL 154 mg/dL <200 HDL CHOLESTEROL 48 mg/dL >40 TRIGLYCERIDES 87 mg/dL <150 LDL-CHOLESTEROL 88 mg/dL (calc) NRG CHOL/HDLC RATIO 3.2 (calc) <5.0 NON HDL CHOLESTEROL 106 mg/dL (calc) <130 CMP - 10/09/18 10:18 GLUCOSE 96 mg/dL 65-99 UREA NITROGEN (BUN) 13 mg/dL 7-25 CREATININE 0.88 mg/dL 0.70-1.33 eGFR NON-AFR. MONTENEGRIN 99 mL/min/1.73m2 > OR=60 eGFR 114 mL/min/1.73m2 > OR=60 BUN/CREATININE RATIO NOT APPLICABLE (calc) 6-22 SODIUM 140 mmol/L 135-146 POTASSIUM 4.4 mmol/L 3.5-5.3 CHLORIDE 103 mmol/L 98-110 CARBON DIOXIDE 31 mmol/L 20-32 CALCIUM 9.0 mg/dL 8.6-10.3 PROTEIN, TOTAL 6.6 g/dL 6.1-8.1 ALBUMIN 4.2 g/dL 3.6-5.1 GLOBULIN 2.4 g/dL (calc) 1.9-3.7 ALBUMIN/GLOBULIN RATIO 1.8 (calc) 1.0-2.5 BILIRUBIN, TOTAL 0.4 mg/dL 0.2-1.2 ALKALINE PHOSPHATASE 52 U/L 40-115 AST 15 U/L 10-35 ALT 18 U/L 9-46 CBC - 10/09/18 10:18 WHITE BLOOD CELL COUNT 4.5 Thousand/uL 3.8-10.8 RED BLOOD CELL COUNT 4.44 Million/uL 4.20-5.80 HEMOGLOBIN 13.1 g/dL 13.2-17.1 HEMATOCRIT 39.2 % 38.5-50.0 MCV 88.3 fL 80.0-100.0 MCH 29.5 pg 27.0-33.0 MCHC 33.4 g/dL 32.0-36.0 RDW 12.5 % 11.0-15.0 PLATELET COUNT 339 Thousand/uL 140-400 MPV 8.8 fL 7.5-12.5 ABSOLUTE NEUTROPHILS 2705 cells/uL 1180-8522 ABSOLUTE LYMPHOCYTES 1382 cells/uL 850-3900 ABSOLUTE MONOCYTES 302 cells/uL 200-950 ABSOLUTE EOSINOPHILS 81 cells/uL 15-500 ABSOLUTE BASOPHILS 32 cells/uL 0-200 NEUTROPHILS 60.1 % NRG LYMPHOCYTES 30.7 % NRG MONOCYTES 6.7 % NRG EOSINOPHILS 1.8 % NRG BASOPHILS 0.7 % NRG PDM - PAIN MGMT (PROFILE 3 WITH CONFIRMATION) - 10/20/18 14:07 Prescribed Drug 1 Tramadol NRG Creatinine 173.8 mg/dL > or=20.0 pH 8.02 4.5 - 9.0 Oxidant NEGATIVE mcg/mL <200 Amphetamines NEGATIVE ng/mL <500 medMATCH Amphetamines CONSISTENT NRG Benzodiazepines NEGATIVE ng/mL <100 medMATCH Benzodiazepines CONSISTENT NRG Marijuana Metabolite NEGATIVE ng/mL <20 medMATCH Marijuana Metab CONSISTENT NRG Cocaine Metabolite NEGATIVE ng/mL <150 medMATCH Cocaine Metab CONSISTENT NRG Opiates NEGATIVE ng/mL <100 medMATCH Opiates CONSISTENT NRG Oxycodone NEGATIVE ng/mL <100 medMATCH Oxycodone CONSISTENT NRG COMMENT NRG Encounters ACCT No. Visit Date/Time Discharge Status Pt. Type Provider Facility Loc./Unit Complaint [id number] 12/15/2017 11:38:00 12/15/2017 23:59:59 CLS Outpatient ANNAMARIE SMILEY MD [facility] RAD M54.2 NECK PAIN [id number] 07/13/2017 13:30:00 07/13/2017 23:59:59 CLS Preadmit ANNAMARIE SMILEY MD [facility] CARD R07.9 [id number] 05/25/2017 11:45:00 05/25/2017 23:59:59 CLS Preadmit ANNAMARIE SMILEY MD [facility] CARD R00.2 PALPITATIONS [id number] 05/09/2015 13:56:00 05/09/2015 23:59:59 CLS Outpatient MENEDL HARDEN MD ([facility]U) [facility] RAD [id number] 11/08/2018 15:40:00 PEN Preadmit GLORIA BURTON DO [facility] ENDO GASTRITIS/HX OF PLOYPS/FAM HX COLON CA [id number] 12/29/2015 08:59:56 Document Registration [id number] 02/22/2017 10:11:00 Document Registration [id number] 08/20/2017 09:10:00 Document Registration [email or web address] 05/10/2015 04:29:07 ACT Document Registration [id number] 10/20/2018 13:20:00 10/20/2018 23:59:59 CLS Outpatient ANNAMARIE SMILEY MD [facility] [id number] 10/20/2018 13:20:00 Document Registration [id number] 10/09/2018 10:00:00 Document Registration [id number] 08/19/2017 10:40:00 Document Registration
[2018-11-08] MEDS ORDERED: LACTATED RINGERS 1,000 ML IV STA (13:30)
[2018-11-08] MEDS ORDERED: HURRICAINE EXT TUBE (BENZOCAINE) XX PRN (13:30)
[2018-11-08] MEDS ORDERED: proPOfol 200 MG/20 ML (DIPRIVAN) VIAL IV ONE (13:39)
[2018-11-08] MEDS ORDERED: MIDAZOLAM 2 MG/2 ML (VERSED) VIAL ONE (13:40)
--- NOTE | 2018-11-08 13:43 | Progress Note-Pre Operative ---
Pre-Operative Progress Note H&P Reviewed The H&P was reviewed, patient examined and no changes noted. Time Seen by Provider: 12:38 Date H&P Reviewed: Nov 08, 2018 Time H&P Reviewed: 12:38 Pre-Operative Diagnosis: Dysphagia, Anemia, Personal hx of colon polyps GLORIA BURTON DO Nov 08, 2018 13:43
[2018-11-08 13:46] VITALS: BP 125/88
[2018-11-08] MEDS ORDERED: HURRICAINE EXT TUBE (BENZOCAINE) ONE (14:14)
--- NOTE | 2018-11-08 15:00 | Progress Note-Post Operative ---
Post-Operative Progess Note Surgeon (s)/Pool Lifeguard (s) Surgeon GLORIA BURTON DO Pool Lifeguard: none Pre-Operative Diagnosis Dysphagia, Anemia, Personal hx of colon polyps Post-Operative Diagnosis Gastritis Colon Polyps Internal hemorrhoids Procedure & Operative Findings Date of Procedure 11/08/18 Procedure Performed/Findings EGD with bx Colon with bx Anesthesia Type IV sedation by anesthesia Estimated Blood Loss Estimated blood loss (mL): scant Specimens/Packing Specimens Removed antral bx body of stomach bx Colon polyp bx x 2 (ascending and descending colon) GLORIA BURTON DO Nov 08, 2018 15:00
--- NOTE | 2018-11-08 15:02 | Endoscopy Discharge Instruct ---
Endo Procedure/Findings Findings 1.: Gastritis 2.: Polyp 3.: Internal Hemorrhoids Discharge Instructions - Activity: You might feel a little sleepy until tomorrow. This is due to the medicine you received to relax you. Until tomorrow, you should: NOT drive a car, operate machinery or power tools. NOT drink any alcoholic beverages. NOT make any important decisions or sign importortant papers. Do not return to work until tomorrow, unless otherwise instructed. Resume previous activities tomorrow. Diet: Start by taking liquids. If you tolerate liquids, advance to solid food. make an appointment for one week Notify Physician - If you experience excessive bleeding, unusual abdominal pain, fever, or chest pain, contact your doctor immediately. Follow-Up: - I have received and understand the above instructions and will call my doctor if I have any further questions. Patient Signature Date Nurse Signature Other (Relationship) GOLRIA BURTON DO Nov 08, 2018 15:01
--- NOTE | 2018-11-08 15:08 | Anesthesia-General Post-Op ---
MAC Patient Condition Mental Status/LOC: Same as Preop Cardiovascular: Satisfactory Nausea/Vomiting: Absent Respiratory: Satisfactory Pain: Controlled Complications: Absent Post Op Complications Complications None Follow Up Care/Instructions Patient Instructions None needed. Anesthesiology Discharge Order Discharge Order Patient is doing well, no complaints, stable vital signs, no apparent adverse anesthesia problems. No complications reported per nursing. JANINA FRANKEL CRNA Nov 08, 2018 15:08
[2018-11-08 15:15] VITALS: BP 124/74
[2018-11-08 15:45] VITALS: BP 125/79
[2018-11-08 15:55] VITALS: BP 125/79
--- NOTE | 2018-11-10 00:42 | OPERATIVE REPORT ---
DATE OF SERVICE: 11/08/2018 PREOPERATIVE DIAGNOSES: 1. Dysphagia. 2. Anemia. 3. Personal history of colon polyps. POSTOPERATIVE DIAGNOSES: 1. Gastritis. 2. Colon polyps. 3. Internal hemorrhoids. 4. Anemia. 5. Dysphagia. PROCEDURES PERFORMED: 1. EGD with biopsy. 2. Colonoscopy with cold biopsy. SURGEON: Prabhjot Alford DO AIR TRAFFIC CONTROL SPECIALIST: None. ANESTHESIA: IV sedation by anesthesia. SPECIMENS: 1. Biopsy from the antrum, one biopsy from the body of the stomach. 2. Biopsy of two polyps; one from the ascending colon, one from the descending colon. INDICATION FOR PROCEDURE: The patient is a 53-year-old male with personal history of colon polyps, got a little bit of anemia, and has been having trouble swallowing lately. He has an EGD and a colonoscopy. FINDINGS: The patient had mild gastritis, but no other obvious signs or reasons for dysphagia. He also had two polyps, one in the ascending colon, one in descending colon, and some internal hemorrhoids. PROCEDURE NOTE: After informed consent was obtained, the patient was brought to the endoscopy suite, placed on the bed in left lateral decubitus position. He was administered IV sedation by the anesthesiologist who then monitored his vitals the entire time, heart rate, blood pressure and pulse ox. Started with the EGD, pushed the scope down the mouth through the esophagus into the stomach. I saw some mild gastritis, elected to do biopsy at the antrum and then one in the body of the stomach. Pushed into the duodenum, this looked okay, took a picture and then slowly pulled the scope back, retroflexed. Did not appear to be hiatal hernia, looked at the GE junction, looked okay and then pulled the scope up the stomach and into the esophagus and then out of the mouth. Switched scopes, switched gloves and went below to start the colonoscopy, inserted the scope, pushed all the way about 150 cm, able to get to the cecum, took a picture of the appendiceal orifice, noted the ileocecal valve and then slowly withdrew the scope insufflating to look circumferentially at the pizano, looking at the cecum and up into the ascending colon. In the ascending colon, I saw small flat polyp, did a cold biopsy of this and then continued up to the hepatic flexure, then down the transverse colon, the splenic flexure, into the descending colon. In the descending colon, I saw another small flat polyp, did another cold biopsy and then continued down the descending colon into the sigmoid and then down into the rectum and then into the rectal vault. Retroflexed in rectal vault, saw some very minimal internal hemorrhoids, took a picture and then removed the scope. The patient tolerated the procedure and he was recovered in the endoscopy suite. Job ID: [id number] DocumentID: [id number] Dictated Date: 11/09/2018 18:47:45 Embossing Calender Operator Date: 11/10/2018 00:41:09 Dictated By: PRABHJOT ALFORD DO
== END 2018-11-08 15:55 | disposition home or self-care (01) ==
LOC: ENDO 13:02
PROVIDERS: ATTEND Surgery
DX: K29.50 Unspecified chronic gastritis without bleeding (principal); D12.4 Benign neoplasm of descending colon; K63.89 Other specified diseases of intestine; K64.8 Other hemorrhoids; D64.9 Anemia, unspecified; R13.14 Dysphagia, pharyngoesophageal phase; Z86.010 Personal history of colon polyps; I10 Essential (primary) hypertension; R41.9 Unspecified symptoms and signs involving cognitive functions and awareness; Z80.0 Family history of malignant neoplasm of digestive organs; F32.9 Major depressive disorder, single episode, unspecified; K21.9 Gastro-esophageal reflux disease without esophagitis; Z79.899 Other long term (current) drug therapy
CPT/HCPCS: 88305

== ENCOUNTER → 2019-08-01 | Outpatient (CLI) | payer OTHER ==
[~2019-08-01] MED LIST changes: -GABA600T2 PO; +GBPN600T PO
--- NOTE | 2019-08-01 17:07 | Diagnostic Imaging Report ---
EXAMINATION: Ultrasound noninvasive extremity. INDICATION: Decreased pedal pulses. FINDINGS: There are no prior studies available for comparison. The ankle-brachial indices were obtained in the usual manner. The ankle-brachial index on the right is 1.26 and on the left 1.21 (normal 1.0 or greater). IMPRESSION: The ankle-brachial indices are within normal limits. Dictated by: Dictated on workstation # [id number]
== END ==
LOC: RAD 10:53
PROVIDERS: ATTEND Family Medicine
DX: R09.89 Other specified symptoms and signs involving the circulatory and respiratory systems (principal)
CPT/HCPCS: 93922

== ENCOUNTER 2019-08-05 09:35 | Emergency (ER) | payer OTHER ==
[~2019-08-05] VITALS: Ht 66 cm; Wt 82.0 kg
[2019-08-05] MEDS ORDERED: LACTATED RINGERS 1,000 ML IV ONE (10:17)
[2019-08-05 10:30] LABS: BASOPHILS % (AUTO) 0 % (0-10); EOSINOPHILS # (AUTO) 0.4 10^3/uL (0.0-0.3); EOSINOPHILS % (AUTO) 3 % (0-10); HEMATOCRIT 42 % (40-54); HEMOGLOBIN 14.4 G/DL (13.3-17.7); LYMPHOCYTES # (AUTO) 1.2 X 10^3 (1.0-4.0); LYMPHOCYTES % (AUTO) 10 % (12-44); MEAN CORPUSCULAR HEMOGLOBIN 30 PG (25-34); MEAN CORPUSCULAR HGB CONC 34 G/DL (32-36); MEAN CORPUSCULAR VOLUME 88 FL (80-99); MEAN PLATELET VOLUME 9.2 FL (7.4-10.4); MONOCYTES # (AUTO) 0.8 X 10^3 (0.0-1.0); MONOCYTES % (AUTO) 7 % (0-12); NEUTROPHILS # (AUTO) 9.3 X 10^3 (1.8-7.8); NEUTROPHILS % (AUTO) 79 % (42-75); PLATELET COUNT 325 10^3/uL (130-400); WHITE BLOOD COUNT 11.7 10^3/uL (4.3-11.0)
[2019-08-05] MEDS ORDERED: ONDANSETRON 4 MG/2 ML (SDV) Z0FRAN IVP ONE (10:30)
[2019-08-05 10:44] LABS: ALANINE AMINOTRANSFERASE 35 U/L (0-55); ALBUMIN 4.3 GM/DL (3.2-4.5); ALKALINE PHOSPHATASE 68 U/L (40-136); AMYLASE 78 U/L (25-125); BILIRUBIN,TOTAL 0.5 MG/DL (0.1-1.0); BUN/CREATININE RATIO 10; CALCIUM 9.3 MG/DL (8.5-10.1); CARBON DIOXIDE 22 MMOL/L (21-32); CHLORIDE 107 MMOL/L (98-107); CREATININE SERUM 1.01 MG/DL (0.60-1.30); GFR ESTIMATED > 60; GLUCOSE 96 MG/DL (70-105); LIPASE 11 U/L (8-78); MAGNESIUM 1.8 MG/DL (1.6-2.4); POTASSIUM 3.3 MMOL/L (3.6-5.0); SODIUM 139 MMOL/L (135-145); TOTAL PROTEIN 7.5 GM/DL (6.4-8.2)
[2019-08-05] MEDS ORDERED: CATHETER FLUSH 10 ML SYR IV PRN (11:00)
[2019-08-05] MEDS ORDERED: HOLD METFORMIN - RECEIVED CONTRAST 20 ML VIAL IV SCH (11:00)
[2019-08-05] MEDS ORDERED: NS 100 ML (IVPB) BAG IV ONE (11:00)
[2019-08-05] MEDS ORDERED: IOHEXOL 350 MG/ML 100 ML (OMNIPAQUE 350) VIAL IV ONE (11:00)
--- NOTE | 2019-08-05 11:16 | Diagnostic Imaging Report ---
PROCEDURE: CT abdomen and pelvis with contrast. TECHNIQUE: Multiple contiguous axial images were obtained through the abdomen and pelvis after administration of intravenous contrast. Auto Exposure Controls were utilized during the CT exam to meet ALARA standards for radiation dose reduction. INDICATION: Nausea, vomiting, diarrhea. COMPARISON: None FINDINGS: The lung bases demonstrate dependent atelectasis. The heart is normal in size. There is no pericardial effusion. The liver demonstrates no focal lesions. The spleen is normal. The pancreas is normal. The adrenal glands are normal. The kidneys are unremarkable. There is moderate distention of the stomach. There is no evidence of appendicitis. There is borderline wall thickening in the descending and transverse colon. No free fluid or free air is seen. No acute osseous abnormalities seen. IMPRESSION: 1. Mild wall thickening in the colon, may represent a colitis. 2. Moderate distention of the stomach. No small bowel obstruction is seen. Dictated by: Dictated on workstation # [id number]
--- NOTE | 2019-08-05 11:17 | Diagnostic Imaging Report ---
PATIENT HISTORY: Nausea, vomiting, and diarrhea. TECHNIQUE: Frontal view of the chest. Upright and supine frontal views of the abdomen COMPARISON: None FINDINGS: Lung volumes are normal. No focal consolidation is seen. There is no pleural effusion or pneumothorax. The cardiac silhouette is normal in size. There is a nonspecific bowel gas pattern. No high-grade small bowel distention is seen. The stomach is moderately distended. Contrast is seen in the kidneys, ureters and bladder. IMPRESSION: 1. Nonspecific bowel gas pattern without significant bowel distention. The stomach is moderately distended. 2. No acute pulmonary abnormality. Dictated by: Dictated on workstation # [id number]
--- NOTE | 2019-08-05 11:22 | NUR ---
RESTING IN BED ET DENIES NEEDS AT THIS TIME. STATES THE ZOFRAN HELPED HIS NAUSEA.
[2019-08-05 11:23] LABS: BILIRUBIN,URINE NEGATIVE (NEGATIVE); CLARITY,URINE CLEAR; COLOR,URINE YELLOW; GLUCOSE, URINE (UA) NEGATIVE (NEGATIVE); KETONES,URINE NEGATIVE (NEGATIVE); LEUKOCYTE ESTERASE ,URINE NEGATIVE (NEGATIVE); NITRITE,URINE NEGATIVE (NEGATIVE); PH,URINE 6 (5-9); PROTEIN,URINE NEGATIVE (NEGATIVE); UROBILINOGEN,URINE NORMAL (NORMAL)
[2019-08-05 11:48] LABS: BACTERIA,URINE TRACE /HPF
[2019-08-05] MEDS ORDERED: CIPR-225 PO (11:52)
[2019-08-05] MEDS ORDERED: HYOS0.1283 SL (11:52)
[2019-08-05] MEDS ORDERED: METR500T PO (11:52)
[2019-08-05] MEDS ORDERED: ONDA8TAB13 PO (11:52)
--- NOTE | 2019-08-05 11:52 | ED GI ---
General Chief Complaint: Abdominal/GI Problems Stated Complaint: V/D/CHILLS Nursing Triage Note: ARRIVED VIA AMB TO ROOM 10. COMPLAINS OF V/D CHILLS STARTING THRUSDAY. Sepsis Screen: No Definite Risk Allergies and Home Medications Allergies Coded Allergies: No Known Drug Allergies (Unverified , 11/06/18) Home Medications Baclofen 20 Mg Tablet, 30 MG PO TID, (Reported) Ciprofloxacin HCl 500 Mg Tablet, 500 MG PO BID Prescribed by: KRIS SOSA on 08/05/19 1152 Duloxetine HCl 60 Mg Capsule.dr, 60 MG PO BID, (Reported) Gabapentin 600 Mg Tablet, 600 MG PO TID, (Reported) Hyoscyamine Sulfate 0.125 Mg Tab.subl, 1-2 TAB SL Q4H Prescribed by: KRIS SOSA on 08/05/19 1152 Lisinopril 20 Mg Tablet, 20 MG PO DAILY, (Reported) Meloxicam 7.5 Mg Tablet, 7.5 MG PO DAILY, (Reported) Metronidazole 500 Mg Tablet, 500 MG PO QID Prescribed by: KRIS SOSA on 08/05/19 1152 Ondansetron 8 Mg Tab.rapdis, 8 MG PO Q6H Prescribed by: KRIS SOSA on 08/05/19 1152 Tizanidine HCl 4 Mg Capsule, 4 MG PO TID, (Reported) Tramadol HCl 50 Mg Tablet, 50 MG PO TID, (Reported) Past Fgpmzxd-Ioplhw-Uibtfp Hx Patient Social History Alcohol Use: Denies Use Recreational Drug Use: No Smoking Status: Never a Smoker Recent Foreign Travel: No Contact w/Someone Who Travel: No Recent Infectious Disease Expo: No Recent Hopitalizations: No Seasonal Allergies Seasonal Allergies: Yes Past Medical History Surgeries: Yes (SHOULDERS BILAT, BILAT KNEE SCOPES) Orthopedic Respiratory: No Cardiac: Yes Hypertension Neurological: No (HAS TREMORS) Reproductive Disorders: No Sexually Transmitted Disease: No HIV/AIDS: No Genitourinary: No Gastrointestinal: Yes Gastroesophageal Reflux, Chronic Diarrhea, Polyps Musculoskeletal: Yes Arthritis, Chronic Back Pain Endocrine: No HEENT: No Cancer: No Psychosocial: Yes Anxiety, Depression Integumentary: No Blood Disorders: No Adverse Reaction/Blood Tranf: No (N/A) Physical Exam Vital Signs Vital Signs - First Documented 08/05/19 09:50 Temp 36.5 Pulse 89 Resp 16 B/P (MAP) 139/88 (105) Pulse Ox 98 O2 Delivery Room Air Capillary Refill : Less Than 3 Seconds Height/Weight/BMI Height: 5'6.00" Weight: 175lbs. 0.0oz. 79.701624gj; 188.00 BMI Method: Focused Exam Lactate Level 08/05/19 10:10: Lactic Acid Level 0.88 Lactic Acid Level Laboratory Tests Test 08/05/19 10:10 Lactic Acid Level 0.88 MMOL/L (0.50-2.00) Progress/Results/Core Measures Results/Orders Lab Results Laboratory Tests Test 08/05/19 10:10 08/05/19 11:13 Range/Units White Blood Count 11.7 H 4.3-11.0 10^3/uL Red Blood Count 4.77 4.35-5.85 10^6/uL Hemoglobin 14.4 13.3-17.7 G/DL Hematocrit 42 40-54 % Mean Corpuscular Volume 88 80-99 FL Mean Corpuscular Hemoglobin 30 25-34 PG Mean Corpuscular Hemoglobin Concent 34 32-36 G/DL Red Cell Distribution Width 13.0 10.0-14.5 % Platelet Count 325 130-400 10^3/uL Mean Platelet Volume 9.2 7.4-10.4 FL Neutrophils (%) (Auto) 79 H 42-75 % Lymphocytes (%) (Auto) 10 L 12-44 % Monocytes (%) (Auto) 7 0-12 % Eosinophils (%) (Auto) 3 0-10 % Basophils (%) (Auto) 0 0-10 % Neutrophils # (Auto) 9.3 H 1.8-7.8 X 10^3 Lymphocytes # (Auto) 1.2 1.0-4.0 X 10^3 Monocytes # (Auto) 0.8 0.0-1.0 X 10^3 Eosinophils # (Auto) 0.4 H 0.0-0.3 10^3/uL Basophils # (Auto) 0.0 0.0-0.1 10^3/uL Sodium Level 139 135-145 MMOL/L Potassium Level 3.3 L 3.6-5.0 MMOL/L Chloride Level 107 98-107 MMOL/L Carbon Dioxide Level 22 21-32 MMOL/L Anion Gap 10 5-14 MMOL/L Blood Urea Nitrogen 10 7-18 MG/DL Creatinine 1.01 0.60-1.30 MG/DL Estimat Glomerular Filtration Rate > 60 BUN/Creatinine Ratio 10 Glucose Level 96 70-105 MG/DL Lactic Acid Level 0.88 0.50-2.00 MMOL/L Calcium Level 9.3 8.5-10.1 MG/DL Corrected Calcium 9.1 8.5-10.1 MG/DL Magnesium Level 1.8 1.6-2.4 MG/DL Total Bilirubin 0.5 0.1-1.0 MG/DL Aspartate Amino Transf (AST/SGOT) 21 5-34 U/L Alanine Aminotransferase (ALT/SGPT) 35 0-55 U/L Alkaline Phosphatase 68 40-136 U/L Total Protein 7.5 6.4-8.2 GM/DL Albumin 4.3 3.2-4.5 GM/DL Amylase Level 78 25-125 U/L Lipase 11 8-78 U/L Urine Color YELLOW Urine Clarity CLEAR Urine pH 6 5-9 Urine Specific Cuthbert 1.010 L 1.016-1.022 Urine Protein NEGATIVE NEGATIVE Urine Glucose (UA) NEGATIVE NEGATIVE Urine Ketones NEGATIVE NEGATIVE Urine Nitrite NEGATIVE NEGATIVE Urine Bilirubin NEGATIVE NEGATIVE Urine Urobilinogen NORMAL NORMAL MG/DL Urine Leukocyte Esterase NEGATIVE NEGATIVE Urine RBC (Auto) NEGATIVE NEGATIVE Urine RBC NONE /HPF Urine WBC NONE /HPF Urine Crystals NONE /LPF Urine Bacteria TRACE /HPF Urine Casts NONE /LPF Urine Mucus NEGATIVE /LPF Urine Culture Indicated NO My Orders Orders - KRIS SOSA DO Ed Iv/Invasive Line Start (08/05/19 10:17) Amylase (08/05/19 10:17) Cbc With Automated Diff (08/05/19 10:17) Comprehensive Metabolic Panel (08/05/19 10:17) Lactic Acid Analyzer (08/05/19 10:17) Lipase (08/05/19 10:17) Magnesium (08/05/19 10:17) Ua Culture If Indicated (08/05/19 10:17) Blood Culture (08/05/19 10:17) Ed Iv/Invasive Line Start (08/05/19 10:17) Lactated Ringers (Lr 1000 Ml Iv Solution (08/05/19 10:17) Ondansetron Injection (Zofran Injectio (08/05/19 10:30) Ct Abdomen/Pelvis W (08/05/19 10:45) Acute Abd Series (08/05/19 10:45) Ed Iv/Invasive Line Start (08/05/19 10:45) Iohexol Injection (Omnipaque 350 Mg/Ml 1 (08/05/19 11:00) Received Contrast (Hold Metformin- Contr (08/05/19 11:00) Sodium Chloride Flush (Catheter Flush Sy (08/05/19 11:00) Ns (Ivpb) (Sodium Chloride 0.9% Ivpb Bag (08/05/19 11:00) Hyoscyamine Sl Tablet (Levsin Sl Tablet) (08/05/19 12:00) Pantoprazole Tablet (Protonix Tablet) (08/05/19 12:00) Medications Given in ED Current Medications Medications Dose Ordered Sig/Amaury Route Start Time Stop Time Status Last Admin Dose Admin Iohexol 100 ml ONCE ONCE IV 08/05/19 11:00 08/05/19 11:01 DC 08/05/19 11:00 100 ML Lactated Ringer's 1,000 ml @ 0 mls/hr Q0M ONCE IV 08/05/19 10:17 08/05/19 10:19 DC 08/05/19 10:30 1,000 MLS/HR Ondansetron HCl 4 mg ONCE ONCE IVP 08/05/19 10:30 08/05/19 10:31 DC 08/05/19 10:30 4 MG Sodium Chloride 10 ml NEEDED PRN IV 08/05/19 11:00 08/05/19 11:00 10 ML Sodium Chloride 100 ml ONCE ONCE IV 08/05/19 11:00 08/05/19 11:01 DC 08/05/19 11:00 80 ML Vital Signs/I&O 08/05/19 09:50 Temp 36.5 Pulse 89 Resp 16 B/P (MAP) 139/88 (105) Pulse Ox 98 O2 Delivery Room Air Blood Pressure Mean: 105 Departure Impression Primary Impression: Colitis Additional Impressions: Gastric distention GERD SYMPTOMS Disposition: 01 HOME, SELF-CARE Condition: Improved Departure-Patient Inst. Referrals: HEBERT RUBIN BETHANY N MD (PCP/Family) Primary Care Physician Patient Instructions: Acid Reflux (Gastroesophageal Reflux Disease), Adult (DC), Colitis (DC), Gastric Outlet Obstruction, Adult Add. Discharge Instructions: CLEAR LIQUIDS--WATER, BROTH, JELLO, GATORADE WHEN YOUR NAUSEA AND VOMITING IS GONE, ADD BRATS DIET TO CLEAR LIQUIDS--BANANAS, RICE, APPLESAUCE, TOAST, SALTINES FOLLOW UP WITH DR. RUBIN THIS WEEK FOR FURTHER CARE, RETURN TO ER IF WORSE All discharge instructions reviewed with patient and/or family. Voiced understanding. Scripts Sucralfate (Carafate) 1 Gm Tablet 1 GM PO QIDACHS, #60 TAB Prov: KRIS SOSA DO 08/05/19 Pantoprazole Sodium (Protonix) 40 Mg Tablet.dr 40 MG PO DAILY, #15 TAB Prov: KRIS SOSA DO 08/05/19 Ondansetron (Ondansetron Odt) 8 Mg Tab.rapdis 8 MG PO Q6H for Nausea/Vomiting, #10 TAB Prov: KRIS SOSA DO 08/05/19 Hyoscyamine Sulfate (Levsin-Sl) 0.125 Mg Tab.subl 1-2 TAB SL Q4H for Abdominal Pain, #15 TAB Prov: KRIS SOSA DO 08/05/19 Metronidazole (Flagyl) 500 Mg Tablet 500 MG PO QID for FOR INFECTION, #40 TAB Prov: KRIS SOSA DO 08/05/19 Ciprofloxacin HCl (Cipro) 500 Mg Tablet 500 MG PO BID, #20 TAB Prov: KRIS SOSA DO 08/05/19 KRIS SOSA DO Aug 05, 2019 11:52
[2019-08-05] MEDS ORDERED: SUCR1TAB36 PO (11:53)
[2019-08-05] MEDS ORDERED: PANT40TA2 PO (11:53)
[2019-08-05] MEDS ORDERED: HYOSCYAMINE 0.125 MG (LEVSIN) TAB PO ONE (12:00)
[2019-08-05] MEDS ORDERED: PANTOPRAZOLE 40 MG (PROTONIX) TAB PO ONE (12:00)
[2019-08-05 12:05] VITALS: BP 129/80
== END 2019-08-05 12:05 | disposition home or self-care (01) ==
LOC: EDUNIT# 09:35 → ER 09:36
DX: K52.9 Noninfective gastroenteritis and colitis, unspecified (principal); R14.0 Abdominal distension (gaseous); I10 Essential (primary) hypertension; K21.9 Gastro-esophageal reflux disease without esophagitis; F41.9 Anxiety disorder, unspecified; F32.9 Major depressive disorder, single episode, unspecified; Z86.010 Personal history of colon polyps
CPT/HCPCS: 36415; 74022; 74177; 80053; 81000; 82150; 83605; 83690; 83735; 85025; 87040

== ENCOUNTER → 2019-08-15 | Outpatient (CLI) | payer OTHER ==
[~2019-08-15] MED LIST changes: +BARIUM SUSPENSION 105% (LIQUID POLIBAR PLUS) 240 ML/DOSE PO ONE; +BARIUM SUSPENSION 60% (LIQUID EZ PAQUE) 240 ML DOSE PO ONE; +CIPR-225 PO; +HYOS0.1283 SL; +METR500T PO; +ONDA8TAB13 PO; +PANT40TA2 PO; +SUCR1TAB36 PO
--- NOTE | 2019-08-15 13:37 | Diagnostic Imaging Report ---
INDICATION: Dysphagia. Patient reports feeling of food getting stuck in the upper esophageal region. TECHNIQUE: The patient ingested effervescent crystals as well as thin and thick barium, and imaging of the esophagus was performed. FINDINGS: Preliminary radiograph is unremarkable. The esophagus has a smooth contour. No mass or stricture is identified. No gastroesophageal reflux or hiatal hernia is demonstrated. IMPRESSION: Unremarkable esophagram. Dictated by: Dictated on workstation # [id number]
== END ==
LOC: RAD 09:13
PROVIDERS: ATTEND Surgery
DX: R13.10 Dysphagia, unspecified (principal)
CPT/HCPCS: 74220

== ENCOUNTER 2020-09-14 22:20 | Emergency (ER) | payer SELFPAY ==
[~2020-09-14 22:20] MED LIST changes: -BARIUM SUSPENSION 105% (LIQUID POLIBAR PLUS) 240 ML/DOSE PO ONE; -BARIUM SUSPENSION 60% (LIQUID EZ PAQUE) 240 ML DOSE PO ONE; -TRAM50TA2 PO; +TRM50T PO
[2020-09-14] MEDS ORDERED: AMOX-358 PO (22:39)
[2020-09-14] MEDS ORDERED: NF-CIPDEC OT (22:39)
--- NOTE | 2020-09-14 22:39 | ED EENT ---
History of Present Illness General Chief Complaint: Ear Problems Stated Complaint: BILATERAL EAR ACHE Source: patient Exam Limitations: no limitations History of Present Illness Date Seen by Provider: Sep 14, 2020 Time Seen by Provider: 22:21 Initial Comments Patient presents to the ER by private conveyance with chief complaint of 2 days progressively worsening pain in bilateral ears without associated dental pain. No discharge from the ears. He has been packing them with cotton. He used Tylenol and meloxicam earlier tonight. He has tramadol for his chronic back pain which he tried as well as Ambien without success. No fevers, chills, sick contacts, nausea vomiting cough or shortness of breath. He is on Flonase daily. Allergies and Home Medications Allergies Coded Allergies: No Known Drug Allergies (Unverified , 11/06/18) Home Medications Baclofen 20 Mg Tablet, 30 MG PO TID, (Reported) Ciprofloxacin HCl 500 Mg Tablet, 500 MG PO BID Prescribed by: KRIS SOSA on 08/05/19 115 Duloxetine HCl 60 Mg Capsule.dr, 60 MG PO BID, (Reported) Gabapentin 600 Mg Tablet, 600 MG PO TID, (Reported) Hyoscyamine Sulfate 0.125 Mg Tab.subl, 1-2 TAB SL Q4H Prescribed by: KRIS SOSA on 08/05/19 115 Lisinopril 20 Mg Tablet, 20 MG PO DAILY, (Reported) Meloxicam 7.5 Mg Tablet, 7.5 MG PO DAILY, (Reported) Metronidazole 500 Mg Tablet, 500 MG PO QID Prescribed by: KRIS SOSA on 08/05/19 115 Ondansetron 8 Mg Tab.rapdis, 8 MG PO Q6H Prescribed by: KRIS SOSA on 08/05/19 115 Pantoprazole Sodium 40 Mg Tablet.dr, 40 MG PO DAILY Prescribed by: KRIS SOSA on 08/05/19 115 Sucralfate 1 Gm Tablet, 1 GM PO QIDACHS Prescribed by: KRIS SOSA on 08/05/19 115 Tizanidine HCl 4 Mg Capsule, 4 MG PO TID, (Reported) Tramadol HCl 50 Mg Tablet, 50 MG PO TID, (Reported) Patient Home Medication List Home Medication List Reviewed: Yes Review of Systems Review of Systems Constitutional: No chills, No diaphoresis Eyes: Denies Blindness, Denies Drainage Ears: Denies Dizziness; Pain; Denies Bloody Discharge, Denies Clear Discharge, Denies Purulent Discharge Nose: denies clots, denies congestion Mouth: denies clots, denies pain, denies swelling Throat: denies pain, denies swelling Respiratory: No cough, No short of breath All Other Systems Reviewed Negative Unless Noted: Yes Past Gnlxntp-Mnqxim-Ifyacv Hx Patient Social History Alcohol Use: Denies Use Recreational Drug Use: No Smoking Status: Never a Smoker Recent Foreign Travel: No Contact w/Someone Who Travel: No Recent Hopitalizations: No Seasonal Allergies Seasonal Allergies: Yes Past Medical History Surgeries: Yes (SHOULDERS BILAT, BILAT KNEE SCOPES) Orthopedic Respiratory: No Cardiac: Yes Hypertension Neurological: No (HAS TREMORS) Reproductive Disorders: No Sexually Transmitted Disease: No HIV/AIDS: No Genitourinary: No Gastrointestinal: Yes Gastroesophageal Reflux, Chronic Diarrhea, Polyps Musculoskeletal: Yes Arthritis, Chronic Back Pain Endocrine: No HEENT: No Cancer: No Psychosocial: Yes Anxiety, Depression Integumentary: No Blood Disorders: No Adverse Reaction/Blood Tranf: No (N/A) Physical Exam Height, Weight, BMI Height: 5'6.00" Weight: 175lbs. 0.0oz. 79.707920kg; 188.00 BMI Method: General Appearance: WD/WN Eyes: bilateral eye normal inspection, bilateral eye PERRL, bilateral eye EOMI Ears: right ear TM dull, right ear TM red; left ear TM normal; bilateral ear auricle normal, bilateral ear erythema (canal and injected eardrum), bilateral ear tenderness Progress/Results/Core Measures Progress Progress Note : Time: 22:35 Progress Note Bilateral otitis externa and right sided otitis media. Plan to put him on Augmentin and Ciprodex. Departure Impression Primary Impression: Otitis externa Qualified Codes: H60.313 - Diffuse otitis externa, bilateral Additional Impression: Otitis media Qualified Codes: H66.001 - Acute suppurative otitis media without spontaneous rupture of ear drum, right ear Disposition: 01 HOME, SELF-CARE Condition: Stable Departure-Patient Inst. Decision time for Depature: 22:36 Referrals: ANNAMARIE SMILEY MD (PCP/Family) Primary Care Physician Patient Instructions: Ear Infections (Otitis Media) in Children (DC), Outer Ear Infection (DC), DR. URBAN-MIDDLE EAR Add. Discharge Instructions: Apply 2 drops of Ciprodex to each ear twice a day. Leave the ears open. Tylenol 1000 mg every 8 hours as necessary for pain. Continue using her medications as prescribed. Warm moist compresses applied directly to the ear may be helpful. Augmentin 1 tablet twice a day with food for 10 days. Please take this to completion. If you're not seeing improvement in 3-4 days then you need to follow-up with your primary care doctor. All discharge instructions reviewed with patient and/or family. Voiced understanding. Scripts Ciprofloxacin HCl/Dexameth (Ciprodex Otic Suspension) 7.5 Ml Soln 2 DROP OT BID for 7 Days, #1 EA 0 Refills Prov: KARINA FRIEDMAN 09/14/20 Amoxicillin/Potassium Clav (Augmentin 875-125 Tablet) 1 Each Tablet 1 EACH PO BID for 10 Days, #20 TAB 0 Refills Prov: KARINA FRIEDMAN 09/14/20 Work/School Note: Work Release Form Date Seen in the Emergency Department: Sep 14, 2020 Return to Work: Sep 16, 2020 Restrictions: No Restrictions KARINA FRIEDMAN Sep 14, 2020 22:38
[2020-09-14 22:41] VITALS: BP 129/65
[2020-09-14] MEDS ORDERED: KETOROLAC 60 MG/2 ML VIAL IM ONE (22:45)
== END 2020-09-14 22:42 | disposition home or self-care (01) ==
LOC: EDUNIT# 22:20 → ER FS 22:23
DX: H60.93 Unspecified otitis externa, bilateral (principal); H66.93 Otitis media, unspecified, bilateral; I10 Essential (primary) hypertension; K21.9 Gastro-esophageal reflux disease without esophagitis; F41.9 Anxiety disorder, unspecified; F32.9 Major depressive disorder, single episode, unspecified
CPT/HCPCS: 99284